=== PATIENT | female | born 1935 | race Caucasian/White ===

== ENCOUNTER 2017-03-12 03:55 | Inpatient (IN) | payer OTHER, MEDICARE ==
[~2017-03-12] VITALS: Ht 160 cm; Wt 71.8 kg
[~2017-03-12 03:55] MED LIST: ADVAIR 250-501 EACH INH; ANASTROZOLE1 M1 PO; ASPIRIN EC81 M1 PO; BYSTOLIC5 M1 PO; LISINOPRIL10 M1 PO; LIVALO4 M1; PEPCID20 M1 PO; SPIRIVA18 MCG INH; ZETIA10 M1 PO
--- NOTE | 2017-03-12 15:08 | Admission Core Measures ---
Acute Coronary Syndrome Inclusion Criteria ACS Diagnosis No Inpatient Core Measures LDL Reminder: If No, please order W/I first 24hr of stay Congestive Heart Failure Inclusion Criteria CHF Diagnosis No Cerebrovascular accident Inclusion Criteria CVA/TIA Diagnosis No Inpatient Core Measures Bedside Swallow Eval Reminder: If BSE failed, place ST order Antithrombotic Reminder: Order Antithrombotic Medication by end of day 2 Antithrombotic Reminder: Document Reason Antithrombotic Not ordered by end of day 2 AFIB/Flutter Reminder: If Present, add to problem list AFIB/Flutter Reminder: Order Anticoag Medication for pts with AFIB/Flutter Atherosclerosis Reminder: If Present, add to problem list LDL Reminder: If No, please order W/I first 24hr of stay PT Order Reminder: If No, please order Venous thromboembolism Inpatient Core Measures VTE Risk Factors: Age > 40, Surgery [facility] VTE prophylaxis d/t No contraindications No VTE Pharm Prophylaxis d/t No contraindications Inclusion Criteria - Per Current guidelines, there needs to be overlap - treatment for the first 5 days of Warfarin therapy. - Parenteral Anticoagulation (IV or SC) needs to be - given along with Warfarin therapy. VTE Diagnosis No VTE Type NONE VTE Confirmed by (Test) NONE Problem List As ranked by this Provider includes Assessment & Plan 1. Lung cancer, upper lobe HOME MEDS Home Med List Anastrozole 1 MG TABLET 1 TAB PO DAILY BREAST CANCER (Reported) Aspirin (Ecotrin*) 81 MG TABLET.DR 1 TAB PO DAILY PROPHO (Reported) Ezetimibe (Zetia) 10 MG TABLET 1 TAB PO NIGHTLY CHOLESTEROL (Reported) Famotidine (Pepcid) 20 MG TABLET 1 TAB PO DAILY PRN GERD (Reported) Lisinopril 10 MG TABLET 1 TAB PO NIGHTLY HTN (Reported) Nebivolol HCl (Bystolic) 5 MG TABLET 1 TAB PO DAILY HTN (Reported) Tiotropium [place] (Spiriva) 18 MCG CAP.W.DEV 1 CAP INH DAILY COPD (Reported)
--- NOTE | 2017-03-12 15:41 | RADIOLOGY REPORT ---
EXAMINATION: XR PORTABLE CHEST CLINICAL INFORMATION: Status post right lobectomy. COMPARISON: CT from 02/11/2017 TECHNIQUE: Portable frontal view of the chest was obtained. FINDINGS: A right-sided chest tube is in place extending to the right apex. Cardiac leads overlie the chest. The lungs are well expanded. There is a hazy left basilar opacity suggestive of a small pleural effusion. Right perihilar opacity noted. There is no pneumothorax seen. Subcutaneous emphysema overlies the right chest wall. The cardiomediastinal silhouette is prominent with a calcified aorta. IMPRESSION: Right-sided chest tube in place with no pneumothorax seen. Right perihilar opacity is present. Small left pleural effusion.
--- NOTE | 2017-03-12 16:00 | Cons- CRCU ---
KIRA ALDRIDGE 03/12/17 1600: General Information and HPI Consulting Request Date of Consult: 03/12/17 Requested By: Dr jiménez Reason for Consult: s/p Right upper lobe wedge resection. Mediastinal lymph node dissection History of Present Illness: This is a 81 YO female previous smoker (quit 17 years ago), daily one glass of cocktail at dinner, no illicit drug abuse with past medical history of hypertension, hyperlipidemia, CAD s/p 1 stent in 2001, previous diagnosis of stage 2 breast cancer in 2012 s/p lumpectomy and radiation, susbsequent primary malignant neoplasm of bladder s/p cystourethroscopy, with fulgurations/resection of the bladder tumor and previous left lobe resection in 2013, found to be adenocarcinoma of lung, being followed after that with regular surveillance, with PET scan in november 2016 showing 8 mm spiculated lung nodule at the anterior inferior right perihilar part of the right upper lobe with increased metabolic activity and high suspicion for malignancy, was admitted to same-day surgery for right upper lobe wedge resection. She also had pulmonary function test at this and the current test compared to test done in 2013 prior to surgery, she has an FEV1 of 1.5 L which is 87% of predicted, compared to 1.8 L which was 100% predicted on previous surgery, her DLCO was 47% (compared to 76% before), therefore pulmonary clearance was obtained and patient was planned for the right upper lobe resection. She did have a nondiagnostic CT needle biopsy.She is now status post day 0 of Right upper lobe wedge resection with mediastinal lymph node dissection. Currently she did complain of 5-6 out of 10 pain at the incision site, however she has a MANAGER CARDIOVASCULAR pump, and she was asked to use it whenever in pain. Otherwise she did not have any other complaint, her vitals are stable. Allergies/Medications Current Medications: Current Medications Sig/Juaquin Start time Last Medication Dose Route Stop Time Status Admin Morphine Sulfate 100 MG Q24H PRN 03/12 1545 AC Sodium Chloride 48 ML IV Review of Systems Review of Systems Constitutional: Denies: chills, diaphoresis, fever, malaise, weakness. EENTM: Denies: blurred vision, double vision, visual changes. Cardiovascular: Denies: chest pain, edema, orthopena. Respiratory: Denies: see HPI. GI: Denies: abdominal pain, bloating, constipation. Genitourinary: Reports: no symptoms. Past History Medical History Cardiovascular: CAD, hypertension, hyperlipidemia Respiratory: COPD Cancer(s): bladder cancer, breast cancer, lung cancer Surgical History Surgical History: , lumpectomy, cystourethroscopy,partial mastectomy, angioplasty, PTCA in 2001,bladder tumor removal Psychosocial History Where Do You Live? Home Who Do You Live With? spouse Services at Home: None Smoking Status: Former Smoker ETOH Use: daily one glass Illicit Drug Use: denies illicit drug use Functional Ability ADLs Independent: dressing, eating, toileting, bathing. Ambulation: independent IADLs Independent: shopping, housework, finances, food prep, telephone, transportation , medication admin. Exam & Diagnostic Data Last 24 Hrs of Vital Signs/I&O Vital Signs Date Time Temp Pulse Resp B/P B/P Pulse O2 O2 Flow FiO2 Mean Ox Delivery Rate 03/12 193 Nasal 2.0L Cannula 03/12 1900 97.0 70 37 124/64 03/12 1900 95 Nasal 2.0L Cannula 03/12 1900 97.0 70 20 124/64 95 Nasal 2.0L Cannula 03/12 1900 98 Nasal 2.0L Cannula Physical Exam General Appearance: well developed/nourished, no apparent distress, alert, awake Head: atraumatic, normal appearance Eyes: Bilateral: PERRL, EOMI. Ears, Nose, Throat: oral thrush Neck: normal inspection, supple Respiratory: decreased breath sounds b/l, coarse sound right side, drain present. dressing present Cardiovascular: regular rate/rhythm Back: normal inspection Extremities: normal inspection Diagnostic Data CXR Results SERVICE DATE: 03/12/17 EXAM TYPE: RAD - XRY-PORTABLE CHEST XRAY EXAMINATION: XR PORTABLE CHEST CLINICAL INFORMATION: Status post right lobectomy. COMPARISON: CT from 02/11/2017 TECHNIQUE: Portable frontal view of the chest was obtained. FINDINGS: A right-sided chest tube is in place extending to the right apex. Cardiac leads overlie the chest. The lungs are well expanded. There is a hazy left basilar opacity suggestive of a small pleural effusion. Right perihilar opacity noted. There is no pneumothorax seen. Subcutaneous emphysema overlies the right chest wall. The cardiomediastinal silhouette is prominent with a calcified aorta. IMPRESSION: Right-sided chest tube in place with no pneumothorax seen. Right perihilar opacity is present. Small left pleural effusion. Other Results SERVICE DATE: 12/16/16 EXAM TYPE: PET - PET CT [facility] EXAMINATION: Whole-body PET CT scan. CLINICAL HISTORY: 81-year-old female with history of lung cancer, status post left upper lobar lobectomy. Found to have a suspicious spiculated right upper lobar 8 mm lung nodule on recent CT scan of the chest done on 12/08/2016. Follow-up whole-body PET CT scan is requested for further clarification.. COMPARISON: CT of the chest done on 12/08/2016.. TECHNIQUE: A whole body PET/CT scan was obtained following intravenous administration of 8.1 mCi of F-18 labeled FDG by the right antecubital superficial vein. 55 minutes following administration of the radiotracer, imaging was performed on an integrated 4 slice PET/CT scanner, with scanning from skull base to the mid thigh. CT scanning was performed without oral or intravenous contrast material. DLP: 452.83 mGy-cm. FINDINGS: HEAD AND NECK: No metabolically active disease is present. CHEST: The indexed 8 mm spiculated lung nodule seen along the anteroinferior perihilar part of the right upper lobe of the lung shows [id number] increase metabolic activity with maximum SUV of 3, highly suspicious for malignancy. Stable postsurgical changes of left upper lobar lung lobectomy present. Nonspecific ground-glass opacities are noted at left lower as well as right lower lobe of the lung without any metabolic activity. No metabolically active lymphadenopathy is identified within the mediastinum. Atherosclerotic disease including coronary artery calcifications are present. There is mild cardiomegaly present.. ABDOMEN AND PELVIS: No metabolically active disease is present. Incidental note is made of cholelithiasis without any CT features of acute cholecystitis or biliary obstruction. Moderate-sized posterior mediastinal hiatal hernia is noted. Diffuse atherosclerotic disease is noted within the aorta and is branches. MUSCULOSKELETAL SYSTEM: No metabolically active disease is noted.. IMPRESSION: 1. The indexed 8 mm clinically known spiculated lung nodule is seen at anteroinferior right perihilar part of the right upper lobe of the lung shows increased metabolic activity, highly suspicious for malignancy. 2. No evidence of any metabolic disease is identified within the mediastinum or remainder of the lung robertson on either side as well as within the abdomen and pelvis. 3. Incidental note is made of presence of cholelithiasis and moderate-sized posterior mediastinal hiatal hernia and diffuse atherosclerotic disease within the aorta. Assessment/Plan Impression/Plan: In summary this is a 81 YO female previous smoker (quit 17 years ago), daily one glass of cocktail at dinner, no illicit drug abuse with past medical history of hypertension, hyperlipidemia, CAD s/p 1 stent in 2001, previous diagnosis of stage 2 breast cancer in 2012 s/p lumpectomy and radiation, susbsequent primary malignant neoplasm of bladder s/p cystourethroscopy, with fulgurations/resection of the bladder tumor and previous left lobe resection in 2013, found to be adenocarcinoma of lung, being followed after that with regular surveillance, with PET scan in november 2016 showing 8 mm spiculated lung nodule at the anterior inferior right perihilar part of the right upper lobe with increased metabolic activity and high suspicion for malignancy, was admitted to same-day surgery for right upper lobe wedge resection, now status post right upper lobe wedge resection day 0. Her vitals now, she is afebrile, pulse of 70s, respiratory rate around 20 to 30s , blood pressure stable at 124/64, she is 95% saturating on 2 L of nasal cannula. no lab wokrk done today. Echocardiogram recently done on January 2017 showed normal left ventricular ejection fraction of 60%, diastolic dysfunction, see the entire report in the chart. Problem list along with assessment and plan. Problem #1 history of adenocarcinoma of the lung status post left and now right upper lobe wedge resection. Problem #2 history of hypertension. #3 history of hyperlipidemia. #4 history of coronary artery disease status post stent #5 history of bladder and breast cancer, now in remission. * We will observe the patient in the ICU after the resection. * ct monitor intakes and outputs. * Continue post thoracotomy care. * Continue to check electrolytes and replete as necessary. * Keep magnesium, phosphorus and potassium within normal limit. * Continue home medications from a.m. * Continue Bystolic 5 mg daily from tomorrow. * Continue zetia 10 mg daily from a.m. * Her blood pressure is on the lower side therefore we will hold antihypertensive medications for now. * Can resume from tomorrow lisinopril 10 mg daily depending on the blood pressure. Continue IV hydration. * Continue patient-controlled MANAGER CARDIOVASCULAR pump for pain management. * Continue Hooper's for now, discontinue whenever not needed. * Advance diet as tolerated. DVT prophylaxis with heparin. Out of bed to chair. Pain management with morphine MANAGER CARDIOVASCULAR Her home medication : Lisinopril 10 mg daily.anastrozole 1 mg daily, Zetia 10 mg daily,Advair 2 puffs daily, Spiriva 2 puffs daily, Bystolic 5 mg daily, Pepcid when necessary basis, baby aspirin 81 mg daily. Problem List: 1. Lung cancer 2. Lung cancer, upper lobe 3. Bladder cancer 4. Breast cancer 5. Hypertension 6. Hypercholesterolemia 7. COPD (chronic obstructive pulmonary disease) Consult Acknowledgment - Thank you for your consult request. ACOSTA THURMAN,THOMAS 03/12/17 2528: General Information and HPI Allergies/Medications Allergies: Coded Allergies: ciprofloxacin (From CIPRO) (? 03/11/17) hydromorphone (UNKNOWN 03/12/17) ragweed pollen (UNKNOWN 03/13/17) Home Med List: Anastrozole 1 MG TABLET 1 TAB PO DAILY BREAST CANCER (Reported) Aspirin (Ecotrin*) 81 MG TABLET.DR 1 TAB PO DAILY PROPHO (Reported) Ezetimibe (Zetia) 10 MG TABLET 1 TAB PO NIGHTLY CHOLESTEROL (Reported) Famotidine (Pepcid) 20 MG TABLET 1 TAB PO DAILY PRN GERD (Reported) Fluticasone/Salmeterol (Advair 250-50 Diskus) 250 MCG-50 MCG/DOSE BLST.W.DEV 1 PUF INH BID COPD (Reported) Lisinopril 10 MG TABLET 1 TAB PO NIGHTLY HTN (Reported) Nebivolol HCl (Bystolic) 5 MG TABLET 1 TAB PO DAILY HTN (Reported) Pitavastatin Cal[place] (Livalo) 4 MG TABLET CHOLESTEROL (Reported) Tiotropium [place] (Spiriva) 18 MCG CAP.W.DEV 1 CAP INH DAILY COPD (Reported) Exam & Diagnostic Data Last 48 Hrs of Labs/Roland: Laboratory Tests 03/13/17 0340: Anion Gap 9, Estimated GFR > 60, BUN/Creatinine Ratio 20.0, CBC w Diff MAN DIFF ORDERED, RBC 3.69 L, MCV 92.5, MCH 30.2, RDW 13.4, MPV 8.5, Gran % 89.2 H, Lymphocytes % 5.0 L, Monocytes % 5.6, Eosinophils % 0, Basophils % 0.2, Absolute Granulocytes 9.7 H, Segmented Neutrophils 83 H, Band Neutrophils 5, Absolute Lymphocytes 0.5 L, Lymphocytes 6 L, Monocytes 6, Absolute Monocytes 0.6, Absolute Eosinophils 0, Absolute Basophils 0, Platelet Estimate ADEQUATE, Polychromasia 1+, Hypochromic-Microcytic 1+, Poikilocytosis 1+, Ovalocytes 1+, PUBS MCHC 32.7 L, Fld Total RBCs Counted 100 Assessment/Plan Other Findings/Comments: Thomas Garay M.D. have examined this patient, reviewed available EMR data, personally reviewed images, discussed with resident/PA/JOINERY MACHINIST, discussed management plan with housestaff and nursing staff, discussed managment plan all of healthcare providers, discussed management plan with patient and/or family, agreed with resident/PA/JOINERY MACHINIST. The past history and parts of the chart have been autopopulated. 81 year old woman. Resection history of the left upper lobe performed by Dr. Jiménez 2013. Had a PFT 02/25/2017. Mild obstruction. FEV1 - 1.52 - 87%, FVC - 2.4 - 101% predicted. TLC - 4.42 - 90 % DLCO 47% Resumed Advair and Spiriva with improvement of symptoms. Notably her DLCO is reduced from 76% to 47%. She is doing otherwise very well with excellent room air saturation. Her CT shows 1. Interval significant increase in size of the right upper lobe mass is seen, suspicious for an enlarging malignant neoplasm. 2. Other multifocal areas of ill-defined groundglass opacities, primarily associated with airways remain relatively stable and are indeterminate in etiology. These will require continued serial follow-up assessment. 3. Borderline mediastinal adenopathy. 4. Post lumpectomy scarring in the left breast, unchanged. She is now s/p RUL wedge resection with a medisatinal LN dissection. Plan -post thoracotomy care -pain control -oob as tolerated -monitor ins/outs -TRC DVT prophylaxis at all times TTS 40 min Consult Acknowledgment - Thank you for your consult request.
--- NOTE | 2017-03-12 16:00 | Cons- CRCU ---
General Information and HPI Consulting Request Date of Consult: 03/12/17 Requested By: Dr. Obando Allergies/Medications Allergies: Coded Allergies: MDX - Hydromorphone (From Dilaudid) (UNKNOWN 09/23/13) DILAUDID PER ANTIBIOTIC ORDER SHEET OF 09/23/13 - SJS ciprofloxacin (From CIPRO) (? 03/11/17) Uncoded Allergies: ragweed (UNKNOWN 10/20/13) Home Med List: [ADVAIR] COPD (Reported) Anastrozole 1 MG TABLET 1 TAB PO DAILY BREAST CANCER (Reported) Aspirin (Ecotrin*) 81 MG TABLET.DR 1 TAB PO DAILY PROPHO (Reported) Ezetimibe (Zetia) 10 MG TABLET 1 TAB PO NIGHTLY CHOLESTEROL (Reported) Famotidine (Pepcid) 20 MG TABLET 1 TAB PO DAILY PRN GERD (Reported) Lisinopril 10 MG TABLET 1 TAB PO NIGHTLY HTN (Reported) Nebivolol HCl (Bystolic) 5 MG TABLET 1 TAB PO DAILY HTN (Reported) Pitavastatin Calcium (Livalo) 4 MG TABLET CHOLESTEROL (Reported) Tiotropium [place] (Spiriva) 18 MCG CAP.W.DEV 1 CAP INH DAILY COPD (Reported) Current Medications: Current Medications Sig/Juaquin Start time Last Medication Dose Route Stop Time Status Admin Morphine Sulfate 100 MG Q24H PRN 03/12 1545 AC Sodium Chloride 48 ML IV Past History Psychosocial History Services at Home: None Smoking Status: Unknown If Ever Smoked Assessment/Plan Consult Acknowledgment - Thank you for your consult request.
--- NOTE | 2017-03-12 17:09 | PN- Thoracic Surgery ---
Subjective Subjective: nausea, no vomiting. getting antiemetic now. pain present, but controlled. no sob. no oob yet. Objective Vital Signs and I&Os Intake & Output 03/12 1600 03/12 0800 03/12 0000 03/11 1600 03/11 0800 03/11 0000 Intake Total Output Total Balance Patient 160 lb Weight Physical Exam: GEN: nad CARD: s1s2 rrr PULM: decreased bs bl, coarse right, R lateral CT to lcws- no AL, serosang drainage in pleurovac, approx 50cc. dressings CDI, ttp at incision EXT: calves soft nt bl, ALPS on bl Results Recent Imaging Studies: PACU portable CXR: no PTX Assessment/Plan Assessment/Plan A: POD0 sp R thoracotomy, RUL wedge rsxn, with postop nausea and pain, otherwise stable. P: morphine clipper counters for pain hep sq, alps, oob advance diet as tolerated, HL once tolerating CT to lcws strict I&Os castaneda- keep for I&Os, immediate postop period appreciate medicine input cont home meds as ordered will seda Obando Core Measures/Miscellaneous Venous Thromboembolism VTE Risk Factors: Surgery VTE Contraindications: No Contraindications VTE Diagnosis: No VTE Type: NONE VTE Confirmed by (Test): NONE Beta Pam Is Beta Pam a Home Med? Yes If Yes, Was This Ordered Today? Yes Antibiotics Is Patient on Antibiotics? Yes If Yes: prophylaxis
--- NOTE | 2017-03-12 18:15 | Admission Certification ---
Admission Certification Certification Statement - As attending physician, I certify that at the time of - admission, based on clinical presentation, severity of - symptoms, need for further diagnostic testing and - therapeutic interventions, and risk of adverse outcomes - without in-hospital treatment, in my clinical assessment, - this patient requires an acute hospital stay for a minimum - of two nights or longer. I have also considered psychsocial - factors such as support system, advanced age, financial - issues, cognitive issues, and failed out-patient treatments, - past re-admission history, safety of patient, and lack of - compliance as applicable. Specific rationale supporting this admission is: Neto. chest surgery with intensive care unit stay
--- NOTE | 2017-03-12 18:20 | Operative Report ---
Operative/Inv Procedure Report Surgery Date: 03/12/17 Name of Procedure: Right upper lobe wedge resection. Mediastinal lymph node dissection Pre-Operative Diagnosis: Right upper lobe lung nodule Post-Operative Diagnosis: Right upper lobe adenocarcinoma Estimated Blood Loss: less than 50ml, 50ml to 100ml Surgeon/Winch Stripper: LAMINE THURMAN,ARNEL Burns Anesthesia: general endotracheal tube Operative/Procedure Note Note: After placement of monitoring lines and induction of general anesthesia the double-lumen endotracheal tube was properly positioned with fiberoptic bronchoscopy. The patient was placed in the left lateral decubitus position and her right chest was prepped with chlorhexidine scrub and draped in a sterile fashion. A posterolateral thoracotomy incision was made and the chest was entered through the fifth intercostal space. The tumor was seen in the major fissure at the base at the confluence of the major and minor fissures. Dissection was done to free it from the surrounding tissue and it was obvious that further dissection deep could potentially compromise the pulmonary artery branches to the lower lobe. The patient certainly was not in a position to tolerate any compromise of her lower lobe function. She was having episodes of minor desaturations that were fixed by ventilating the lung periodically. Given the above events a decision was made that a sub-anatomic resection was necessary and that a formal right upper lobectomy would be potentially hazardous for the patient. Wedge resections were done with total removal of the tumor and multiple applications of the ABDIAZIZ stapler. Intraoperative frozen section showed an adenocarcinoma. Lymph nodes were resected from level for level VII and level IX sent for permanent histology. The resection area was sprayed with Pro seal sprayed to seal air leaks. Long-acting rib blocks were placed posteriorly. The chest was drained with a 28 [place] chest tube placed to the apex. The ribs were reapproximated pericostal suture and the lung was reinsufflated. The incision was then closed anatomically with running Vicryl suture. The patient tolerated the procedure well and brought to the recovery room awake and extubated in stable condition.
[2017-03-12 19:00] VITALS: BP 124/64
[2017-03-12 21:00] VITALS: BP 80/64; BP 88/60
[2017-03-12 22:00] VITALS: BP 80/54; BP 86/50
[2017-03-12 23:59] VITALS: BP 98/52
[2017-03-13] VITALS (10 sets, daily range): BP systolic 98–139; BP diastolic 43–88
--- NOTE | 2017-03-13 02:35 | NUR ---
PATIENT IS A/O X 3, MOVES ALL THE LIMBS, OBEYS COMMANDS, COMPLAIN OF MILD RIGHT LATERAL CHEST WALL PAIN RELATED TO THE CHEST TUBE INSERTION, ON AUTO SEAT COVER INSTALLER MORPHINE. AFEBRILE, SINUS RHYTHM, SYSTOLIC NON INVASIVE BP IS RANGING FORM 80'S TO 90'S AND ITS CORRELATING WITH ARTERIAL LINE AND AUTO CALF BP. 500 ML OF D5 1/2 NS GIVEN BOLUS, BP PICKED UP TO HIGH 90'S. BREATHING ON 2 LITER NC, LUNGS IS CLEAR TO DIMINISHED, GOOD OXYGEN SATURATION. ABDOMEN IS SOFT, HAS GOOD BOWEL SOUNDS, ON CLEAR LIQUID DIET. TOMORROW TO START HEART HEALTHY DIET. RANDALL CATHETER IS INTACT NOTED WITH CLEAR YELLOW URINE OUTPUT AT 30 TO 60 ML/HR. SKIN IS INTACT EXCEPT FOR THE CHEST TUBE SITE INSERTION. AT 0230, DR. ELZBIETA ALMARAZ INFORMED THAT THE SYSTOLIC BP REMAIN AT THE 80'S SYSTOLIC AND ITS CORRELATES WITH THE ARTERIAL BP. AWAITING NEW ORDER.
--- NOTE | 2017-03-13 02:49 | NUR ---
AT 0247, RECEIVED A PHONE FROM DOCTOR ALMARAZ, ORDERED TO GIVE NS 500 ML OVER 1 HOUR, TO KEEP SYSTOLIC BP ABOVE 90 MMHG.
[2017-03-13 04:25] LABS: ABSOLUTE BASOPHIL COUNT 0 /CUMM (0.0-0.2); ABSOLUTE EOSINOPHIL COUNT 0 /CUMM (0.0-0.7); ABSOLUTE GRANULOCYTE CT 9.7 /CUMM (1.4-6.5); ABSOLUTE LYMPH COUNT 0.5 /CUMM (1.2-3.4); ABSOLUTE MONOCYTE COUNT 0.6 /CUMM (0.10-0.60); BASOPHIL % 0.2 % (0.0-2.0); EOSINOPHIL % 0 % (0-5); GRANULOCYTE % 89.2 % (42.2-75.2); HEMATOCRIT 34.1 % (37-47); MEAN CORPUSCULAR HGB 30.2 PG (27.0-31.0); MEAN CORPUSCULAR HGB CONC 32.7 G/DL (33.0-37.0); MEAN CORPUSCULAR VOLUME 92.5 FL (81.0-99.0); MEAN PLATELET VOLUME 8.5 FL (7.4-10.4); PLATELET COUNT 235 /CUMM (130-400); RBC DISTRIBUTION WIDTH 13.4 % (11.5-14.5); RED BLOOD CELL CT 3.69 /CUMM (4.20-5.40); WHITE BLOOD CELL COUNT 10.9 /CUMM (4.8-10.8)
--- NOTE | 2017-03-13 04:26 | PN- Thoracic Surgery ---
Subjective Subjective: The patient was seen this morning postoperatively day #1. She reports her pain is under adequate control and he denies any true chest pain, difficulty breathing, or palpitations. She had no other complaints at the current time. Objective Vital Signs and I&Os Vital Signs Date Time Temp Pulse Resp B/P B/P Pulse O2 O2 Flow FiO2 Mean Ox Delivery Rate 03/13 0044 96 Nasal 2.0L Cannula 03/13 0000 97.8 66 28 98/52 / 0000 97.8 66 28 110/50 / 0000 95 Nasal 2.0L Cannula 03/12 2359 97.8 66 28 98/52 95 Nasal 2.0L Cannula 03/12 2200 97.3 64 22 80/54 / 2200 97.3 64 22 86/50 15 2100 97.3 63 18 80/64 / 2100 97.3 63 17 88/60 03/12 1932 Nasal 2.0L Cannula 03/12 1900 97.0 70 37 124/64 03/12 1900 97.0 70 22 124/64 03/12 1900 95 Nasal 2.0L Cannula 03/12 1900 97.0 70 20 124/64 95 Nasal 2.0L Cannula 03/12 1900 98 Nasal 2.0L Cannula Intake & Output 03/13 0800 /16 0000 15 1600 15 0800 03/12 0000 03/11 1600 Intake Total 750 Output Total 625 Balance 125 Intake, IV 450 Intake, Oral 300 Output, Chest 275 Tube Drainage Output, Urine 350 Patient 159 lb 160 lb Weight Weight Reported by Patient Measurement Method Physical Exam: Gen.: Alert and in no obvious distress Skin: Warm and dry Chest: Right chest surgical dressing is slightly blood tinged but otherwise intact. His a chest tube in place with serosanguineous drainage in the Pleur- evac. There is no appreciated air leak. Cardiac: S1 and S2 regular Pulmonary: Bilateral breath sounds were equal and decreased at bases, transmitted chest tube noises in the right chest, no wheezes rales or rhonchi. Extremities: Bilateral lower extremities are warm without calf tenderness Assessment/Plan Assessment/Plan Assessment: 81-year-old female status post right thoracotomy with upper lobe wedge resection postoperative day #1. The patient is progressing as expected, her pain is under adequate control, and she is oxygenating adequately on minimal O2 requirements. Plan: Follow-up morning laboratory studies and chest x-ray Keep Hooper catheter and IV hydration until improved blood pressure Strict I's and O's Continue chest tube to suction. If the chest x-ray shows no pneumothorax the patient be put to waterseal Continue current pain regiment Out of bed to chair this morning GI and DVT prophylaxis Total respiratory care per postthoracotomy protocol Follow-up pulmonary/pedicle care consultation recommendations Core Measures/Miscellaneous Venous Thromboembolism VTE Risk Factors: Surgery VTE Contraindications: No Contraindications VTE Diagnosis: No VTE Type: NONE VTE Confirmed by (Test): NONE Beta Pam Is Beta Pam a Home Med? Yes If Yes, Was This Ordered Today? Yes Antibiotics Is Patient on Antibiotics? No
--- NOTE | 2017-03-13 07:30 | PN- Resident CRCU ---
AGUILAR THURMAN,ISARIL 03/13/17 0730: Subjective HPI/CRCU Issues: POD#1 post thoracotomy. Afebrile, hemodynamically stable, and saturating well on 2 L of oxygen. Chest pain is fairly controlled. She denies cough, dyspnea, or palpitation. Objective Vital Signs & I&O Last 8 Hrs of Vitals and I&O: Vital Signs Date Time Temp Pulse Resp B/P B/P Pulse O2 O2 Flow FiO2 Mean Ox Delivery Rate 03/13 0951 73 118/55 03/13 0800 97.7 66 24 114/60 03/13 0800 97.7 66 24 114/60 03/13 0800 96 Nasal 2.0L Cannula 03/13 0800 97.7 66 24 114/60 96 Nasal 2.0L Cannula 03/13 0600 97.5 66 27 102/52 03/13 0600 97.5 66 27 106/52 03/13 0400 97.5 64 29 132/88 03/13 0400 97.5 64 29 132/88 03/13 0400 95 Nasal 2.0L Cannula 03/13 0044 96 Nasal 2.0L Cannula 03/13 0000 97.8 66 28 98/52 / 0000 97.8 66 28 110/50 /16 0000 95 Nasal 2.0L Cannula 03/12 2359 97.8 66 28 98/52 95 Nasal 2.0L Cannula 03/12 2200 97.3 64 22 80/54 03/12 2200 97.3 64 22 86/50 03/12 2100 97.3 63 18 80/64 03/12 2100 97.3 63 17 88/60 03/12 1932 Nasal 2.0L Cannula 03/12 1900 97.0 70 37 124/64 03/12 1900 97.0 70 22 124/64 03/12 1900 95 Nasal 2.0L Cannula 03/12 1900 97.0 70 20 124/64 95 Nasal 2.0L Cannula 03/12 1900 98 Nasal 2.0L Cannula Intake & Output 03/13 1600 16 0800 03/13 0000 Intake Total 1925 750 Output Total 535 625 Balance 1390 125 Intake, IV 1675 450 Intake, Oral 250 300 Output, Chest 75 275 Tube Drainage Output, Urine 460 350 Patient 72.206 kg Weight Weight Reported by Patient Measurement Method Exam General Appearance: well developed/nourished, no apparent distress, alert, awake , comfortable Head: atraumatic, normal appearance Respiratory: mild scattered rhonchi Cardiovascular: regular rate/rhythm Gastrointestinal: normal bowel sounds, soft, non-tender Extremities: normal inspection, no edema Other Physical Findings: Chest tube drained 400 Ml of bloody fluid Current Medications: Current Medications Sig/Juaquin Start time Last Medication Dose Route Stop Time Status Admin Albuterol Sulfate 3 ML Q4 03/12 2200 AC 03/13 INH 0826 Anastrozole 1 MG DAILY 03/13 1000 AC 03/13 PO 0951 Budesonide/ 2 PUF BID 03/12 2200 AC 03/13 Formoterol Fumarate INH 0950 Calcium Carbonate 500 MG ONCE ONE 03/13 0900 DC 03/13 PO 03/13 0901 0903 Cefazolin Sodium 1,000 MG IQ8 03/12 1600 DC 03/13 IV 03/13 0001 0017 Dextrose/Sodium 500 ML .Q1H 03/12 2345 DC 03/13 Chloride IV 03/13 0044 0005 Dextrose/Sodium 1,000 ML .[id number] 03/12 1930 AC 03/13 Chloride IV 0906 Diphenhydramine HCl 50 MG .STK-MED ONE 03/12 1656 DC IM 03/12 1657 Ezetimibe 10 MG DAILY 03/13 1000 AC 03/13 PO 0950 Famotidine 20 MG DAILY 03/13 1000 AC 03/13 PO 0741 Heparin Sodium 5,000 UNIT Q8 03/12 2200 AC 03/13 (Porcine) SC 0515 Hydromorphone HCl 2 MG .STK-MED ONE 03/12 1512 DC IM 03/12 1513 Lisinopril 10 MG 1700 03/12 1930 AC PO Morphine Sulfate 200 MG CONTINOUS INFUSION 03/12 1930 CAN Sodium Chloride 86.67 ML IV 03/15 1929 Morphine Sulfate 10 MG .STK-MED ONE 03/12 1656 DC IM 03/12 1657 Morphine Sulfate 100 MG Q24H PRN 03/12 1545 AC Sodium Chloride 48 ML IV Morphine Sulfate 10 MG .STK-MED ONE 03/12 1512 DC IM 03/12 1513 Nebivolol 5 MG DAILY 03/13 1000 AC PO Ondansetron HCl 4 MG Q6P PRN 03/12 1930 AC 03/13 IV 0850 Sodium Chloride 500 ML BOLUS ONE 03/13 0245 DC / IV 03/13 0344 0245 Tiotropium [place] 1 PUF DAILY 03/13 1000 AC 03/13 INH 0950 Impression/Plan Impression/Problem List Impression: 81/F S/P right thoracotomy with upper lobe wedge resection POD#1. Saturating well on 2 L of oxygen, he reported pain being well controlled, just you in place. Physical Exam look normal #Lung cancer Post right thoracotomy * Keep oxygen above 92% * Continue monitor chest tube suction * We will repeat chest x-ray later today, if no pneumothorax she will be on under waterseal as per surgery * Continue current pain management * Ambulate MICHA * We will follow rib matcher and fitter recommendations #Hypertension and dyslipidemia * On Nebivolol and lisinopril (hold both given the low blood pressure) * On Ezetimibe for dyslipidemia. * Continue Strict I's and O's Heart healthy diet GI & DVT PPx: Full code Problem List: 1. COPD (chronic obstructive pulmonary disease) 2. Lung cancer Pain Ratin Tomorrow's Labs & Rationales: CBC and PEEP Plan DVT/Prophylaxis: THOMAS Quiñones MD 03/13/17 0859: Attending MD Review Statement Attending Sign Off Attending Cosign Statement: I have: examined this patient, reviewed avalbl EMR data, personally reviewd images, discussd w/resident/PA/CONTENT COORDINATOR, discussed mgmt plan w/lenin, discussed mgmt plan w/CM, discussed mgmt plan w/pt, agreed w/resident/PA/CONTENT COORDINATOR, amended to note. Other Findings: IThomas M.D. have examined this patient, reviewed available EMR data, personally reviewed images, discussed with resident/PA/CONTENT COORDINATOR, discussed management plan with housestaff and nursing staff, discussed managment plan all of healthcare providers, discussed management plan with patient and/or family, agreed with resident/PA/CONTENT COORDINATOR. The past history and parts of the chart have been autopopulated. 81 year old woman. Resection history of the left upper lobe performed by Dr. Obando 2013. Had a PFT 02/25/2017. Mild obstruction. FEV1 - 1.52 - 87%, FVC - 2.4 - 101% predicted. TLC - 4.42 - 90 % DLCO 47% Resumed Advair and Spiriva with improvement of symptoms. Notably her DLCO is reduced from 76% to 47%. She is doing otherwise very well with excellent room air saturation. Her CT shows 1. Interval significant increase in size of the right upper lobe mass is seen, suspicious for an enlarging malignant neoplasm. 2. Other multifocal areas of ill-defined groundglass opacities, primarily associated with airways remain relatively stable and are indeterminate in etiology. These will require continued serial follow-up assessment. 3. Borderline mediastinal adenopathy. 4. Post lumpectomy scarring in the left breast, unchanged. She is now s/p RUL wedge resection with a medisatinal LN dissection. Plan -post thoracotomy care -pain control -oob as tolerated -monitor ins/outs -TRC DVT prophylaxis at all times TTS 40 min
--- NOTE | 2017-03-13 08:16 | RADIOLOGY REPORT ---
EXAMINATION: XR PORTABLE CHEST CLINICAL INFORMATION: Right upper lobe wedge resection. COMPARISON: CXR from 12/23/2016 and 03/12/2017 TECHNIQUE: Portable frontal view of the chest was obtained. FINDINGS: Again noted is postoperative opacity in the perihilar region of the right lung, status post right upper lobe wedge resection, with right thoracostomy tube extending toward the apex of the hemithorax. No evidence of pneumothorax. There are no new pulmonary findings compared to the prior radiograph. Cardiomediastinal silhouette has stable size and configuration. Thoracic aorta is calcified. There is no overt pleural effusion. IMPRESSION: Stable appearance of the postoperative chest with right thoracostomy tube in place.
--- NOTE | 2017-03-13 11:24 | RADIOLOGY REPORT ---
EXAMINATION: XR PORTABLE CHEST CLINICAL INFORMATION: Chest tube off suction. Status post right upper lobe wedge resection. Assess for pneumothorax. COMPARISON: 03/13/2017 TECHNIQUE: Portable frontal view of the chest was obtained. FINDINGS: Right-sided chest tube remains in place. There is no pneumothorax visualized. Persistent right perihilar airspace opacity status post right upper lobe wedge resection. Hazy left basilar opacity again noted. The cardiomediastinal silhouette is unchanged, with a calcified aorta. IMPRESSION: No pneumothorax. Similar appearance of the lungs with right perihilar and left basilar opacities.
--- NOTE | 2017-03-13 19:47 | NUR ---
PT AAO AND ORIENTATED,2L NC NON PROD COUGH, [id number]%,MONITOR NSR, LAC IV HL., DSG TO BACK INTACT WITH SOME DRAINAGE FROM DAY SHIFT. HH DIET, POOR APPETITE DANGLED AT BEDSIDE,OOB TO BR TO VD,BACK TO BED VISITORS AT BEDSIDE. BEHAVIOR THERAPIST DEVICE IN USE BY PT. RESTING
[2017-03-14] VITALS (12 sets, daily range): BP systolic 100–143; BP diastolic 52–87
--- NOTE | 2017-03-14 02:12 | NUR ---
PATIENT IS A/O X 3, OPEN EYES SPONTANEOUSLY, PERRLA, MOVES ALL THE LIMBS, OBEYS COMMAND, COMPLAIN OF RIGHT LATERAL CHEST WALL PAIN S/P CHEST TUBE INSERTION AND MODERATE PAIN AT THE RIGHT UPPER BACK S/P WEDGE RESECTION, ON IV SHIPPING AND RECEIVING ASSOCIATE MORPHINE. VITALS SIGNS ARE STABLE HR=60'S TO 70'S, SBP=90'S TO 110'S, HAS A TMAX OF 100.5 AT 8PM, MD INFORMED, BLOOD CULTURE X 2 SENT, TYLENOL 650 MG STAT DOSE GIVEN. BREATHING SPONTANEOUSLY ON NC AT 2 LITERS, LUNGS IS CLEAR TO DIMINISHED, RR=20'S, HAS GOOD OXYGEN SATURATION AT 92 TO 98%, BILATERAL AIR ENTRY NOTED, NO SOB SEEN. ABDOMEN IS OBESE, ROUND, SOFT AND HAS GOOD BOWEL SOUNDS, ON HEART HEALTHY DIET BUT HAVE POOR APPETITE. ABLE TO VOID USING BEDPAN IN MODERATE AMOUNT. SKIN IS INTACT EXCEPT FOR THE OCCLUSIVE DREESING AT THE RIGHT LATERAL CHEST WALL S/P CHEST TUBE INSERTION AND DRESSING INTO THE RIGHT UPPER BACK S/P WEDGE RESCTION.
[2017-03-14 05:26] LABS: ABSOLUTE BASOPHIL COUNT 0 /CUMM (0.0-0.2); ABSOLUTE EOSINOPHIL COUNT 0.1 /CUMM (0.0-0.7); ABSOLUTE GRANULOCYTE CT 7.2 /CUMM (1.4-6.5); ABSOLUTE LYMPH COUNT 1.2 /CUMM (1.2-3.4); ABSOLUTE MONOCYTE COUNT 0.8 /CUMM (0.10-0.60); BASOPHIL % 0.4 % (0.0-2.0); EOSINOPHIL % 0.6 % (0-5); GRANULOCYTE % 77.3 % (42.2-75.2); HEMATOCRIT 37.8 % (37-47); MEAN CORPUSCULAR HGB 30.4 PG (27.0-31.0); MEAN CORPUSCULAR HGB CONC 32.7 G/DL (33.0-37.0); MEAN PLATELET VOLUME 9.1 FL (7.4-10.4); PLATELET COUNT 215 /CUMM (130-400); RBC DISTRIBUTION WIDTH 13.8 % (11.5-14.5); RED BLOOD CELL CT 4.07 /CUMM (4.20-5.40); WHITE BLOOD CELL COUNT 9.3 /CUMM (4.8-10.8)
--- NOTE | 2017-03-14 05:52 | PN- Thoracic Surgery ---
Subjective Subjective: Chest tube was removed yesterday. Pt reported some initial improvement in discomfort, but admits to soreness again this morning. Pain is worse with deep breathing. She has been having low grade temps to 100 since last night. Admits to generalized itching; just medicated with Benadryl. Also admits to reflux, for which she is receiving pepcid. CXR is pending this morning. She is otherwise tolerating some solids and passing flatus. No BM as of yet. She is voiding spontaneously and ambulated to the bathroom yesterday. Objective Vital Signs and I&Os Vital Signs Date Time Temp Pulse Resp B/P B/P Pulse O2 O2 Flow FiO2 Mean Ox Delivery Rate 03/14 0400 97.5 70 19 132/87 03/14 0400 95 Nasal 2.0L Cannula 03/14 0053 99.8 03/14 0035 99 Nasal 2.0L Cannula 03/14 0000 99.8 69 13 110/58 03/14 0000 99.8 69 13 110/58 03/14 0000 98 Nasal 2.0L Cannula 03/13 2359 99.8 69 13 110/58 98 Nasal 2.0L Cannula 03/13 2200 100.5 69 26 100/50 03/13 2116 100.5 03/13 2000 99.4 75 22 130/78 03/13 2000 99.4 75 22 130/78 03/13 2000 94 Nasal 2.0L Cannula 03/13 1646 97 Nasal 2.0L Cannula 03/13 1600 134/59 /16 1600 97.3 60 25 134/59 16 1600 97.3 69 25 139/80 100 Nasal 2.0L Cannula 03/13 1600 100 Nasal 2.0L Cannula 03/13 1400 72 24 102/43 16 1400 72 24 120/43 16 1210 94 Nasal 2.0L Cannula 03/13 1200 97.8 74 19 122/60 /16 1200 97.8 74 19 122/60 /16 1200 96 Nasal 2.0L Cannula 03/13 0951 73 118/55 /16 0800 97.7 66 24 114/60 06/16 0800 97.7 66 24 114/60 /16 0800 96 Nasal 2.0L Cannula 03/13 0800 97.7 66 24 114/60 96 Nasal 2.0L Cannula 03/13 0600 97.5 66 27 102/52 03/13 0600 97.5 66 27 106/52 Intake & Output 03/14 0800 03/14 0000 03/13 1600 03/13 0800 03/13 0000 03/12 1600 Intake Total 415 1192 1925 750 Output Total 380 960 535 625 Balance 35 232 1390 125 Intake, IV 40 472 1675 450 Intake, Oral 375 720 250 300 Number 0 Bowel Movements Output, Chest 60 75 275 Tube Drainage Output, Urine 380 900 460 350 Patient 159 lb Weight Weight Reported by Patient Measurement Method Physical Exam: General: Pt is awake and alert. NAD. Cardiac: regular Pulmonary: Breath sounds decreased and distant, but appear to be throughout. Pt has difficulty with deep breathing, which is limited by pain. No wheezes or rales appreciated. Posterior chest dressing contains old bloody drainage, but is not leaking outside the borders. Abd: Soft and mildly distended. +BS. Ext: Mild LE edema. No calf tenderness. Assessment/Plan Assessment/Plan Pt is an 81 yo F with a hx of htn, hld, copd, gerd, and breast CA who is now POD #2 s/p R upper lobe wedge resection. CT was removed yesterday. Plan: -f/u cxr this am. if stable, pt can be downgraded. -pt is still having pain, so will continue shell assembler for now, but if itching continues , we may need to change to a different po option. -encourage incentive spirometer. suspect atelectasis is most likely source of low grade temps. -SC heparin and alps for DVT ppx. -Pepcid for gerd. -OOB/ambulate. -plan for dressing change of surgical site later today or tomorrow. Core Measures/Miscellaneous Venous Thromboembolism VTE Risk Factors: Surgery VTE Contraindications: No Contraindications VTE Diagnosis: No VTE Type: NONE VTE Confirmed by (Test): NONE Beta Pam Is Beta Pam a Home Med? Yes If Yes, Was This Ordered Today? Yes Antibiotics Is Patient on Antibiotics? No
--- NOTE | 2017-03-14 08:28 | RADIOLOGY REPORT ---
EXAMINATION: XR PORTABLE CHEST CLINICAL INFORMATION: Chest tube removal 616 at 1300 hours. Status post right lung wedge resection. COMPARISON: Several prior chest x-rays, most recent of which is dated 03/13/2017. T scan of the chest dated 03/13/2017. TECHNIQUE: Portable AP erect view of the chest was obtained. FINDINGS: The cardiac mediastinal silhouette appears larger than on the prior exam, perhaps related to differences in technique. There is masslike fullness seen in the left hilar region, most likely accentuated by technique of exam and related to distortion of normal anatomy due to the patient's prior left upper lobe resection. There is superimposed patchy parenchymal opacity in the remaining left mid and lower lung, more prominent than on prior exam, most likely related to technique differences and overlapping soft tissues, though underlying airspace disease is difficult to exclude. In the right mid lung, at site of prior right lung wedge resection, patchy parenchymal opacity is again seen, most likely representing post operative changes/hemorrhage and surrounding atelectasis, slightly worsened when compared to prior exam. There is also increased parenchymal opacity medially in the right lung base, obscuring the heart border, consistent with atelectasis. No significant pleural effusion is seen. No pneumothorax is present. Bony structures are unremarkable. IMPRESSION: 1. No evidence of pneumothorax. 2. Postoperative changes in the right midlung with likely associated increasing atelectatic changes in the right perihilar and right lower paracardiac regions. 3. Increasing opacity in left mid and lower lung, perhaps related to technique versus atelectasis.
--- NOTE | 2017-03-14 10:28 | PN- Resident CRCU ---
Subjective HPI/CRCU Issues: Temp of 100.5 overnight. Afebrile now, saturating well on 2 L of oxygen. Hemodynamically stable. Chest tube was removed yestera. No acute overnight events reported. Still complaining of right-sided chest pain with deep inspiration but denies any other current active complaints. Objective Vital Signs & I&O Last 8 Hrs of Vitals and I&O: Intake & Output 03/14 1600 Intake Total Output Total Balance Patient 71.753 kg Weight Exam General Appearance: well developed/nourished, no apparent distress, alert, awake , comfortable Head: atraumatic, normal appearance Respiratory: no respiratory distress, ddiminished air entry on the right side, clear air entry on the left side Cardiovascular: regular rate/rhythm Gastrointestinal: soft, non-tender Extremities: normal inspection, trace LE edema Current Medications: Current Medications Sig/Juaquin Start time Last Medication Dose Route Stop Time Status Admin Acetaminophen 650 MG ONCE ONE 03/13 2115 DC 03/13 PO 03/13 2116 211 Albuterol Sulfate 3 ML EVERY 4 HRS/AWAKE 03/14 1600 AC 03/14 INH 1205 Albuterol Sulfate 3 ML Q4 03/12 2200 DC 03/14 INH 0801 Anastrozole 1 MG DAILY 03/13 1000 AC 03/14 PO 0941 Budesonide/ 2 PUF BID 03/12 2200 AC 03/14 Formoterol Fumarate INH 0941 Calcium Carbonate 500 MG DAILY 03/14 1000 AC 03/14 PO 0515 Diphenhydramine HCl 25 MG Q6P PRN 03/14 0530 AC 03/14 IV 0522 Ezetimibe 10 MG DAILY 03/13 1000 AC 03/14 PO 0941 Famotidine 20 MG ONCE ONE 03/14 0515 CAN PO 03/14 0516 Famotidine 20 MG DAILY 03/13 1000 AC 03/14 PO 0942 Heparin Sodium 5,000 UNIT Q8 03/12 2200 AC 03/14 (Porcine) SC 0503 Lisinopril 10 MG 1700 03/12 1930 AC 03/13 PO 1751 Magnesium Sulfate 1 GM Q2H 03/14 0645 DC 03/14 Dextrose/Water 100 ML IV 03/14 1044 0920 Morphine Sulfate 100 MG Q24H PRN 03/12 1545 AC Sodium Chloride 48 ML IV Nebivolol 5 MG DAILY 03/13 1000 AC 03/14 PO 0946 Ondansetron HCl 4 MG Q6P PRN 03/12 1930 AC 03/14 IV 1043 Tiotropium [place] 1 PUF DAILY 03/13 1000 AC 03/14 INH 0941 Impression/Plan Impression/Problem List Impression: 81/F S/P right thoracotomy with upper lobe wedge resection POD#1. Saturating well on 2 L of oxygen, he reported pain being well controlled, just you in place. Physical Exam looks normal. #Lung cancer Post right thoracotomy * She ambulated yesterday. * Chest tube was removed yesterday * X-ray shows no pneumothorax increased atelectasis and increasing opacity perhaps related to technique * Mild fever most likely due to atelectasis, which was shown on the x-ray.(No leukocytosis or cough) * Continue current pain management * Encourage incentive spirometer as possible * As per surgery dressing change later today or tomorrow * We will follow rn hedis recommendations #Hypertension, GERD, and dyslipidemia * On Nebivolol and lisinopril (hold both given the low blood pressure) * On Ezetimibe for dyslipidemia. 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 Lung cancer Pain Ratin (increase with deep breathing ) Tomorrow's Labs & Rationales: CBC and BEP Plan DVT/Prophylaxis: mechanical
--- NOTE | 2017-03-14 10:51 | PN- CRCU ---
Subjective HPI/Critical Care Issues: pt seen and examined chest tubes removed doing well left mid and lower lung atelectasis requires incentive spirometry aggressively oob Objective Current Medications: Current Medications Sig/Juaquin Start time Last Medication Dose Route Stop Time Status Admin Acetaminophen 650 MG ONCE ONE 03/13 2115 DC 03/13 PO 03/13 Albuterol Sulfate 3 ML Q4 03/12 2200 AC 03/14 INH 0801 Anastrozole 1 MG DAILY 03/13 1000 AC 03/14 PO 0941 Budesonide/ 2 PUF BID 03/12 2200 AC 03/14 Formoterol Fumarate INH 0941 Calcium Carbonate 500 MG DAILY 03/14 1000 AC 03/14 PO 0515 Dextrose/Sodium 1,000 ML .[id number] 03/12 1930 DC 03/13 Chloride IV 0906 Diphenhydramine HCl 25 MG Q6P PRN 03/14 0530 AC 03/14 IV 0522 Ezetimibe 10 MG DAILY 03/13 1000 AC 03/14 PO 0941 Famotidine 20 MG ONCE ONE 03/14 0515 CAN PO 03/14 0516 Famotidine 20 MG DAILY 03/13 1000 AC 03/14 PO 0942 Heparin Sodium 5,000 UNIT Q8 03/12 2200 AC 03/14 (Porcine) SC 0503 Lisinopril 10 MG 1700 03/12 1930 AC 03/13 PO 1751 Magnesium Sulfate 1 GM Q2H 03/14 0645 DC 03/14 Dextrose/Water 100 ML IV 03/14 1044 0920 Morphine Sulfate 100 MG Q24H PRN 03/12 1545 AC Sodium Chloride 48 ML IV Nebivolol 5 MG DAILY 03/13 1000 AC 03/14 PO 0946 Ondansetron HCl 4 MG Q6P PRN 03/12 1930 AC 03/14 IV 1043 Tiotropium [place] 1 PUF DAILY 03/13 1000 AC 03/14 INH 0941 Vital Signs & I&O Last 24 Hrs of Vitals and I&O: Vital Signs Date Time Temp Pulse Resp B/P B/P Pulse O2 O2 Flow FiO2 Mean Ox Delivery Rate 03/14 0946 80 110/52 03/14 0825 92 Nasal 2.0L Cannula 03/14 0600 97.5 70 15 138/62 03/14 0400 97.5 70 19 132/87 03/14 0400 97.5 70 19 132/87 03/14 0400 95 Nasal 2.0L Cannula 03/14 0053 99.8 03/14 0035 99 Nasal 2.0L Cannula 03/14 0000 99.8 69 13 110/58 03/14 0000 99.8 69 13 110/58 03/14 0000 98 Nasal 2.0L Cannula 03/13 2359 99.8 69 13 110/58 98 Nasal 2.0L Cannula 03/13 2200 100.5 69 26 100/50 03/13 2116 100.5 03/13 2000 99.4 75 22 130/78 03/13 2000 99.4 75 22 130/78 03/13 2000 94 Nasal 2.0L Cannula 03/13 1646 97 Nasal 2.0L Cannula 03/13 1600 134/59 03/13 1600 97.3 60 25 134/59 03/13 1600 97.3 69 25 139/80 100 Nasal 2.0L Cannula 03/13 1600 100 Nasal 2.0L Cannula 03/13 1400 72 24 102/43 03/13 1400 72 24 120/43 03/13 1210 94 Nasal 2.0L Cannula 03/13 1200 97.8 74 19 122/60 03/13 1200 97.8 74 19 122/60 03/13 1200 96 Nasal 2.0L Cannula Intake & Output 03/14 1600 03/14 0800 03/14 0000 Intake Total 450 415 Output Total 210 380 Balance 240 35 Intake, IV 40 Intake, Oral 450 375 Output, Urine 210 380 Patient 158 lb Weight Exam Other Physical Findings: gen awake and alert heent ncat cvs s1, s2 lungs rare rhonchi abd soft bs+ ext without edema Results Last 24 Hrs of Lab Results: Laboratory Tests 03/14/17 0420: Anion Gap 12, Estimated GFR > 60, Glucose 116 H, Calcium 9.3, Phosphorus 2.8, Magnesium 1.5 L, Total Bilirubin 0.7, AST 37 H, ALT 33, Albumin 3.8, CBC w Diff NO MAN DIFF REQ, RBC 4.07 L, MCV 93.0, MCH 30.4, RDW 13.8, MPV 9.1, Gran % 77.3 H, Lymphocytes % 13.0 L, Monocytes % 8.7, Eosinophils % 0.6, Basophils % 0.4, Absolute Granulocytes 7.2 H, Absolute Lymphocytes 1.2, Absolute Monocytes 0.8 H, Absolute Eosinophils 0.1, Absolute Basophils 0, PUBS MCHC 32.7 L 03/14/17 0400: Urine Color YEL, Urine Clarity CLEAR, Urine pH 6.0, Ur Specific [place] 1.010, Urine Protein NEG, Urine Ketones NEG, Urine Nitrite NEG, Urine Bilirubin NEG, Urine Urobilinogen 0.2, Ur Leukocyte Esterase SMALL H, Ur Microscopic SEDIMENT EXAMINED, Urine RBC RARE, Urine WBC 3-5 H, Ur Epithelial Cells MOD H, Urine Bacteria FEW H, Urine Hemoglobin NEG, Urine Glucose NEG 03/14/17 0400: Ur Random Creatinine 93.8, Ur Random Sodium 80, Ur Random Potassium 22.1, Fraction Sodium Excret 0.3 Impression/Plan Impression/Plan Impression/Plan: Impression 81 year old woman * RUL wedge resection with a medisatinal LN dissection. * History of resection history of the left upper lobe performed by Dr. Obando 2013. Plan -aggressive IST at least 10 times daily -oob -f/u surgical plan -pain control -f/u final pathology -TRC DVT prophylaxis at all times TTS 35 min
--- NOTE | 2017-03-14 17:51 | NUR ---
1650 PATIENT ARRIVED TO FLOOR ALERT AND ORIENTED X 3. ON 2L O2 VIA NC. SHORTNESS OF BREATH NOTED DIMINISHED LUNG BASES. VITAL SIGNS STABLE. DENIES CHEST PAIN. + PULSES DENIES NUMBNESS/TINGLING. PT TAUGHT HOW TO USE FLAT SCREEN WORKER PUMP BED LOW AND LOCKED. CALL LIGHT WITHIN REACH. AX1 W/RW. USES BSC. DSGS ARE C/D/I PATIENT COMFORTABLE AT THIS TIME. WILL CONTINUE TO MONITOR
[2017-03-15] VITALS: BP 110/60
[2017-03-15 06:44] VITALS: BP 100/60
[2017-03-15 08:20] LABS: ABSOLUTE BASOPHIL COUNT 0 /CUMM (0.0-0.2); ABSOLUTE EOSINOPHIL COUNT 0.2 /CUMM (0.0-0.7); ABSOLUTE GRANULOCYTE CT 5.2 /CUMM (1.4-6.5); ABSOLUTE LYMPH COUNT 0.9 /CUMM (1.2-3.4); BASOPHIL % 0.3 % (0.0-2.0); EOSINOPHIL % 2.9 % (0-5); GRANULOCYTE % 71.1 % (42.2-75.2); HEMATOCRIT 34.4 % (37-47); MEAN CORPUSCULAR HGB 30.6 PG (27.0-31.0); MEAN CORPUSCULAR VOLUME 92.9 FL (81.0-99.0); MEAN PLATELET VOLUME 8.7 FL (7.4-10.4); PLATELET COUNT 241 /CUMM (130-400); RBC DISTRIBUTION WIDTH 13.8 % (11.5-14.5); RED BLOOD CELL CT 3.71 /CUMM (4.20-5.40); WHITE BLOOD CELL COUNT 7.3 /CUMM (4.8-10.8)
--- NOTE | 2017-03-15 09:30 | PN- Thoracic Surgery ---
Subjective Subjective: Pt feels much better today. She was able to ambulate with PT without difficulty. Pain is reasonably controlled with the INSIDE FINISHER and she is tolerating po. No nausea or vomiting. +flatus. No BM as of yet. She is open to trial of po pain meds today. Also requesting stool softeners. Objective Vital Signs and I&Os Vital Signs Date Time Temp Pulse Resp B/P B/P Pulse O2 O2 Flow FiO2 Mean Ox Delivery Rate 03/15 0744 92 Nasal 2.0L Cannula 03/15 0644 98.7 69 20 100/60 92 Nasal 2.0L Cannula 03/15 0000 Nasal 2.0L Cannula 03/15 0000 98.3 77 20 110/60 03/14 2348 98.3 77 20 110/60 93 Nasal 2.0L Cannula 03/14 2022 97.9 71 20 121/66 91 Nasal 2.0L Cannula 03/14 2000 71 20 121/66 03/14 1900 97.5 73 22 110/75 03/14 1805 70 112/80 03/14 1650 Nasal 2.0L Cannula 03/14 1650 97.5 73 22 110/75 03/14 1650 97.5 73 22 110/75 03/14 1650 97.5 73 22 110/75 90 Nasal 2.0L Cannula 03/14 1619 94 Nasal 2.0L Cannula 03/14 1400 76 22 137/60 03/14 1200 98.5 82 26 100/52 03/14 1200 98.5 82 26 100/52 03/14 1000 78 24 124/54 03/14 0946 80 110/52 Intake & Output 03/15 1600 03/15 0800 03/15 0000 03/14 1600 03/14 0800 03/14 0000 Intake Total 80 230 702 450 415 Output Total 1300 1100 210 380 Balance 80 -1070 -398 240 35 Intake, IV 80 80 162 40 Intake, Oral 150 540 450 375 Number 0 Bowel Movements Output, Urine 1300 1100 210 380 Patient 158 lb Weight Physical Exam: General: Pt is awake and alert, sitting in the chair. NAD. Cardiac: regular Pulmonary: decrease breath sounds at the R base. Otherwise cta throughout. No wheezes or rales appreciated. Ext: There is an area of firmness and bulging in the Left medial antecubital fossa, near an old IV site. No redness or tenderness. No LE edema or calf tenderness appreciated. Assessment/Plan Assessment/Plan Pt is an 81 yo F who is now POD #3 s/p R upper lobe wedge resection. CT was removed on POD #1 and she was transferred out of the ICU on POD #2. She remains stable from a surgical standpoint, but is still requiring O2 vial nasal cannula. Plan: -Will attempt pain control with po percocet. If she tolerates, we will stop the INSIDE FINISHER and continue oral pain meds. -Will add bowel regimen. -Sodium slightly improved. Continue fluid restriction as per medicine recommendations. -Heparin SC and alps for DVT ppx. Continue to encourage ambulation with assistance. -Continue O2 via NC. Wean as tolerated, although trial on RA today (with ambulation) resulted in desat to 84%, so she is not quite ready for weaning. -Will f/u cxr. -Anticipate dc in 1-2 days. Core Measures/Miscellaneous Venous Thromboembolism VTE Risk Factors: Surgery VTE Contraindications: No Contraindications VTE Diagnosis: No VTE Type: NONE VTE Confirmed by (Test): NONE Beta Pam Is Beta Pam a Home Med? Yes If Yes, Was This Ordered Today? Yes Antibiotics Is Patient on Antibiotics? No
--- NOTE | 2017-03-15 10:28 | RADIOLOGY REPORT ---
EXAMINATION: XR PORTABLE CHEST CLINICAL INFORMATION: Status post wedge resection and chest tube removal. Follow-up. COMPARISON: Several prior chest x-rays, most recent of which is dated 03/14/2017. TECHNIQUE: Portable AP semierect view of the chest was obtained. FINDINGS: The cardiac mediastinal silhouette is within normal limits in size. Mild ectasia and calcification of the aorta is again seen. The patient is status post right lung wedge resection. There is improvement in the bilateral perihilar and lower lobe parenchymal opacities. No significant pleural effusion is noted. No pneumothorax is seen. Bony structures are unremarkable. IMPRESSION: 1. Improving bilateral lung parenchymal opacities status post right lung wedge resection. 2. No pneumothorax.
--- NOTE | 2017-03-15 12:00 | PN- Pulmonary ---
Subjective HPI/Critical Care Issues: pt seen and examined saturating well on 2LNC afebrile hyponatremia improved with fluid restriction able to ambulate downgraded from icu Objective Current Medications: Current Medications Sig/Juaquin Start time Last Medication Dose Route Stop Time Status Admin Albuterol Sulfate 3 ML EVERY 4 HRS/AWAKE 03/14 1600 AC 03/15 INH 1139 Albuterol Sulfate 3 ML Q4 03/12 2200 DC 03/14 INH 0801 Anastrozole 1 MG DAILY 03/13 1000 AC 03/15 PO 1017 Budesonide/ 2 PUF BID 03/12 2200 AC 03/15 Formoterol Fumarate INH 1023 Calcium Carbonate 500 MG DAILY 03/14 1000 AC 03/14 PO 0515 Diphenhydramine HCl 25 MG Q6P PRN 03/14 0530 AC 03/14 IV 0522 Docusate Sodium 100 MG BID 03/15 1000 AC 03/15 PO 1018 Ezetimibe 10 MG DAILY 03/13 1000 AC 03/15 PO 1012 Famotidine 20 MG DAILY 03/13 1000 AC 03/15 PO 1012 Heparin Sodium 5,000 UNIT Q8 03/12 2200 AC 03/15 (Porcine) SC 0600 Lisinopril 10 MG 1700 03/12 1930 AC 03/14 PO 1805 Magnesium Hydroxide 30 ML ONE ONE 03/15 0930 DC 03/15 PO 03/15 0931 1012 Morphine Sulfate 100 MG Q24H PRN 03/12 1545 DC Sodium Chloride 48 ML IV 03/15 1100 Nebivolol 5 MG DAILY 03/13 1000 AC 03/14 PO 0946 Ondansetron HCl 4 MG Q6P PRN 03/12 1930 AC 03/14 IV 1043 Oxycodone/ 1 TAB Q4P PRN 03/15 1300 AC Acetaminophen PO Oxycodone/ 2 TAB Q4P PRN 03/15 1300 AC Acetaminophen PO Oxycodone/ 2 TAB ONCE ONE 03/15 0930 DC 03/15 Acetaminophen PO 03/15 0931 1013 Tiotropium [place] 1 PUF DAILY 03/13 1000 AC 03/15 INH 1012 Vital Signs & I&O Last 24 Hrs of Vitals and I&O: Vital Signs Date Time Temp Pulse Resp B/P B/P Pulse O2 O2 Flow FiO2 Mean Ox Delivery Rate 03/15 1017 74 100/48 03/15 0744 92 Nasal 2.0L Cannula 03/15 0644 98.7 69 20 100/60 92 Nasal 2.0L Cannula 03/15 0000 Nasal 2.0L Cannula 03/15 0000 98.3 77 20 110/60 03/14 2348 98.3 77 20 110/60 93 Nasal 2.0L Cannula 03/142 97.9 71 20 121/66 91 Nasal 2.0L Cannula 03/14 2000 71 20 121/66 03/14 1900 97.5 73 22 110/75 03/14 1805 70 112/80 03/14 1650 Nasal 2.0L Cannula 03/14 1650 97.5 73 22 110/75 03/14 1650 97.5 73 22 110/75 03/14 1650 97.5 73 22 110/75 90 Nasal 2.0L Cannula 03/14 1619 94 Nasal 2.0L Cannula 03/14 1400 76 22 137/60 03/14 1200 98.5 82 26 100/52 03/14 1200 98.5 82 26 100/52 Intake & Output 03/15 1600 03/15 0800 03/15 0000 Intake Total 80 230 Output Total 1300 Balance 80 -1070 Intake, IV 80 80 Intake, Oral 150 Output, Urine 1300 Exam Other Physical Findings: gen awake and alert heent ncat, on nc cvs s1, s2 lungs ctab, slightly diminished on right, dressing intact abd soft bs+ ext without edema Results Last 24 Hrs of Lab Results: Laboratory Tests 03/15/17 0650: Anion Gap 5, Estimated GFR > 60, BUN/Creatinine Ratio 10.0, Magnesium 1.7, CBC w Diff NO MAN DIFF REQ, RBC 3.71 L, MCV 92.9, MCH 30.6, RDW 13.8, MPV 8.7, Gran % 71.1, Lymphocytes % 12.4 L, Monocytes % 13.3 H, Eosinophils % 2.9, Basophils % 0.3, Absolute Granulocytes 5.2, Absolute Lymphocytes 0.9 L, Absolute Monocytes 1.0 H, Absolute Eosinophils 0.2, Absolute Basophils 0, PUBS MCHC 33.0 Impression/Plan Impression/Plan Impression/Plan: Impression 81 year old woman * RUL wedge resection with a medisatinal LN dissection. * History of resection history of the left upper lobe performed by Dr. Obando 2013. * hyponatremia, improving, likely SIADH Plan -aggressive IST at least 10 times daily -oob -f/u surgical plan -pain control -f/u final pathology -TRC -fluid restriction Check room air sats including on exertion to determine discharge planning and o2 needs anticipate dc within 24-48 hrs DVT prophylaxis at all times TTS 35 min
[2017-03-15 13:52] VITALS: BP 106/50
--- NOTE | 2017-03-15 20:52 | NUR ---
PT AMBULATED TODAY WITHOUT OXYGEN, O2 SAT WAS 84%, PT DENIES FEELING SOB. OXYGEN WAS PLACED BACK ON PATIENT, 2L NC.
[2017-03-15 22:41] VITALS: BP 128/62
[2017-03-16 05:36] VITALS: BP 118/70
[2017-03-16] MEDS ORDERED: PERCOCET 5-3251 EACH PO (06:40)
--- NOTE | 2017-03-16 06:44 | Patient Discharge Instructions ---
Discharge Instructions General Discharge Information You were seen/treated for: Lung mass You had these procedures: Right upper lobe wedge resection Watch for these problems: Fever greater than 101, redness, drainage, difficulty breathing and increasing chest pain Do not soak the wound: Yes No bath, but you may shower: Yes Other wound care: You may shower as desired, with dressings in place. Leave Steri-Strips in place. Replace all dressings to shower or once daily. Special Instructions: a urinary tract infection was noted, please take the bactrim DS 2x per day for 5 days to treat the infection. Follow up with your doctor if there are any continued symptoms of urinary frequency, burning or pain Diet Continue normal diet: Yes Recommended Diet: Heart Healthy Activity Full Activity/No Limits: No Activity Self Limited: Yes Pounds, do NOT lift more than: 5 Other activity limits: No strenuous activity. Avoid heavy lifting, pushing, or pulling. No driving while using narcotics. Acute Coronary Syndrome Inclusion Criteria At DC or during hospital stay patient has or had the following: ACS DIAGNOSIS No Discharge Core Measures Meds if any: Prescribed or Continued at Discharge Meds if any: NOT Prescribed or Continued at Discharge Congestive Heart Failure Inclusion Criteria At DC or during hospital stay patient has or had the following: CHF DIAGNOSIS No Discharge Core Measures Meds if any: Prescribed or Continued at Discharge Meds if any: NOT Prescribed or Continued at Discharge Cerebrovascular accident Inclusion Criteria At DC or during hospital stay patient has or had the following: CVA/TIA Diagnosis No Discharge Core Measures Meds if any: Prescribed or Continued at Discharge Meds if any: NOT Prescribed or Continued at Discharge Venous thromboembolism Inclusion Criteria VTE Diagnosis No VTE Type NONE VTE Confirmed by (Test) NONE Discharge Core Measures - Per Current guidelines, there needs to be overlap - treatment for the first 5 days of Warfarin therapy. - If discharged on Warfarin prior to 5 days of - overlap therapy, the patient will need to be - assessed for post discharge needs including - *Post discharge parental anticoagulation - *Warfarin and/or parental anticoagulation education - *Follow up date to check INR post discharge At least 5 days overlap therapy as Inpatient No Meds if any: Prescribed or Continued at Discharge Note: Overlap Therapy is Warfarin and Anticoagulant Meds if any: NOT Prescribed or Continued at Discharge
--- NOTE | 2017-03-16 06:49 | Surgical Discharge Summary ---
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 Home Who Do You Live With? Spouse Services at Home: None What is Your Primary Language? Irish ETOH Use: daily one glass Review of Systems: See H&P Hospital Course Course Attending Physician: LAMINE THURMAN,ARNEL Calhoun JR Primary Care Physician: JIM GONZALEZ MD Hospital Course: Is an 81-year-old female who presented to [facility] on 03/12/2017 for planned right upper lobe wedge resection with mediastinal lymph node biopsy for right lung mass. She tolerated the procedure well and was transferred to the ICU in stable condition postoperatively. Her chest tube was placed to waterseal on postoperative day #1, which she tolerated well, without signs of pneumothorax. It was subsequently removed on postoperative day #1. She was transferred to the general medical floor on postoperative day #2, where she was mobilized. Pain was well-controlled, oxygen was weaned down, and patient was subsequently cleared for discharge. Allergies: Coded Allergies: ciprofloxacin (From CIPRO) (? 03/11/17) hydromorphone (UNKNOWN 03/12/17) ragweed pollen (UNKNOWN 03/13/17) Significant Procedures: None 03/12/2017 right upper lobe wedge resection with mediastinal lymph node biopsy Disposition Summary Disposition Principal Diagnosis: Right lung mass Additional Diagnosis: same Discharge Disposition: home health services Discharge Instructions General Discharge Information Code Status: Full Code Patient's Diet: Regular Patient's Activity: Avoid strenuous activity or heavy lifting, pushing, or pulling. No driving while using narcotics. Follow-Up Instructions/Appts: Follow up with Dr. Obando later this week. Dry dressing change once daily. You may shower as desired with the dressings in place and replace them after your shower. Medications at Discharge Discharge Medications: Continue taking these medications: Pitavastatin Calcium (Livalo) 4 MG TABLET DAILY Comments: NOT GIVEN IN HOSPITAL Lisinopril (Lisinopril) 10 MG TABLET 1 Tablet ORAL NIGHTLY Comments: Last Taken: 03/14/17 Time: 1800PM Anastrozole (Anastrozole) 1 MG TABLET 1 Tablet ORAL DAILY Comments: Last Taken: 03/17/17 Time: 0930AM Ezetimibe (Zetia) 10 MG TABLET 1 Tablet ORAL NIGHTLY Comments: Last Taken: 03/17/17 Time: 0930AM Fluticasone/Salmeterol (Advair 250-50 Diskus) 250 MCG-50 MCG/DOSE BLST.W.DEV 1 Puff Inhale through mouth TWICE DAILY Comments: NOT GIVEN IN HOSPITAL SYMBICORT GIVEN 03/17/17 @ 0930AM Tiotropium [place] (Spiriva) 18 MCG CAP.W.DEV 1 Capsule Inhale through mouth DAILY Comments: Last Taken: 03/17/17 Time: 0930AM Nebivolol HCl (Bystolic) 5 MG TABLET 1 Tablet ORAL DAILY Comments: Last Taken: 03/17/17 Time: 0930AM Famotidine (Pepcid) 20 MG TABLET 1 Tablet ORAL DAILY as needed for GERD Comments: Last Taken: 03/17/17 Time: 0930AM Aspirin (Ecotrin*) 81 MG TABLET.DR 1 Tablet ORAL DAILY Comments: NOT GIVEN IN HOSPITAL Start taking the following new medications: Oxycodone HCl (Oxycodone HCl) 5 MG TABLET 5 Milligram ORAL EVERY SIX HOURS as needed for PAIN Qty = 30 No Refills Comments: Last Taken: 03/17/17 Time: 0945AM Sulfamethoxazole/Trimethoprim (Bactrim Ds Tablet) 800 MG-160 MG TABLET 1 Tablet ORAL TWICE DAILY Qty = 10 No Refills Comments: NOT GIVEN IN HOSPITAL
--- NOTE | 2017-03-16 07:51 | PN- Thoracic Surgery ---
Subjective Subjective: No acute overnight events reported. Pain is controlled with percocet. No reports of shortness of breath, chest pain or difficulty breathing. No nausea or vomitting. Has been passing flatus and voiding without difficutly, no bowel movement. Has been oob ambulating. Is anticipating discharge possibly today. Objective Vital Signs and I&Os Vital Signs Date Time Temp Pulse Resp B/P B/P Pulse O2 O2 Flow FiO2 Mean Ox Delivery Rate 03/16 0536 98.4 84 20 118/70 97 Nasal 2.0L Cannula 03/16 0000 95 Nasal 2.0L Cannula 03/15 2241 99.3 78 20 128/62 93 Nasal Cannula 03/15 1627 83 Room Air Room Air 03/15 1352 97.1 72 18 106/50 94 Room Air 03/15 1017 74 100/48 03/15 0800 93 Nasal 2.0L Cannula Intake & Output 03/16 0800 03/16 0000 18 1600 18 0800 03/15 0000 03/14 1600 Intake Total 100 200 800 80 230 702 Output Total 1300 1100 Balance 100 200 800 80 -1070 -398 Intake, IV 80 80 162 Intake, Oral 100 200 800 150 540 Number 0 Bowel Movements Output, Urine 1300 1100 Patient 158 lb Weight Physical Exam: General: Alert and oriented x3, no acute distress Cardiac: RRR, s1s2 Pulm: L CTA, R crackles at base Abdomen: Soft, non-tender Extremities: Moves all extremities, distal sensation intact. Left ac iv site infiltrated, iv has been dc'd, pulses distal to site palpable, no hand swelling, no swelling,warmth, or redness proximally. Bilateral lower extremities calves soft and non-tender Surgical site: Dressing dry and intact Assessment/Plan Assessment/Plan Pt is an 81 yo F who is now POD #4 s/p R upper lobe wedge resection. CT was removed on POD #1 and she was transferred out of the ICU on POD #2. She remains stable from a surgical standpoint, but is still requiring O2 vial nasal cannula. Plan: -Continue pain control with po percocet -Warm compresses to LUE iv site -Continuie bowel regimen. -Sodium slightly improved yesterday. Continue fluid restriction as per medicine recommendations. -Heparin SC and alps for DVT ppx. Continue to encourage ambulation with assistance. -Continue O2 via NC. Wean as tolerated. -Plan for discharge today vs tomorrow -WIll d/w Dr. Obando Core Measures/Miscellaneous Venous Thromboembolism VTE Risk Factors: Surgery VTE Contraindications: No Contraindications VTE Diagnosis: No VTE Type: NONE VTE Confirmed by (Test): NONE Beta Pam Is Beta Pam a Home Med? Yes If Yes, Was This Ordered Today? Yes Antibiotics Is Patient on Antibiotics? No
--- NOTE | 2017-03-16 09:05 | PN- Pulmonary ---
Subjective HPI/Critical Care Issues: pt seen and examined pain controlled sodium improved on o2 Objective Current Medications: Current Medications Sig/Juaquin Start time Last Medication Dose Route Stop Time Status Admin Albuterol Sulfate 3 ML EVERY 4 HRS/AWAKE 03/14 1600 AC 03/16 INH 0749 Anastrozole 1 MG DAILY 03/13 1000 AC 03/15 PO 1017 Budesonide/ 2 PUF BID 03/12 2200 AC 03/15 Formoterol Fumarate INH 2238 Calcium Carbonate 500 MG DAILY 03/14 1000 AC 03/14 PO 0515 Diphenhydramine HCl 25 MG Q6P PRN 03/14 0530 AC 03/14 IV 0522 Docusate Sodium 100 MG BID 03/15 1000 AC 03/15 PO 2239 Ezetimibe 10 MG DAILY 03/13 1000 AC 03/15 PO 1012 Famotidine 20 MG DAILY 03/13 1000 AC 03/15 PO 1012 Heparin Sodium 5,000 UNIT Q8 03/12 2200 AC 03/16 (Porcine) SC 0441 Lisinopril 10 MG 1700 03/12 1930 AC 03/14 PO 1805 Magnesium Hydroxide 30 ML ONE ONE 03/15 0930 DC 03/15 PO 03/15 0931 1012 Morphine Sulfate 100 MG Q24H PRN 03/12 1545 DC Sodium Chloride 48 ML IV 03/15 1100 Nebivolol 5 MG DAILY 03/13 1000 AC 03/14 PO 0946 Ondansetron HCl 4 MG Q6P PRN 03/12 1930 AC 03/14 IV 1043 Oxycodone/ 1 TAB Q4P PRN 03/15 1300 AC 03/16 Acetaminophen PO 0441 Oxycodone/ 2 TAB Q4P PRN 03/15 1300 AC Acetaminophen PO Oxycodone/ 2 TAB ONCE ONE 03/15 0930 DC 03/15 Acetaminophen PO 03/15 0931 1013 Tiotropium [place] 1 PUF DAILY 03/13 1000 AC 03/15 INH 1012 Vital Signs & I&O Last 24 Hrs of Vitals and I&O: Vital Signs Date Time Temp Pulse Resp B/P B/P Pulse O2 O2 Flow FiO2 Mean Ox Delivery Rate 03/16 0803 94 Nasal 2.0L Cannula 03/16 0536 98.4 84 20 118/70 97 Nasal 2.0L Cannula 03/16 0000 95 Nasal 2.0L Cannula 03/15 2241 99.3 78 20 128/62 93 Nasal Cannula 03/15 1627 83 Room Air Room Air 03/15 1352 97.1 72 18 106/50 94 Room Air 03/15 1017 74 100/48 Intake & Output 03/16 1600 03/16 0800 03/16 0000 Intake Total 100 200 Output Total Balance 100 200 Intake, Oral 100 200 Exam Other Physical Findings: gen awake and alert heent ncat, on nc cvs s1, s2 lungs ctab, slightly diminished on right, dressing intact abd soft bs+ ext without edema Results Last 24 Hrs of Lab Results: Laboratory Tests 03/16/17 0726: Anion Gap 7, Estimated GFR > 60, BUN/Creatinine Ratio 15.7, Magnesium 1.7 Impression/Plan Impression/Plan Impression/Plan: Impression 81 year old woman * RUL wedge resection with a medisatinal LN dissection. * History of resection history of the left upper lobe performed by Dr. Obando 2013. * hyponatremia, improving, likely SIADH Plan -aggressive IST at least 10 times daily -oob -f/u surgical plan -pain control -f/u final pathology -TRC -fluid restriction Check room air sats including on exertion to determine discharge planning and o2 needs anticipate dc within 24 hrs DVT prophylaxis at all times Resume home inhalers upon dc
[2017-03-16 14:33] VITALS: BP 102/58
--- NOTE | 2017-03-16 18:39 | NUR ---
DURING AMBULATION PATIENT DESATED TO 83% ON RA. PATIENT DENIED ANY SOB. PT SATING 94% ON 2L OF .
[2017-03-16 23:04] VITALS: BP 100/54
[2017-03-17 06:30] VITALS: BP 147/54
[2017-03-17 08:12] LABS: ABSOLUTE BASOPHIL COUNT 0 /CUMM (0.0-0.2); ABSOLUTE EOSINOPHIL COUNT 0.3 /CUMM (0.0-0.7); ABSOLUTE GRANULOCYTE CT 4.1 /CUMM (1.4-6.5); ABSOLUTE MONOCYTE COUNT 0.8 /CUMM (0.10-0.60); BASOPHIL % 0.5 % (0.0-2.0); EOSINOPHIL % 5.4 % (0-5); GRANULOCYTE % 65.4 % (42.2-75.2); HEMATOCRIT 33.1 % (37-47); MEAN CORPUSCULAR HGB 30.4 PG (27.0-31.0); MEAN CORPUSCULAR HGB CONC 32.6 G/DL (33.0-37.0); MEAN CORPUSCULAR VOLUME 93.2 FL (81.0-99.0); MEAN PLATELET VOLUME 8.9 FL (7.4-10.4); PLATELET COUNT 280 /CUMM (130-400); RBC DISTRIBUTION WIDTH 13.5 % (11.5-14.5); RED BLOOD CELL CT 3.55 /CUMM (4.20-5.40); WHITE BLOOD CELL COUNT 6.3 /CUMM (4.8-10.8)
--- NOTE | 2017-03-17 08:40 | PN- Pulmonary ---
Subjective HPI/Critical Care Issues: Patient feels well without complaints and is anticipating discharge Objective Current Medications: Current Medications Sig/Juaquin Start time Last Medication Dose Route Stop Time Status Admin Acetaminophen 650 MG Q6P PRN 03/16 1200 AC 03/17 PO 0544 Albuterol Sulfate 3 ML EVERY 4 HRS/AWAKE 03/14 1600 AC 03/16 INH 2059 Anastrozole 1 MG DAILY 03/13 1000 AC 03/16 PO 0916 Budesonide/ 2 PUF BID 03/12 2200 AC 03/16 Formoterol Fumarate INH 2101 Calcium Carbonate 500 MG DAILY 03/14 1000 AC 03/14 PO 0515 Diphenhydramine HCl 25 MG Q6P PRN 03/14 0530 AC 03/14 IV 0522 Docusate Sodium 100 MG BID 03/15 1000 AC 03/16 PO 2100 Ezetimibe 10 MG DAILY 03/13 1000 AC 03/16 PO 0911 Famotidine 20 MG DAILY 03/13 1000 AC 03/16 PO 0911 Heparin Sodium 5,000 UNIT Q8 03/12 2200 AC 03/17 (Porcine) SC 0541 Lisinopril 10 MG 1700 03/12 1930 AC 03/14 PO 1805 Nebivolol 5 MG DAILY 03/13 1000 AC 03/14 PO 0946 Ondansetron HCl 4 MG Q6P PRN 03/12 1930 AC 03/14 IV 1043 Oxycodone HCl 5 MG Q6 PRN 03/16 1200 AC 03/17 PO 0231 Oxycodone/ 1 TAB Q4P PRN 03/15 1300 DC 03/16 Acetaminophen PO 0441 Oxycodone/ 2 TAB Q4P PRN 03/15 1300 DC Acetaminophen PO Tiotropium [place] 1 PUF DAILY 03/13 1000 AC 03/16 INH 0916 Vital Signs & I&O Last 24 Hrs of Vitals and I&O: Vital Signs Date Time Temp Pulse Resp B/P B/P Pulse O2 O2 Flow FiO2 Mean Ox Delivery Rate 03/17 0630 97.5 75 20 147/54 98 Nasal 2.0L Cannula 03/17 0000 Nasal 2.0L Cannula 03/16 2304 98.7 80 20 100/54 95 Nasal 2.0L Cannula 03/16 1642 96 Room Air Room Air 03/16 1540 102/58 03/16 1433 98.5 75 20 102/58 92 Nasal 2.0L Cannula 03/16 0915 110/58 Intake & Output 03/17 1600 03/17 0800 03/17 0000 Intake Total 480 480 Output Total 700 Balance -220 480 Intake, Oral 480 480 Output, Urine 700 Oxygen saturation 2 L 98% she appears to have been 96% on room air exam for chest shows somewhat diminished breath sounds are no wheezes cardiac exam shows regular S1 and S2 without murmurs Impression/Plan Impression/Plan Impression/Plan: 81-year-old status post resectional lung surgery has improved respiratory status. Recommendations: Assess room air saturation at rest and exertion to determine need for oxygen at discharge. Outpatient follow-up with Dr. Garcia. Continue baseline bronchodilator medications
[2017-03-17 09:37] VITALS: BP 140/70
--- NOTE | 2017-03-17 10:37 | PN- Thoracic Surgery ---
Subjective Subjective: No complaints, pain is controlled. No fever no shortness of breath, no cough or flulike illness Objective Vital Signs and I&Os Vital Signs Date Time Temp Pulse Resp B/P B/P Pulse O2 O2 Flow FiO2 Mean Ox Delivery Rate 03/17 0952 91 Room Air 03/17 0950 96 Nasal 2.0L Cannula 03/17 0937 83 140/70 03/17 0848 93 Nasal 2.0L Cannula 03/17 0845 93 Nasal 2.0L Cannula 03/17 0800 93 Nasal 2.0L Cannula 03/17 0630 97.5 75 20 147/54 98 Nasal 2.0L Cannula 03/17 0000 Nasal 2.0L Cannula 03/16 2304 98.7 80 20 100/54 95 Nasal 2.0L Cannula 03/16 1642 96 Room Air Room Air 03/16 1540 102/58 03/16 1433 98.5 75 20 102/58 92 Nasal 2.0L Cannula Intake & Output 03/17 1600 03/17 0800 03/17 0000 03/16 1600 03/16 0800 03/16 0000 Intake Total 480 480 650 100 200 Output Total 700 Balance -220 480 650 100 200 Intake, Oral 480 480 650 100 200 Output, Urine 700 Results Last 48 Hours of Labs: Laboratory Tests 03/17 03/16 0622 0726 Chemistry Sodium (137 - 145 mmol/L) 132 L 131 L Potassium (3.5 - 5.1 mmol/L) 4.4 4.4 Chloride (98 - 107 mmol/L) 94 L 94 L Carbon Dioxide (22 - 30 mmol/L) 30 31 H Anion Gap (5 - 16) 8 7 BUN (7 - 17 mg/dL) 10 11 Creatinine (0.5 - 1.0 mg/dL) 0.6 0.7 Estimated GFR (>60 ml/min) > 60 > 60 BUN/Creatinine Ratio (7 - 25 %) 16.7 15.7 Magnesium (1.6 - 2.3 mg/dL) 1.7 Hematology CBC w Diff NO MAN DIFF REQ WBC (4.8 - 10.8 /CUMM) 6.3 RBC (4.20 - 5.40 /CUMM) 3.55 L Hgb (12.0 - 16.0 G/DL) 10.8 L Hct (37 - 47 %) 33.1 L MCV (81.0 - 99.0 FL) 93.2 MCH (27.0 - 31.0 PG) 30.4 RDW (11.5 - 14.5 %) 13.5 Plt Count (130 - 400 /CUMM) 280 MPV (7.4 - 10.4 FL) 8.9 Gran % (42.2 - 75.2 %) 65.4 Lymphocytes % (20.5 - 51.1 %) 16.4 L Monocytes % (1.7 - 9.3 %) 12.3 H Eosinophils % (0 - 5 %) 5.4 H Basophils % (0.0 - 2.0 %) 0.5 Absolute Granulocytes (1.4 - 6.5 /CUMM) 4.1 Absolute Lymphocytes (1.2 - 3.4 /CUMM) 1.0 L Absolute Monocytes (0.10 - 0.60 /CUMM) 0.8 H Absolute Eosinophils (0.0 - 0.7 /CUMM) 0.3 Absolute Basophils (0.0 - 0.2 /CUMM) 0 PUBS MCHC (33.0 - 37.0 G/DL) 32.6 L Core Measures/Miscellaneous Venous Thromboembolism VTE Risk Factors: Surgery VTE Contraindications: No Contraindications VTE Diagnosis: No VTE Type: NONE VTE Confirmed by (Test): NONE Beta Pam Is Beta Pam a Home Med? Yes If Yes, Was This Ordered Today? Yes Antibiotics Is Patient on Antibiotics? No
--- NOTE | 2017-03-17 10:39 | PN- Thoracic Surgery ---
See Addendum Subjective Subjective: No complaints, she is feeling well, she denies shortness of breath cough fever or flulike illness. Objective Vital Signs and I&Os Vital Signs Date Time Temp Pulse Resp B/P B/P Pulse O2 O2 Flow FiO2 Mean Ox Delivery Rate 03/17 0952 91 Room Air 03/17 0950 96 Nasal 2.0L Cannula 03/17 0937 83 140/70 03/17 0848 93 Nasal 2.0L Cannula 03/17 0845 93 Nasal 2.0L Cannula 03/17 0800 93 Nasal 2.0L Cannula 03/17 0630 97.5 75 20 147/54 98 Nasal 2.0L Cannula 03/17 0000 Nasal 2.0L Cannula 03/16 2304 98.7 80 20 100/54 95 Nasal 2.0L Cannula 03/16 1642 96 Room Air Room Air 03/16 1540 102/58 03/16 1433 98.5 75 20 102/58 92 Nasal 2.0L Cannula Intake & Output 03/17 1600 / 0800 / 0000 / 1600 03/16 0800 03/16 0000 Intake Total 480 480 650 100 200 Output Total 700 Balance -220 480 650 100 200 Intake, Oral 480 480 650 100 200 Output, Urine 700 Physical Exam: General: Alert and oriented x3, no acute distress Cardiac: RRR, s1s2 Pulm: L CTA, R crackles at base Extremities: Left ac iv site induration improved Bilateral lower extremities calves soft and non-tender Surgical site: Dressing dry and intact Assessment/Plan Assessment/Plan Pt is an 81 yo F who is now POD #5 s/p R upper lobe wedge resection. CT was removed on POD #1 and she was transferred out of the ICU on POD #2 and has been doing well, continuing to wean her off oxygen. Plan: -Continue pain control with po percocet -Continuie bowel regimen. -Sodium is improving, Continue fluid restriction as per medicine recommendations. -Heparin SC and alps for DVT ppx. Continue to encourage ambulation with assistance. -Continue O2 via NC. Wean as tolerated. Obtained saturations at rest on and off oxygen as well as at exertion on and off oxygen. If below 88%, she will require home O2 -Plan for discharge today -d/w Dr. Obando Core Measures/Miscellaneous Venous Thromboembolism VTE Risk Factors: Surgery VTE Contraindications: No Contraindications VTE Diagnosis: No VTE Type: NONE VTE Confirmed by (Test): NONE Beta Pam Is Beta Pam a Home Med? Yes If Yes, Was This Ordered Today? Yes Antibiotics Is Patient on Antibiotics? No
--- NOTE | 2017-03-17 10:53 | NUR ---
PATIENT 87% ON RA AT REST; ON 2L O2 VIA NV PATIENT'S O2 SATUREATION INCREASED TO 93%; WHILE AMBULATION PATIENT DESATURATED TO 82% ON RA AND INCREASED TO 88% ON 2L NC AND 94% ON 3L NC; PATIENT AMBULATED TO BACK TO ROOM ON 3L O2 VIA NC; CALL REYES AND NEEDS WITHIN REACH; SAFETY MAINTAINED;
[2017-03-17] MEDS ORDERED: BACTRIM DS TAB1 EACH PO (11:20)
[2017-03-17] MEDS ORDERED: OXYCODONE HCL5 M1 PO (11:20)
== END 2017-03-17 12:08 | disposition home health service (06) | DRG 164 ==
LOC: CRI 03:55 → SDA 03:55 → ENRESERV 17:21 → ENTRNSPT 17:24 → CMPTRNSPT 18:03 → CRI 18:14 → 2NB 03-14 16:36 → ENPENDDIS 03-17 11:34 → 2NB 03-17 12:08
PROVIDERS: Nurse Practitioner; Physician Assistant; Physician Assistant Surgical; ADMIT Thoracic Surgery (Cardiothoracic Vascular Surgery)
PROC: 0BTC0ZZ Resection of Right Upper Lung Lobe, Open Approach (ICD-10-PCS; principal; 2017-03-12)
PROC: 07B70ZX Excision of Thorax Lymphatic, Open Approach, Diagnostic (ICD-10-PCS; 2017-03-12)
DX: C34.11 Malignant neoplasm of upper lobe, right bronchus or lung (principal); E22.2 Syndrome of inappropriate secretion of antidiuretic hormone; J44.9 Chronic obstructive pulmonary disease, unspecified; J98.11 Atelectasis; Z87.891 Personal history of nicotine dependence; I25.10 Atherosclerotic heart disease of native coronary artery without angina pectoris; I10 Essential (primary) hypertension; E78.5 Hyperlipidemia, unspecified; K21.9 Gastro-esophageal reflux disease without esophagitis; M54.30 Sciatica, unspecified side; Z85.3 Personal history of malignant neoplasm of breast; Z85.51 Personal history of malignant neoplasm of bladder; Z95.5 Presence of coronary angioplasty implant and graft; Z92.3 Personal history of irradiation; E78.00 Pure hypercholesterolemia, unspecified
CPT/HCPCS: 2NBP; 84133; 84300; CCU; 36415; 81001; 82436; 82570; 87040; 87086; 93005; 93010; 97116-GO; 97161-GP; 97530-GO; C9290; C9399; J0131; J0690; J1100; J1200; J1644; J2175; J2405; J3490; J7040; J7042

== ENCOUNTER → 2018-03-05 | Day surgery (SDC) | payer OTHER, MEDICARE ==
[~2018-03-05] VITALS: Ht 160 cm; Wt 61.2 kg
[~2018-03-05] MED LIST changes: +BACTRIM DS TAB1 EACH PO; +CALCIUM + VITA1 EAC1 PO; +DEXILANT30 M1 PO; -LIVALO4 M1; +LIVALO4 M1 PO; +MULTIVITAMINS1 EAC9 PO; +OXYCODONE HCL5 M1 PO; +PERCOCET 5-3251 EACH PO
[2018-03-05 06:37] LABS: ABSOLUTE BASOPHIL COUNT 0 /CUMM (0.0-0.2); ABSOLUTE EOSINOPHIL COUNT 0.1 /CUMM (0.0-0.7); ABSOLUTE GRANULOCYTE CT 5.1 /CUMM (1.4-6.5); ABSOLUTE LYMPH COUNT 0.6 /CUMM (1.2-3.4); ABSOLUTE MONOCYTE COUNT 0.7 /CUMM (0.10-0.60); BASOPHIL % 0.1 % (0.0-2.0); EOSINOPHIL % 1.1 % (0-5); GRANULOCYTE % 78.6 % (42.2-75.2); HEMATOCRIT 40.4 % (37-47); MEAN CORPUSCULAR HGB 27.7 PG (27.0-31.0); MEAN CORPUSCULAR HGB CONC 32.8 G/DL (33.0-37.0); MEAN CORPUSCULAR VOLUME 84.6 FL (81.0-99.0); MEAN PLATELET VOLUME 6.6 FL (7.4-10.4); PLATELET COUNT 624 /CUMM (130-400); RBC DISTRIBUTION WIDTH 14.6 % (11.5-14.5); RED BLOOD CELL CT 4.77 /CUMM (4.20-5.40); WHITE BLOOD CELL COUNT 6.5 /CUMM (4.8-10.8)
--- NOTE | 2018-03-05 09:33 | Operative Report ---
Operative/Inv Procedure Report Surgery Date: 03/05/18 Name of Procedure: Navigational bronchoscopy with fine-needle aspirate brushing bronchoalveolar lavage and forceps biopsies Pre-Operative Diagnosis: Right upper lobe lung mass Post-Operative Diagnosis: Same Estimated Blood Loss: none Surgeon/Dietary Manager: MD Gisella Whalen Jr., MD,Abhilash Mendoza Anesthesia: general endotracheal tube Operative/Procedure Note Note: After placement of monitoring lines and induction of general anesthesia survey bronchoscopy was done. The endobronchial anatomy and mucosa appeared normal except for the posterior segment of the right upper lobe which had what appeared to be an obstructed bronchus and narrowing of the anterior segmental bronchus. The navigational system was then registered and the guider catheter was advanced to the right upper lobe. With navigational guidance the guider catheter was pointed at the post bronchial mass and away from the pulmonary artery. Fine-needle aspirate was done through the bronchial wall and intraoperative rapid analysis showed atypical cells consistent with non-small cell carcinoma. Further larger bore needle specimens were taken and the needle brush was passed. Bronchoalveolar lavage fluid was sent for cytology and direct forceps biopsies were taken at the mucosa in that area. There was no bleeding. The airway was clear. The patient tolerated procedure well and was brought to the recovery room in stable condition. CC: Justine THURMAN,Vinnie Garcia; Radha THURMAN,Thomas
--- NOTE | 2018-03-05 10:02 | RADIOLOGY REPORT ---
EXAMINATION: XR PORTABLE CHEST CLINICAL INFORMATION: Status post navigational bronchoscopy, in PACU. COMPARISON: Multiple priors, most recent is a chest CT dated 02/04/2018. TECHNIQUE: Portable frontal view of the chest was obtained. FINDINGS: The lungs are hypoexpanded. There is volume loss and heterogeneous haziness in the right lung. Redemonstration of right hilar mass. Small amount of pleural fluid layering over the apex. Streaky left basilar opacities likely representing atelectasis. No discernible pneumothorax. Heart size within normal limits for technique. Aortic atherosclerosis. Surgical clips project over the left axilla. Osseous detail is limited. IMPRESSION: Haziness in the right lung most likely related to underaeration. Redemonstration of right hilar mass. Small amount of right layering pleural fluid. Left retrocardiac atelectasis.
== END ==
LOC: STS 01:45
PROVIDERS: Thoracic Surgery (Cardiothoracic Vascular Surgery)
DX: C34.11 Malignant neoplasm of upper lobe, right bronchus or lung (principal); Z85.118 Personal history of other malignant neoplasm of bronchus and lung; Z85.51 Personal history of malignant neoplasm of bladder; Z87.891 Personal history of nicotine dependence; J44.9 Chronic obstructive pulmonary disease, unspecified; Z85.3 Personal history of malignant neoplasm of breast; I25.10 Atherosclerotic heart disease of native coronary artery without angina pectoris; Z95.5 Presence of coronary angioplasty implant and graft; Z79.82 Long term (current) use of aspirin
CPT/HCPCS: 36415; 71045; 88305; 93005; 93010; J1100; J2250; J2405

== ENCOUNTER 2018-06-02 06:48 | Inpatient (IN) | payer OTHER ==
[~2018-06-02] VITALS: Ht 160 cm; Wt 54.1 kg
--- NOTE | 2018-06-02 07:15 | ED CARDIAC/CP/PALPITATIONS ---
History of Present Illness General Chief Complaint: Dyspnea (COPD, CHF, Other) Stated Complaint: BIBA SOB Source: patient Exam Limitations: no limitations Vital Signs & Intake/Output Vital Signs & Intake/Output Vital Signs Date Time Temp Pulse Resp B/P B/P Pulse O2 O2 Flow FiO2 Mean Ox Delivery Rate 06/02 0849 97.6 70 20 131/59 94 Nasal 3.0L Cannula 06/02 652 97.9 70 18 188/75 93 Nasal 3.0L Cannula Allergies Coded Allergies: ciprofloxacin (From CIPRO) (SWOLLEN FACE 03/03/18) hydromorphone (nausea 03/02/18) ragweed pollen (UNKNOWN 03/02/18) Reconcile Medications Anastrozole 1 MG TABLET 1 TAB PO DAILY BREAST CANCER (Reported) Aspirin (Ecotrin*) 81 MG TABLET.DR 1 TAB PO DAILY PROPHO (Reported) Calcium (Elemental-Fr Calcarb) (Calcium Carbonate) 600 MG CALCIUM (1,500 MG) TABLET 1 TAB PO DAILY SUPPLEMENT (Reported) Cholecalciferol (Vitamin D3) 1,000 UNIT TABLET 1 TAB PO DAILY VITAMIN SUPPORT (Reported) Cyanocobalamin (Vitamin B-12) (B-12 Dots) 500 MCG TABLET 1 TAB PO Q48 VITAMIN SUPPORT (Reported) Dexlansoprazole (Dexilant) 30 MG CAP.BP 1 CAP PO DAILY GI (Reported) Ezetimibe (Zetia) 10 MG TABLET 1 TAB PO NIGHTLY CHOLESTEROL (Reported) Fluticasone/Salmeterol (Advair 250-50 Diskus) 250 MCG-50 MCG/DOSE BLST.W.DEV 1 PUF INH BID COPD (Reported) Multiple Vitamin (Multivitamins) 1 EACH TABLET 1 TAB PO DAILY SUPPLEMENT ( Reported) Nebivolol HCl (Bystolic) 5 MG TABLET 1 TAB PO DAILY HTN (Reported) Pitavastatin Calcium (Livalo) 4 MG TABLET 1 TAB PO DAILY CHOLESTEROL ( Reported) Tiotropium [place] (Spiriva) 18 MCG CAP.W.DEV 1 CAP INH DAILY COPD (Reported) Ubidecarenone (Coq-10) 100 MG CAPSULE 1 CAP PO Q48 SUPPLEMENT (Reported) Triage Note: PT BIBA FROM HOME C/O OF INTERMITTENT SOB FOR THE PAST 10 DAYS. PT WAS RECENTLY SEEN AT [facility] FOR THE SAME. PT HAS HX OF LUNG CA, RECENTLY BEGAN CHEMO AND RADIATION WITH DR MARIE. PT ARRIVED ON 2L NC AT 92%, 02 INCREASED TO 3L AT 94% 02, HX OF COPD. PT IS A&0X3. PTS AT BEDSIDE. PT PLACED ON MONITOR. BP 188/75. 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 Triage Nurses Notes Reviewed? yes HPI: 82-year-old female with past medical history of lung cancer status post wedge resection of lung presents with 10 days of intermittent shortness of breath. Due to start chemo and radiation later on today. On 2 L nasal cannula at home. Shortness breath is exacerbated with exertion and anxiety for the upcoming treatment. Denies fever chills cough chest pain nausea vomiting constipation or diarrhea. Negative for orthopnea. Positive for chronic cough negative for sputum production. Past History Travel History Traveled to [place] past 21 day No Medical History Any Pertinent Medical History? see below for history Neurological: NONE EENT: NONE Cardiovascular: CAD, hypertension, hyperlipidemia Respiratory: COPD Gastrointestinal: GERD Hepatic: NONE Renal: NONE Musculoskeletal: sciatica Psychiatric: NONE Endocrine: NONE Blood Disorders: NONE Cancer(s): bladder cancer, breast cancer, lung cancer CALL OR CONTACT CENTRE COACH/Reproductive: NONE History of MRSA: No History of VRE: No History of CDIFF: No Surgical History Surgical History: , lumpectomy, cystourethroscopy,partial mastectomy, angioplasty, PTCA in 2002,bladder tumor removal Psychosocial History Who do you live with Spouse Services at Home None What is your primary language Yi Tobacco Use: Quit >30 days ago Family History Hx Contributory? No Review of Systems Review of Systems Constitutional: Reports: no symptoms. Denies: chills, fever. EENTM: Reports: no symptoms. Respiratory: Reports: no symptoms, cough, short of breath, wheezing. Cardiovascular: Reports: no symptoms. GI: Reports: no symptoms. Genitourinary: Reports: no symptoms. Musculoskeletal: Reports: no symptoms. Skin: Reports: no symptoms. Neurological/Psychological: Reports: no symptoms. Hematologic/Endocrine: Reports: no symptoms. Immunologic/Allergic: Reports: no symptoms. All Other Systems: Reviewed and Negative Physical Exam Physical Exam General Appearance: no apparent distress, comfortable Head: atraumatic, normal appearance Ears, Nose, Throat: normal pharynx, normal ENT inspection Neck: No JVD. Respiratory: Decreased breath sounds right. Cardiovascular: regular rate/rhythm, normal peripheral pulses Extremities: no edema Core Measures ACS in differential dx? No CVA/TIA Diagnosis No Sepsis Present: No Sepsis Focused Exam Completed? No Progress Differential Diagnosis: CHF/pulm edema, pneumonia, COPD, anxiety Plan of Care: Orders Procedure Date/time Status Nothing by Mouth 06/[address] in observation 06/02 952 Active ED Holding Orders 06/02 952 Active Telemetry/Wireless Consultant 06/02 952 Active Code Status 06/02 952 Active Patient Data 06/02 938 Active TROPONIN LEVEL 06/02 658 Complete PARTIAL THROMBOPLASTIN TIME 06/02 658 Complete PROTHROMBIN TIME 06/02 658 Complete LIPASE 06/02 658 Complete HEPATIC FUNCTION PANEL 06/02 658 Complete D-DIMER 06/02 658 Complete CBC WITHOUT DIFFERENTIAL 06/02 658 Complete BASIC METABOLIC PANEL 06/02 658 Complete AMYLASE 06/02 658 Complete EKG 06/02 658 Active Laboratory Tests 06/02/18 0735: Anion Gap 9, Estimated GFR > 60, BUN/Creatinine Ratio 22.5, Glucose 110 H, Calcium 9.4, Total Bilirubin 0.4, Direct Bilirubin 0.3, AST 21, ALT 29, Alkaline Phosphatase 86, Troponin I < 0.01, Total Protein 5.9 L, Albumin 3.1 L, Amylase < 30 L, Lipase 28, PT 12.7 H, INR 1.16, APTT 37, D-Dimer High Sensitivty 259 H, CBC w Diff NO MAN DIFF REQ, RBC 4.69, MCV 78.5 L, MCH 25.3 L, MCHC 32.3 L, RDW 15.9 H, MPV 7.6, Gran % 91.0 H, Lymphocytes % 3.5 L, Monocytes % 4.6, Eosinophils % 0.9, Basophils % 0, Absolute Granulocytes 6.5, Absolute Lymphocytes 0.2 L, Absolute Monocytes 0.3, Absolute Eosinophils 0.1, Absolute Basophils 0 Initial ED EKG: normal axis, normal QRS complex, t-wave inversion V2, negative for interval changes from prior. No STEMI. Departure Departure Disposition: STILL A PATIENT Condition: Stable Clinical Impression Primary Impression: Shortness of breath at rest Secondary Impressions: Pleural effusion Referrals: Brionna THURMAN,Jay Mendoza (PCP/Family) Departure Forms: Customer Survey General Discharge Information Critical Care Note Critical Care Note Critical Care Time: non-applicable
--- NOTE | 2018-06-02 07:44 | RADIOLOGY REPORT ---
EXAMINATION: XR PORTABLE CHEST CLINICAL INFORMATION: Shortness of breath COMPARISON: Chest x-ray and CTA chest 05/21/2018 TECHNIQUE: Portable frontal view of the chest was obtained. FINDINGS: Worsened, large right pleural effusion with minimal remaining aeration of the right upper lobe. Left lung is well-expanded and clear. Cardiomediastinal silhouette is largely obscured by the right pleural effusion. Similarly, the known right perihilar mass is not well seen superimposed on the background of right pleural effusion and right lung atelectasis. IMPRESSION: Worsened, large right pleural effusion with atelectasis/collapse of much of the right lung, with minimal remaining aeration of the right upper lobe. Known right hilar mass is largely obscured.
[2018-06-02 07:57] LABS: ABSOLUTE BASOPHIL COUNT 0 /CUMM (0.0-0.2); ABSOLUTE EOSINOPHIL COUNT 0.1 /CUMM (0.0-0.7); ABSOLUTE GRANULOCYTE CT 6.5 /CUMM (1.4-6.5); ABSOLUTE LYMPH COUNT 0.2 /CUMM (1.2-3.4); ABSOLUTE MONOCYTE COUNT 0.3 /CUMM (0.10-0.60); BASOPHIL % 0 % (0.0-2.0); EOSINOPHIL % 0.9 % (0-5); HEMATOCRIT 36.8 % (37-47); MEAN CORPUSCULAR HGB 25.3 PG (27.0-31.0); MEAN CORPUSCULAR HGB CONC 32.3 G/DL (33.0-37.0); MEAN CORPUSCULAR VOLUME 78.5 FL (81.0-99.0); MEAN PLATELET VOLUME 7.6 FL (7.4-10.4); RBC DISTRIBUTION WIDTH 15.9 % (11.5-14.5); RED BLOOD CELL CT 4.69 /CUMM (4.20-5.40); WHITE BLOOD CELL COUNT 7.1 /CUMM (4.8-10.8)
[2018-06-02] MEDS ORDERED: COQ-10100 MG PO (08:08)
[2018-06-02] MEDS ORDERED: B-12 DOTS500 MCG PO (08:09)
[2018-06-02] MEDS ORDERED: VITAMIN D31000 UNI2 PO (08:10)
[2018-06-02] MEDS ORDERED: CALCIUM CARBON600 M1 PO (08:11)
[2018-06-02 08:16] LABS: PLATELET COUNT 638 /CUMM (130-400)
[2018-06-02 08:24] LABS: PT 12.7 SEC (9.4-12.5); PTT 37 SEC (25-37)
--- NOTE | 2018-06-02 10:07 | History & Physical ---
Jalen Warner MD 06/02/18 1007: General Information and HPI History of Present Illness: 82-year-old woman with past medical history of lung adenocarcinoma status post wedge resection/chemotherapy/radiation, history of breast cancer on anastrozole, history of bladder cancer, coronary artery disease, hypertension, hyperlipidemia , COPD, and GERD seen for evaluation of shortness of breath. Patient was previously seen in the [place] ED on 05/21/18 for evaluation of shortness of breath where a CTA chest was obtained that ruled out pulmonary embolism but did identify a moderate sized right-sided pleural effusion for which she was sent home on home oxygen. Since this time patient's symptoms of shortness of breath and now fatigue have been worsening. She otherwise admits to decreased intake of food and water that she attributes to her multiple medical comorbidities including her cancer. Patient was reportedly supposed to start another round of chemotherapy with her oncologist Dr. Fletcher today. Review of systems She otherwise denies any headache, fever, chills, vision changes, lightheadedness, chest pain, palpitations, heartburn, cough, nausea, vomiting, diarrhea, constipation, abdominal pain. Objective Vitals-temperature 97.6-97.9, HR 70, RR 18-20, BP 131-188/59-75, SPO2 93-94% on 3.0 L via nasal Physical exam -General: No thin elderly woman in no acute distress -HEENT: NCAT, [place], EOMI, anicteric sclera, moist mucous membranes -Neck: Supple, no JVD, trachea midline, no accessory respiratory muscle use -Cardio: Normal S1/S2 without murmurs/gallops/rubs; regular rate and rhythm -Pulmonary: Clear to auscultation on left side, absence of air movement on right side -Abdomen: Soft, nontender, nondistended, bowel sounds intact -Neuro: Awake and alert, cranial nerves II through XII grossly intact -Extremities: Trace bilateral pedal edema, normal pulses Diagnostics -CBC: WBC 7.1, hemoglobin 11.9, hematocrit 36.8, platelet 638 -BMP: Sodium 132, potassium 4.4, chloride 91, CO2 32, BUN 9, creatinine 0.4, anion gap 9, glucose 110 -LFT: Within normal limits -Miscellaneous: Troponin I <0.01, amylase <30, lipase 28, INR 1.16, d-dimer 259 -EKG: Normal sinus rhythm without any ST-T wave segment changes -CXR: * Worsened, large right pleural effusion with atelectasis/collapse of much of the right lung, with minimal remaining aeration of the right upper lobe. Known right hilar mass is largely obscured. Assessment 82-year-old woman with multiple medical problems significant for known lung adenocarcinoma status post wedge resection/chemotherapy/radiation and multiple other independent cancers that were reportedly treated/in remission brought in by ambulance for evaluation of persistent shortness of breath with a new large right-sided pleural effusion. Patient's increased large right-sided pleural effusion is likely the etiology of her shortness of breath now requiring her to be on supplemental oxygen. Given her history of cancer is likely that the effusion is malignant. She will require an ultrasound-guided thoracentesis for which fluid will be drained; per the interventional radiologist reading of the film there is approximately 3 L of fluid for which he drain will be left in. Ultimately she may require placement of a Pleurx catheter should the effusion recurr. Patient is being placed under observation on the general medicine floor for pulmonology consult, cardiothoracic surgery consult, and post diagnostic/therapeutic thoracentesis care. Problem List -Shortness of breath with worsened large right-sided pleural effusion -History of lung adenocarcinoma status post wedge resection, chemo, and radiation -History of breast cancer, on anastrozole -History of bladder cancer -COPD -CAD -Hypertension -Hyperlipidemia Plan -Placed under observation on general medicine floor -Supplemental oxygen, goal >92%, taper as tolerated -Total respiratory care -Alprazolam 0.25 mg PO TID PRN Anxiety -Continue home meds: Anastrozole, calcium/vitamin D, B12, omeprazole, Zetia, Symbicort, multivitamin, nebivolol, atorvastatin, Spiriva -Consult with pulmonology for evaluation of pleural effusion/lung cancer -Consult with cardiothoracic surgery for evaluation of Pleurx catheter placement -Consult with oncology -Ultrasound-guided thoracentesis with drain placement, send fluid for cytology/ analysis -Follow-up pleural fluid labs -Pain control with acetaminophen -N.p.o., restart diet after thoracentesis -DVT prophylaxis with subcutaneous heparin -DNR/DNI Allergies/Medications Allergies: Coded Allergies: ciprofloxacin (From CIPRO) (SWOLLEN FACE 03/03/18) hydromorphone (nausea 03/02/18) ragweed pollen (UNKNOWN 03/02/18) Home Med list Anastrozole 1 MG TABLET 1 TAB PO DAILY BREAST CANCER (Reported) Aspirin (Ecotrin*) 81 MG TABLET. 1 TAB PO DAILY PROPHO (Reported) Calcium (Elemental-Fr Calcarb) (Calcium Carbonate) 600 MG CALCIUM (1,500 MG) TABLET 1 TAB PO DAILY SUPPLEMENT (Reported) Cholecalciferol (Vitamin D3) 1,000 UNIT TABLET 1 TAB PO DAILY VITAMIN SUPPORT (Reported) Cyanocobalamin (Vitamin B-12) (B-12 Dots) 500 MCG TABLET 1 TAB PO Q48 VITAMIN SUPPORT (Reported) Dexlansoprazole (Dexilant) 30 MG KATHERINE.BP 1 CAP PO DAILY GI (Reported) Ezetimibe (Zetia) 10 MG TABLET 1 TAB PO NIGHTLY CHOLESTEROL (Reported) Fluticasone/Salmeterol (Advair 250-50 Diskus) 250 MCG-50 MCG/DOSE BLST.W.DEV 1 PUF INH BID COPD (Reported) Multiple Vitamin (Multivitamins) 1 EACH TABLET 1 TAB PO DAILY SUPPLEMENT ( Reported) Nebivolol HCl (Bystolic) 5 MG TABLET 1 TAB PO DAILY HTN (Reported) Pitavastatin Calcium (Livalo) 4 MG TABLET 1 TAB PO DAILY CHOLESTEROL ( Reported) Tiotropium [place] (Spiriva) 18 MCG CAP.W.DEV 1 CAP INH DAILY COPD (Reported) Ubidecarenone (Coq-10) 100 MG CAPSULE 1 CAP PO Q48 SUPPLEMENT (Reported) Past History Travel History Traveled to [place] past 21 day No Medical History Neurological: NONE EENT: NONE Cardiovascular: CAD, hypertension, hyperlipidemia Respiratory: COPD Gastrointestinal: GERD Hepatic: NONE Renal: NONE Musculoskeletal: sciatica Psychiatric: NONE Endocrine: NONE Blood Disorders: NONE Cancer(s): bladder cancer, breast cancer, lung cancer 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 spouse Services at Home: None Functional Ability ADLs Independent: dressing, eating, toileting, bathing. Ambulation: independent IADLs Independent: shopping, housework, finances, food prep, telephone, transportation , medication admin. Review of Systems Review of Systems Constitutional: Reports: see HPI. Exam & Diagnostic Data Last 24 Hrs of Vital Signs/I&O Vital Signs Date Time Temp Pulse Resp B/P B/P Pulse O2 O2 Flow FiO2 Mean Ox Delivery Rate 06/02 1041 97.7 72 20 143/68 98 Nasal 3.0L Cannula 06/02 0849 97.6 70 20 131/59 94 Nasal 3.0L Cannula 06/02 0720 Nasal 2.0L Cannula 06/02 0652 97.9 70 18 188/75 93 Nasal 3.0L Cannula Intake & Output 06/02 1600 06/02 0800 06/02 0000 Intake Total Output Total Balance Patient 53.977 kg Weight Weight Reported by Patient Measurement Method Assessment/Plan As Ranked By This Provider Problem List: 1. Pleural effusion Core Measures/Misc (06/14) Acute Coronary Syndrome ACS Diagnosis: No Congestive Heart Failure Congestive Heart Failure Diagnosis No Cerebrovascular Accident CVA/TIA Diagnosis: No VTE (View Protocol) VTE Risk Factors Age>40 No Mechanical VTE Prophylaxis d/t N/A MechProphylax Ordered No VTE Pharm Prophylaxis d/t NA PharmProphylax ordered Sepsis (View protocol) Sepsis Present: No If YES complete Sepsis Event Note If YES complete Sepsis Event Note Wes Peñalucie 06/02/18 1606: Core Measures/Misc (06/14) Sepsis (View protocol) If YES complete Sepsis Event Note If YES complete Sepsis Event Note Attending MD Review Statement Attending Statement Attending MD Statement: examined this patient, discuss w/resident/PA/DESKTOP ARCHITECT, agreed w/resident/PA/DESKTOP ARCHITECT, discussed with family, reviewed EMR data (avail), discussed with nursing Attending Assessment/Plan: 82 yr old female with non small cell lung cancer s/p chemo, wedge resection right side, radiation who was seen recently in the ER on 05/21 for sob and was found to be hypoxic and was sent home on oxygen. Pt presented back to ER with worsening sob and was found to have worsening rt side pleural effusion. 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 Pt in ER had a pleural catheter placed on rt side and had 1 L fluid drained and the tube was clamped after that. Plan will be to repeat cxr and f/u on pleural studies and cytology. Appreciated pulm consult. dw/ pt and pts family at bedside the care plan.
--- NOTE | 2018-06-02 12:33 | Cons- Pulmonary ---
General Information and HPI Consulting Request Date of Consult: 06/02/18 Requested By: Dr. Peña Reason for Consult: pleural effusion Source of Information: patient Exam Limitations: no limitations History of Present Illness: Consultation for a large pleural effusion. 82-year-old woman history significant for stage III non-small cell lung carcinoma followed by Dr. Fletcher, Dr. Barrera, Dr. Obando and myself. She was treated with a lobectomy, carboplatin, taxol, radiation. Recent PET showed an avid right lung mass, pleural effusion and nodules. She has had a navigation bronchoscopy revealing non-small cell - adenocarcinoma. She was seen in the ER on 05/21 where an enlarging pleural effusion was noted and she required oxygen. She returns to the hospital with dyspnea and was found to have a significant increase in her pleural effusion. She underwent a thoracentesis with chest tube placement. 1Liter was removed. Pleural studies including cytology was sent off. The chest tube was clamped. She has a post thoracentesis cough and feels relief in her dyspnea. Allergies/Medications Allergies: Coded Allergies: ciprofloxacin (From CIPRO) (SWOLLEN FACE 03/03/18) hydromorphone (nausea 03/02/18) ragweed pollen (UNKNOWN 03/02/18) Home Med List: Anastrozole 1 MG TABLET 1 TAB PO DAILY BREAST CANCER (Reported) Aspirin (Ecotrin*) 81 MG TABLET.DR 1 TAB PO DAILY PROPHO (Reported) Calcium (Elemental-Fr Calcarb) (Calcium Carbonate) 600 MG CALCIUM (1,500 MG) TABLET 1 TAB PO DAILY SUPPLEMENT (Reported) Cholecalciferol (Vitamin D3) 1,000 UNIT TABLET 1 TAB PO DAILY VITAMIN SUPPORT (Reported) Cyanocobalamin (Vitamin B-12) (B-12 Dots) 500 MCG TABLET 1 TAB PO Q48 VITAMIN SUPPORT (Reported) Dexlansoprazole (Dexilant) 30 MG CAP.BP 1 CAP PO DAILY GI (Reported) Ezetimibe (Zetia) 10 MG TABLET 1 TAB PO NIGHTLY CHOLESTEROL (Reported) Fluticasone/Salmeterol (Advair 250-50 Diskus) 250 MCG-50 MCG/DOSE BLST.W.DEV 1 PUF INH BID COPD (Reported) Multiple Vitamin (Multivitamins) 1 EACH TABLET 1 TAB PO DAILY SUPPLEMENT ( Reported) Nebivolol HCl (Bystolic) 5 MG TABLET 1 TAB PO DAILY HTN (Reported) Pitavastatin Calcium (Livalo) 4 MG TABLET 1 TAB PO DAILY CHOLESTEROL ( Reported) Tiotropium [place] (Spiriva) 18 MCG CAP.W.DEV 1 CAP INH DAILY COPD (Reported) Ubidecarenone (Coq-10) 100 MG CAPSULE 1 CAP PO Q48 SUPPLEMENT (Reported) Current Medications: Current Medications Sig/Juaquin Start time Last Medication Dose Route Stop Time Status Admin Acetaminophen 650 MG Q6P PRN 06/02 1100 AC PO Alprazolam 0.25 MG TID PRN 06/02 1115 AC PO 06/09 1114 Anastrozole 1 MG DAILY 06/02 1136 AC PO Atorvastatin Calcium 10 MG 1700 06/02 1700 AC PO Budesonide/ 2 PUF BID 06/02 2100 AC Formoterol Fumarate INH Calcium/Vitamin D 500 MG DAILY 06/02 1137 AC PO Cyanocobalamin 1,000 MCG DAILY 06/02 1140 AC PO Ezetimibe 10 MG DAILY 06/02 1142 AC PO Heparin Sodium 5,000 UNIT Q8 06/02 1400 AC (Porcine) SC Multivitamins 1 TAB DAILY 06/02 1142 AC Therapeutic PO Nebivolol 5 MG DAILY 06/02 1142 AC PO Omeprazole 40 MG DAILY AC 06/02 1142 AC PO Tiotropium [place] 1 PUF DAILY 06/02 1143 AC INH Review of Systems Comments 18 pt ROS reviewed pertinent positives and negatives in HPI otherwise negative Past History Travel History Traveled to [place] past 21 day No Medical History Neurological: NONE EENT: NONE Cardiovascular: CAD, hypertension, hyperlipidemia Respiratory: COPD Gastrointestinal: GERD Hepatic: NONE Renal: NONE Musculoskeletal: sciatica Psychiatric: NONE Endocrine: NONE Blood Disorders: NONE Cancer(s): bladder cancer, breast cancer, lung cancer 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 spouse Services at Home: None Functional Ability ADLs Independent: dressing, eating, toileting, bathing. Ambulation: independent IADLs Independent: shopping, housework, finances, food prep, telephone, transportation , medication admin. Exam & Diagnostic Data Last 24 Hrs of Vital Signs/I&O Vital Signs Date Time Temp Pulse Resp B/P B/P Pulse O2 O2 Flow FiO2 Mean Ox Delivery Rate 06/02 1041 97.7 72 20 143/68 98 Nasal 3.0L Cannula 06/02 0849 97.6 70 20 131/59 94 Nasal 3.0L Cannula 06/02 0720 Nasal 2.0L Cannula 06/02 0652 97.9 70 18 188/75 93 Nasal 3.0L Cannula Intake & Output 06/02 1600 06/02 0800 06/02 0000 Intake Total Output Total Balance Patient 119 lb Weight Weight Reported by Patient Measurement Method Physical Exam Other Physical Findings: gen-[id number] heent-o2 cvs-s1,s2 lungs-diminished bs on right abd-soft,bs+ ext-without edema Last 48 Hrs of Labs/Roland: Laboratory Tests 06/02/18 0735: Anion Gap 9, Estimated GFR > 60, BUN/Creatinine Ratio 22.5, Glucose 110 H, Calcium 9.4, Total Bilirubin 0.4, Direct Bilirubin 0.3, AST 21, ALT 29, Alkaline Phosphatase 86, Troponin I < 0.01, Total Protein 5.9 L, Albumin 3.1 L, Amylase < 30 L, Lipase 28, PT 12.7 H, INR 1.16, APTT 37, D-Dimer High Sensitivty 259 H, CBC w Diff NO MAN DIFF REQ, RBC 4.69, MCV 78.5 L, MCH 25.3 L, MCHC 32.3 L, RDW 15.9 H, MPV 7.6, Gran % 91.0 H, Lymphocytes % 3.5 L, Monocytes % 4.6, Eosinophils % 0.9, Basophils % 0, Absolute Granulocytes 6.5, Absolute Lymphocytes 0.2 L, Absolute Monocytes 0.3, Absolute Eosinophils 0.1, Absolute Basophils 0 Assessment/Plan Impression/Plan: Impression 82 year old woman * large pleural effusion in the setting of non-small cell lung cancer * COPD Plan -s/p thoracentesis with insertion of an indwelling pleural catheter - s/p 1L removal -keep chest tube clamped for now - check CXR in am to evaluate for re- accumulation of fluid -f/u all pleural studies including cytology -TRC/Nebs -continue inhalers -continue oxygen supplementation to goal fio2 >88% -please inform Dr. Fletcher of patient's admission DVT prophylaxis at all times Consult Acknowledgment - Thank you for your consult request.
--- NOTE | 2018-06-02 13:54 | RADIOLOGY REPORT ---
EXAMINATION:\H\ \N\XR CHEST CLINICAL INFORMATION: Status post right-sided chest tube placement. COMPARISON: Chest x-ray earlier today at 7:15 AM TECHNIQUE: Frontal view of the chest was obtained. FINDINGS: Interval placement of right-sided pigtail catheter. Improved aeration of the right hemithorax. A moderate amount of fluid persists at the right lung base in addition to some potentially loculated fluid within the lateral right apex. No pneumothorax present. IMPRESSION: Interval insertion of right-sided chest tube with improved aeration of the right hemithorax.
[2018-06-02 15:35] VITALS: BP 132/64
--- NOTE | 2018-06-02 16:05 | Admission Certification ---
Admission Certification Certification Statement - As attending physician, I certify that at the time of - admission, based on clinical presentation, severity of - symptoms, need for further diagnostic testing and - therapeutic interventions, and risk of adverse outcomes - without in-hospital treatment, in my clinical assessment, - this patient requires an acute hospital stay for a minimum - of two nights or longer. I have also considered psychsocial - factors such as support system, advanced age, financial - issues, cognitive issues, and failed out-patient treatments, - past re-admission history, safety of patient, and lack of - compliance as applicable. Specific rationale supporting this admission is: Rt side pleural effusion with hypoxia and sob
--- NOTE | 2018-06-02 16:35 | ULTRASOUND REPORT ---
PROCEDURE: Ultrasound-guided chest tube placement. INDICATION: 82-year-old female with enlarging right-sided pleural effusion and shortness of breath. ACCESS: 6 Fr. One-Step Needle COMPARISON: Same day chest x-ray and chest x-ray and CTA chest 05/21/2018 INTERVENTIONAL RADIOLOGIST: Jori Dunham MD CONSENT: Informed consent was obtained from the patient prior to the procedure. During this process, the procedure and potential alternatives were explained along with the intended outcome and benefits. The risks of the procedure, including the possibility of an unsuccessful procedure as well as the risk of not doing the procedure were discussed. The patient was given the opportunity to ask any questions regarding the procedure and appeared competent to make medical decisions. A signed consent form which documents this discussion was placed in the medical record. A timeout procedure was performed. HISTORY: The patient was referred for ultrasound-guided right chest tube placement. MEDICATIONS: 10ml 1% lidocaine. TECHNIQUE/FINDINGS: Appropriate pre-procedure medical history and imaging studies were reviewed. The patient was brought to the department and placed in the seated position. Ultrasound images of the right thorax were obtained to localize a large pleural effusion. The effusion contains numerous mobile echogenicity consistent with debris. Images were permanently saved to the record. An area of the patient's right back was prepped and draped in the standard sterile fashion. 10 mL of 1% lidocaine was used to obtain local anesthesia of the skin and deeper tissues. A standard small bore needle was introduced to sample fluid and demonstrated a safe access route. A 6 B[place] one step needle was then used to access the pleural cavity. A guidewire was then placed through the introducer into the chest. The access site was then sequentially dilated using dilators sized 8 Fr, 10 Fr and 12 Fr. A 12 Fr. nonlocking catheter was then advanced over the wire into the chest cavity. The wire was removed and the catheter was secured to the skin with a single suture and a sterile dressing was placed over the site. The catheter was then connected to a closed chest drainage system. The patient tolerated the procedure well without evidence of complications. IMPRESSION: Successful right ultrasound-guided chest tube placement. PLAN: 1. Postprocedure x-ray demonstrated improved aeration of the right hemithorax without pneumothorax. 2. Fluid sample obtained and sent for requested laboratory analysis. Pathology pending. 3. Approximately 1 L of light yellow ascites was drained into the atrium device. The tube was then clamped and further drainage will be managed by the primary team. 4. Sign out given to Thomas Garcia M.D. and Jalen Anderson M.D.
[2018-06-02 22:00] VITALS: BP 100/60
[2018-06-03 06:36] VITALS: BP 98/58
--- NOTE | 2018-06-03 06:41 | PN- Housestaff ---
Joo Smallwood 06/03/18 0641: Subjective Follow-up For: Right-sided pleural effusion Subjective: Patient seen and examined at bedside. She is complaining pain at the tube insertion site, constipation, shortness of breath. Overall she is feeling good. she denies fever, chills, chest pain, palpitation, abdominal pain, diarrhea, burning micturition. Review of Systems Constitutional: Reports: see HPI. Objective Last 24 Hrs of Vital Signs/I&O Vital Signs Date Time Temp Pulse Resp B/P B/P Pulse O2 O2 Flow FiO2 Mean Ox Delivery Rate 06/03 800 Nasal 3.0L Cannula 06/03 0757 97.5 90 20 98/58 06/03 0636 97.5 90 20 98/58 94 Nasal 3.0L Cannula 06/02 2353 91 Nasal 3.0L Cannula 06/02 2200 97.8 80 16 100/60 91 Nasal 3.0L Cannula 06/02 1928 Nasal 2.5L Cannula 06/02 1627 73 132/64 06/02 1535 97.6 73 18 132/64 95 05 1400 Nasal 3.0L Cannula Intake & Output 06/03 1600 06/03 0800 06/03 0000 Intake Total 260 250 Output Total Balance 260 250 Intake, IV 20 10 Intake, Oral 240 240 Patient 120 lb Weight Weight Bed scale Measurement Method Physical Exam General Appearance: Alert, Oriented X3, Cooperative, No Acute Distress Cardiovascular: Normal S1, Normal S2 Lungs: Right sided decrease air entery Abdomen: Normal Bowel Sounds, Soft, No Tenderness, No Hepatospenomegaly, No Masses Extremities: clubbing Assessment/Plan Assessment: 2-year-old woman with past medical history lung adenocarcinoma status post wedge resection(chemotherapy, radiation), breast cancer, bladder cancer, coronary artery disease, hypertension, hyperlipidemia, COPD, GERD. Presented to emergency department with shortness of breath and pain in the right side of the chest. She is on 3 L of oxygen at home started 21 May. At the time of presentation to emergency department her vitals and labs are given below. Vitals: Blood pressure 131/97, heart rate 70, respiratory rate 20, temperature 97.2, SaO2 94%. Labs; CBC WBC: 7.1, Hgb/hematocrit 11.9/36.8 Serum electrolytes are significant for sodium 132. Pleural fluid cytology WBC 1000, mesothelial cell 22, RBC 429, fluid protein 4.2 , LDH 387 Problems list: *Right-sided pleural effusion *Lung cancer Past medical history*bladder cancer breast cancer, CAD, hypertension, hyperlipidemia, COPD, GERD Right-sided pleural effusion in setting of lung cancer: -Patient had this pleural effusion on 21 May -Effusion is increasing and progressive -3 L of fluid were present -Chest tube placed -1 L drained -We will follow-up pulmonology recommendation -She is on 3 L oxygen -Nebulization will continue *History of lung adenocarcinoma status post wedge resection, chemo, and radiation: -Patient will follow up on outpatient basis -Chemotherapy will done on outpatient basis -Dr. arnold informed -He recommended patient will follow an outpatient basis -Chemotherapy will continue on outpatient basis *DNI DNR *DVT prophylaxis with subcutaneous heparin *History of breast cancer, on anastrozole -History of bladder cancer -COPD -CAD -Hypertension -Hyperlipidemia Problem List: 1. Lung cancer 2. Pleural effusion 3. Shortness of breath at rest Pain Ratin Pain Location: Pain a chest tube site Pain Goal: Remain pain free Pain Plan: Pain management pathway Tomorrow's Labs & Rationales: CBC Edison Peña 06/03/18 1330: Attending MD Review Statement Attending Statement Attending MD Statement: examined this patient, discuss w/resident/PA/AUDIO/VISUAL OPERATOR, agreed w/resident/PA/AUDIO/VISUAL OPERATOR, discussed with family, reviewed EMR data (avail), discussed with nursing, discussed with case mgmt Attending Assessment/Plan: 82 yr old female with non small cell lung cancer s/p chemo, wedge resection right side, radiation who was seen recently in the ER on 05/21 for sob and was found to be hypoxic and was sent home on oxygen. Pt presented back to ER with worsening sob and was found to have worsening rt side pleural effusion. 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 Pt in ER had a pleural catheter placed on rt side and had 1 L fluid drained and the tube was clamped after that. Plan is to f/u on repeat cxr today on 06/03 and f/u on pleural studies and cytology. Appreciated pulm consult. Depending on xray finding we would drain her effusion more today. dw/ pt and pts family at bedside the care plan.
--- NOTE | 2018-06-03 07:21 | Cons- Oncology ---
General Information and HPI Consulting Request Date of Consult: 06/03/18 Requested By: Mariana THURMAN,Edison Rojas History of Present Illness: The patient is an 82-year-old woman well known to me with advanced lung cancer. She was originally diagnosed with stage III cancer. She was treated with combined radiation and chemotherapy(Taxol and carboplatin). Despite this aggressive therapy, the patient rapid tumor growth. She is now anticipating systemic chemotherapy consisting of single agent gemcitabine. Tumor profiling was negative for DPDL1,ROS-1,ALK and EGDR mutation. Patient is now admitted with increasing shortness of breath. CAT scan revealed significant right pleural effusion, chest tube was placed and the patient is feeling much better. Allergies/Medications Allergies: Coded Allergies: ciprofloxacin (From CIPRO) (SWOLLEN FACE 03/03/18) hydromorphone (nausea 03/02/18) ragweed pollen (UNKNOWN 03/02/18) Home Med List: Anastrozole 1 MG TABLET 1 TAB PO DAILY BREAST CANCER (Reported) Aspirin (Ecotrin*) 81 MG TABLET.DR 1 TAB PO DAILY PROPHO (Reported) Calcium (Elemental-Fr Calcarb) (Calcium Carbonate) 600 MG CALCIUM (1,500 MG) TABLET 1 TAB PO DAILY SUPPLEMENT (Reported) Cholecalciferol (Vitamin D3) 1,000 UNIT TABLET 1 TAB PO DAILY VITAMIN SUPPORT (Reported) Cyanocobalamin (Vitamin B-12) (B-12 Dots) 500 MCG TABLET 1 TAB PO Q48 VITAMIN SUPPORT (Reported) Dexlansoprazole (Dexilant) 30 MG CAP.DR.BP 1 CAP PO DAILY GI (Reported) Ezetimibe (Zetia) 10 MG TABLET 1 TAB PO NIGHTLY CHOLESTEROL (Reported) Fluticasone/Salmeterol (Advair 250-50 Diskus) 250 MCG-50 MCG/DOSE BLST.W.DEV 1 PUF INH BID COPD (Reported) Multiple Vitamin (Multivitamins) 1 EACH TABLET 1 TAB PO DAILY SUPPLEMENT ( Reported) Nebivolol HCl (Bystolic) 5 MG TABLET 1 TAB PO DAILY HTN (Reported) Pitavastatin Calcium (Livalo) 4 MG TABLET 1 TAB PO DAILY CHOLESTEROL ( Reported) Tiotropium [place] (Spiriva) 18 MCG CAP.W.DEV 1 CAP INH DAILY COPD (Reported) Ubidecarenone (Coq-10) 100 MG CAPSULE 1 CAP PO Q48 SUPPLEMENT (Reported) Current Medications: Current Medications Sig/Juaquin Start time Last Medication Dose Route Stop Time Status Admin Acetaminophen 0 .STK-MED ONE 06/02 2024 DC PO Acetaminophen 650 MG Q6P PRN 06/02 1100 AC 06/03 PO 0154 Albuterol Sulfate 3 ML Q4P PRN 06/02 1945 AC INH Alprazolam 0.25 MG TID PRN 06/02 1115 AC 06/02 PO 06/09 1112022 Anastrozole 1 MG DAILY 06/02 1136 AC 06/02 PO 1627 Atorvastatin Calcium 10 MG 1700 06/02 1700 AC 06/02 PO 1626 Budesonide/ 2 PUF BID 06/02 2100 AC 06/02 Formoterol Fumarate INH 2016 Calcium/Vitamin D 500 MG DAILY 06/02 1137 AC 06/02 PO 1627 Cyanocobalamin 1,000 MCG DAILY 06/02 1140 AC 06/02 PO 1627 Ezetimibe 10 MG DAILY 06/02 1142 AC 06/02 PO 1626 Guaifenesin/Codeine 10 ML Q6P PRN 06/02 2000 AC 06/03 Phosphate PO 0154 Heparin Sodium 5,000 UNIT Q8 06/02 1400 AC 06/03 (Porcine) SC 0551 Multivitamins 1 TAB DAILY 06/02 1142 AC 06/02 Therapeutic PO 1626 Nebivolol 5 MG DAILY 06/02 1142 AC 06/02 PO 1627 Omeprazole 40 MG DAILY AC 06/02 1142 AC 06/03 PO 0551 Sodium Chloride 2 SPRAY Q4P PRN 06/02 2345 AC PATRICIA Tiotropium [place] 1 PUF DAILY 06/02 1143 AC 06/02 INH 1627 Review of Systems Review of Systems: Patient denies headaches or dizziness. Patient denies nausea vomiting or abdominal pain. Patient denies dysuria hematuria. 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 Home Who Do You Live With? spouse Services at Home: None Smoking Status: Former Smoker Functional Ability ADLs Independent: dressing, eating, toileting, bathing. Ambulation: independent IADLs Independent: shopping, housework, finances, food prep, telephone, transportation , medication admin. Exam & Diagnostic Data Vital Signs and I&O Vital Signs Date Time Temp Pulse Resp B/P B/P Pulse O2 O2 Flow FiO2 Mean Ox Delivery Rate 06/03 0636 97.5 90 20 98/58 94 Nasal 3.0L Cannula 06/02 2353 91 Nasal 3.0L Cannula 06/02 2200 97.8 80 16 100/60 91 Nasal 3.0L Cannula 06/02 1928 Nasal 2.5L Cannula 06/02 1627 73 132/64 06/02 1535 97.6 73 18 132/64 95 05 1400 Nasal 3.0L Cannula 06/02 1041 97.7 72 20 143/68 98 Nasal 3.0L Cannula 06/02 0849 97.6 70 20 131/59 94 Nasal 3.0L Cannula 06/02 0720 Nasal 2.0L Cannula Intake & Output 06/03 0800 06/03 0000 06/02 1600 Intake Total 260 250 Output Total Balance 260 250 Intake, IV 20 10 Intake, Oral 240 240 Patient 120 lb 117 lb Weight Weight Bed scale Bed scale Measurement Method Gen.: in NAD ENT: Sclera anicteric Chest: Normal respiratory effort, decreased breath sounds on right, catheter in place Cor: RRR, no extra sounds Abdomen: Soft, bowel sounds present, no tenderness, no rebound Extremities: Without clubbing, cyanosis, or asymmetric edema Neurology: Alert and oriented 3, no gross deficit Skin: No rashes Last 48 Hours of Lab Results: Laboratory Tests 06/03 06/02 06/02 0611 1220 1220 Chemistry Sodium Pending Potassium Pending Chloride Pending Carbon Dioxide Pending Anion Gap Pending BUN Pending Creatinine Pending BUN/Creatinine Ratio Pending Magnesium Pending Hematology CBC w Diff Pending WBC Pending RBC Pending Hgb Pending Hct Pending MCV Pending MCH Pending MCHC Pending RDW Pending Plt Count Pending MPV Pending Other Body Source Fluid WBC (0 - 5 /CUMM) 1000 H Fld Mesothelial Cells (%) 22 Fld Total RBCs Counted (0 /CUMM) 429 H Pleural pH (PH) 7.39 06/02 1220 Chemistry Lactate Dehydrogenase (313 - 618 U/L) 387 Hematology Lymphocytes (%) 60 % Normal PMNs (%) 18 Miscellaneous Phlebotomy Draw Site RIGHT THORACENTESIS Other Body Source Fluid Total Protein (g/dL) 4.1 Fluid Albumin (g/dL) 2.2 Fluid LDH (U/L) 387 06/02 0735 Chemistry Sodium (137 - 145 mmol/L) 132 L Potassium (3.5 - 5.1 mmol/L) 4.4 Chloride (98 - 107 mmol/L) 91 L Carbon Dioxide (22 - 30 mmol/L) 32 H Anion Gap (5 - 16) 9 BUN (7 - 17 mg/dL) 9 Creatinine (0.5 - 1.0 mg/dL) 0.4 L Estimated GFR (>60 ml/min) > 60 BUN/Creatinine Ratio (7 - 25 %) 22.5 Glucose (65 - 99 mg/dL) 110 H Calcium (8.4 - 10.2 mg/dL) 9.4 Total Bilirubin (0.2 - 1.3 mg/dL) 0.4 Direct Bilirubin (< 0.4 mg/dL) 0.3 AST (14 - 36 U/L) 21 ALT (9 - 52 U/L) 29 Alkaline Phosphatase (<127 U/L) 86 Lactate Dehydrogenase (313 - 618 U/L) 302 L Troponin I (< 0.11 ng/ml) < 0.01 Total Protein (6.3 - 8.2 g/dL) 5.9 L Albumin (3.5 - 5.0 g/dL) 3.1 L Amylase (30 - 110 U/L) < 30 L Lipase (23 - 300 U/L) 28 Coagulation PT (9.4 - 12.5 SEC) 12.7 H INR (0.90 - 1.19) 1.16 APTT (25 - 37 SEC) 37 D-Dimer High Sensitivty (0 - 243 ng/ml) 259 H Hematology CBC w Diff NO MAN DIFF REQ WBC (4.8 - 10.8 /CUMM) 7.1 RBC (4.20 - 5.40 /CUMM) 4.69 Hgb (12.0 - 16.0 G/DL) 11.9 L Hct (37 - 47 %) 36.8 L MCV (81.0 - 99.0 FL) 78.5 L MCH (27.0 - 31.0 PG) 25.3 L MCHC (33.0 - 37.0 G/DL) 32.3 L RDW (11.5 - 14.5 %) 15.9 H Plt Count (130 - 400 /CUMM) 638 H MPV (7.4 - 10.4 FL) 7.6 Gran % (42.2 - 75.2 %) 91.0 H Lymphocytes % (20.5 - 51.1 %) 3.5 L Monocytes % (1.7 - 9.3 %) 4.6 Eosinophils % (0 - 5 %) 0.9 Basophils % (0.0 - 2.0 %) 0 Absolute Granulocytes (1.4 - 6.5 /CUMM) 6.5 Absolute Lymphocytes (1.2 - 3.4 /CUMM) 0.2 L Absolute Monocytes (0.10 - 0.60 /CUMM) 0.3 Absolute Eosinophils (0.0 - 0.7 /CUMM) 0.1 Absolute Basophils (0.0 - 0.2 /CUMM) 0 Imaging/Other Studies: CTA-no pulmonary emboli, increasing mass and adenopathy, pleural effusion on right Assessment/Plan Assessment: 1. Advanced stage non-small cell lung carcinoma-agent has documented progression and presumably the increasing pleural effusion is malignant in origin Recommend- Hopefully patient can be discharged with Pleurx catheter Chemotherapy to begin as an outpatient 2. Overall status-the patient understands her poor prognosis. She does not wish heroic intervention but wishes to continue with systemic therapy Recommendations: .. Consult Acknowledgment - Thank you for your consult request.
[2018-06-03 08:20] LABS: ABSOLUTE BASOPHIL COUNT 0 /CUMM (0.0-0.2); ABSOLUTE EOSINOPHIL COUNT 0.1 /CUMM (0.0-0.7); ABSOLUTE GRANULOCYTE CT 5.6 /CUMM (1.4-6.5); ABSOLUTE LYMPH COUNT 0.4 /CUMM (1.2-3.4); ABSOLUTE MONOCYTE COUNT 0.6 /CUMM (0.10-0.60); BASOPHIL % 0 % (0.0-2.0); EOSINOPHIL % 1.2 % (0-5); HEMATOCRIT 38.9 % (37-47); MEAN CORPUSCULAR HGB 25.1 PG (27.0-31.0); MEAN CORPUSCULAR VOLUME 78.4 FL (81.0-99.0); MEAN PLATELET VOLUME 8.2 FL (7.4-10.4); PLATELET COUNT 598 /CUMM (130-400); RBC DISTRIBUTION WIDTH 16.1 % (11.5-14.5); RED BLOOD CELL CT 4.96 /CUMM (4.20-5.40); WHITE BLOOD CELL COUNT 6.7 /CUMM (4.8-10.8)
[2018-06-03 09:00] LABS: GRANULOCYTE % 83.4 % (42.2-75.2)
--- NOTE | 2018-06-03 09:03 | Patient Discharge Instructions ---
See Addendum Discharge Instructions General Discharge Information Watch for these problems: Fever, blood in sputum, chest pain, blood in urine or stool Special Instructions: Follow up with pritillarry care physician in one week Follow up with oncologist in two weeks Diet Continue normal diet: Yes Activity Activity Self Limited: Yes Acute Coronary Syndrome Inclusion Criteria At DC or during hospital stay patient has or had the following: ACS DIAGNOSIS No Discharge Core Measures Meds if any: Prescribed or Continued at Discharge Meds if any: NOT Prescribed or Continued at Discharge Congestive Heart Failure Inclusion Criteria At DC or during hospital stay patient has or had the following: CHF DIAGNOSIS No Discharge Core Measures Meds if any: Prescribed or Continued at Discharge Meds if any: NOT Prescribed or Continued at Discharge Cerebrovascular accident Inclusion Criteria At DC or during hospital stay patient has or had the following: CVA/TIA Diagnosis No Discharge Core Measures Meds if any: Prescribed or Continued at Discharge Meds if any: NOT Prescribed or Continued at Discharge Venous thromboembolism Inclusion Criteria VTE Diagnosis No VTE Type NONE VTE Confirmed by (Test) NONE Discharge Core Measures - Per Current guidelines, there needs to be overlap - treatment for the first 5 days of Warfarin therapy. - If discharged on Warfarin prior to 5 days of - overlap therapy, the patient will need to be - assessed for post discharge needs including - *Post discharge parental anticoagulation - *Warfarin and/or parental anticoagulation education - *Follow up date to check INR post discharge At least 5 days overlap therapy as Inpatient No Meds if any: Prescribed or Continued at Discharge Note: Overlap Therapy is Warfarin and Anticoagulant Meds if any: NOT Prescribed or Continued at Discharge
--- NOTE | 2018-06-03 10:19 | PN- Pulmonary ---
Subjective HPI/Critical Care Issues: pt seen and examined dyspnea returns chest tube was clamped overnight awaiting cxr this am no n/v/d/c no cp, no graham Objective Current Medications: Current Medications Sig/Juaquin Start time Last Medication Dose Route Stop Time Status Admin Acetaminophen 0 .STK-MED ONE 06/02 2024 DC PO Acetaminophen 650 MG Q6P PRN 06/02 1100 AC 06/03 PO 0857 Albuterol Sulfate 3 ML Q4P PRN 06/02 194 AC INH Alprazolam 0.25 MG TID PRN 06/02 1115 AC 06/02 PO 06/09 [id number] Anastrozole 1 MG DAILY 06/02 1136 AC 06/03 PO 0757 Atorvastatin Calcium 10 MG 1700 06/02 1700 AC 06/02 PO 1626 Budesonide/ 2 PUF BID 06/02 2100 AC 06/03 Formoterol Fumarate INH 0758 Calcium/Vitamin D 500 MG DAILY 06/02 1137 AC 06/03 PO 0758 Cyanocobalamin 1,000 MCG DAILY 06/02 1140 AC 06/03 PO 0759 Ezetimibe 10 MG DAILY 06/02 1142 AC 06/03 PO 0759 Guaifenesin/Codeine 10 ML Q6P PRN 06/02 2000 AC 06/03 Phosphate PO 0154 Heparin Sodium 5,000 UNIT Q8 06/02 1400 AC 06/03 (Porcine) SC 0551 Multivitamins 1 TAB DAILY 06/02 1142 AC 06/03 Therapeutic PO 0759 Nebivolol 5 MG DAILY 06/02 1142 AC 06/02 PO 1627 Omeprazole 40 MG DAILY AC 06/02 1142 AC 06/03 PO 0551 Sodium Chloride 2 SPRAY Q4P PRN 06/02 2345 AC PATRICIA Tiotropium [place] 1 PUF DAILY 06/02 1143 AC 06/03 INH 0758 Vital Signs & I&O Last 24 Hrs of Vitals and I&O: Vital Signs Date Time Temp Pulse Resp B/P B/P Pulse O2 O2 Flow FiO2 Mean Ox Delivery Rate 06/03 0800 Nasal 3.0L Cannula 06/03 0757 97.5 90 20 98/58 06/03 0636 97.5 90 20 98/58 94 Nasal 3.0L Cannula 06/02 2353 91 Nasal 3.0L Cannula 06/02 2200 97.8 80 16 100/60 91 Nasal 3.0L Cannula 06/02 1928 Nasal 2.5L Cannula 06/02 1627 73 132/64 06/02 1535 97.6 73 18 132/64 95 06/02 1400 Nasal 3.0L Cannula 06/02 1041 97.7 72 20 143/68 98 Nasal 3.0L Cannula Intake & Output 06/03 1600 06/03 0800 06/03 0000 Intake Total 260 250 Output Total Balance 260 250 Intake, IV 20 10 Intake, Oral 240 240 Patient 120 lb Weight Weight Bed scale Measurement Method Exam Other Physical Findings: [id number] heent-o2 cvs-s1,s2 lungs-right sided catheter, bs diminished on right abd-soft,bs+ ext-without edema Results Last 24 Hrs of Lab Results: Laboratory Tests 06/03/18 0611: CBC w Diff NO MAN DIFF REQ, RBC 4.96, MCV 78.4 L, MCH 25.1 L, MCHC 32.0 L, RDW 16.1 H, MPV 8.2, Gran % 83.4 H, Lymphocytes % 5.8 L, Monocytes % 9.6 H, Eosinophils % 1.2, Basophils % 0, Absolute Granulocytes 5.6, Absolute Lymphocytes 0.4 L, Absolute Monocytes 0.6, Absolute Eosinophils 0.1, Absolute Basophils 0 06/02/18 1220: Pleural pH 7.39 06/02/18 1220: Fluid WBC 1000 H, Fld Mesothelial Cells 22, Fld Total RBCs Counted 429 H 06/02/18 1220: Lactate Dehydrogenase 387, Lymphocytes 60, % Normal PMNs 18, Phlebotomy Draw Site RIGHT THORACENTESIS, Fluid Total Protein 4.1, Fluid Albumin 2.2, Fluid LDH 387 Impression/Plan Impression/Plan Impression/Plan: Impression 82 year old woman * large pleural effusion in the setting of non-small cell lung cancer * COPD Plan -s/p thoracentesis with insertion of an indwelling pleural catheter - s/p 1L removal -CXR right now, depending on reaccumulation status will consider a pleurx catheter vs. complete drainage -f/u all pleural studies including cytology -TRC/Nebs -continue inhalers -continue oxygen supplementation to goal fio2 >88% -f/u Dr. Fletcher's recommendations DVT prophylaxis at all times
--- NOTE | 2018-06-03 11:21 | Discharge Summary ---
Visit Information Visit Dates Admission Date: 06/02/18 Discharge Date: 06/09/18 Hospital Course Course Attending Physician: Brad Allen MD Primary Care Physician: Jay Staton MD Hospital Course: 82-year-old woman with past medical history lung adenocarcinoma status post wedge resection(chemotherapy, radiation), breast cancer, bladder cancer, coronary artery disease, hypertension, hyperlipidemia, COPD, GERD. Presented to emergency department with shortness of breath and pain in the right side of the chest. She is on 3 L of oxygen at home started 21 May. Hospital Course: At the time of presentation to emergency department her vitals and labs are given below. Vitals: Blood pressure 131/97, heart rate 70, respiratory rate 20, temperature 97.2, SaO2 94%. Labs; CBC WBC: 7.1, Hgb/hematocrit 11.9/36.8 Serum electrolytes are significant for sodium 132. Pleural fluid cytology WBC 1000, mesothelial cell 22, RBC 429, fluid protein 4.2 , LDH 387 CT Scan: -Report shows:1. Moderate pulmonary emphysema. 2. Large mass of right hilum obstructs the right upper lobe bronchi and right upper lobe remains collapsed. The pulmonary and pleural-based nodules remain unchanged compared to 05/21/2018. Also, although a pleural drainage catheter is present in the inferior right hemithorax, the size of the moderate, loculated right pleural effusion is not appreciably changed compared to 05/21/2018. 3. The mediastinal lymphadenopathy is stable compared to 05/21/2018. He was treated for the following problems: *Right-sided pleural effusion *Lung cancer Past medical history of bladder cancer breast cancer, CAD, hypertension, hyperlipidemia, COPD, GERD Right-sided pleural effusion: She had right side pleural effusion which was malagnant. Pulmonology recommendation apprecited. 2100ml fluid drained. PLeuoRx cathetr placed. Patient shortness of breath improved. She was initially on 3 L of oxygen. Now she is doing great on 1L of oxygen and mantaining a saturation of 94%. Patien neubulization will be continued. Home medication is continued. Fluid will be drain twice by home nurse. *History of lung adenocarcinoma status post wedge resection, chemo, and radiation: -Patient will follow up on outpatient basis. Dr Mitchell Oncologits recommendaiton apprecited. *Patient will dischare today with home health care. Allergies: Coded Allergies: ciprofloxacin (From CIPRO) (SWOLLEN FACE 03/03/18) hydromorphone (nausea 03/02/18) ragweed pollen (UNKNOWN 03/02/18) Disposition Summary Disposition Principal Diagnosis: Malagnant right side pleural effusion Additional Diagnosis: CA Lung. Discharge Disposition: home health services Discharge Instructions General Discharge Information Code Status: Do Not Resucitate/Intubat Patient's Diet: Regular diet Patient's Activity: self limited Follow-Up Instructions/Appts: Please follow up with Dr Garcia Professional Development Manager in two weeks PLease follow up with Dr Mitchell oncologist in two weeks please follow up with [facility] [place] physician in one week Medications at Discharge Discharge Medications: Continue taking these medications: Pitavastatin Calcium (Livalo) 4 MG TABLET 1 Tablet ORAL DAILY Comments: NOT GIVEN IN HOSPITAL Anastrozole (Anastrozole) 1 MG TABLET 1 Tablet ORAL DAILY Comments: Last Taken: 06/09/18 Time: 8:45 AM Ezetimibe (Zetia) 10 MG TABLET 1 Tablet ORAL NIGHTLY Comments: Last Taken: 03/17/17 Time: 0930AM Fluticasone/Salmeterol (Advair 250-50 Diskus) 250 MCG-50 MCG/DOSE BLST.W.DEV 1 Puff Inhale through mouth TWICE DAILY Comments: NOT GIVEN IN HOSPITAL SYMBICORT GIVEN 03/17/17 @ 0930AM Tiotropium [place] (Spiriva) 18 MCG CAP.W.DEV 1 Capsule Inhale through mouth DAILY Comments: Last Taken: 06/09/18 Time: 8:45 AM Nebivolol HCl (Bystolic) 5 MG TABLET 1 Tablet ORAL DAILY Comments: Last Taken: 06/09/18 Time: 8:45 AM Aspirin (Ecotrin*) 81 MG TABLET.DR 1 Tablet ORAL DAILY Comments: NOT GIVEN IN HOSPITAL Dexlansoprazole (Dexilant) 30 MG CAP.BP 1 Capsule ORAL DAILY Comments: NOT GIVEN IN HOSPITAL Multiple Vitamin (Multivitamins) 1 EACH TABLET 1 Tablet ORAL DAILY Comments: Last Taken: 06/09/18 Time: 8:45 AM Ubidecarenone (Coq-10) 100 MG CAPSULE 1 Capsule ORAL EVERY 48 HOURS (Every 2 days) Comments: NOT GIVEN IN HOSPITAL Cyanocobalamin (Vitamin B-12) (B-12 Dots) 500 MCG TABLET 1 Tablet ORAL EVERY 48 HOURS (Every 2 days) Comments: Last Taken: 06/09/18 Time: 8:45 AM Cholecalciferol (Vitamin D3) 1,000 UNIT TABLET 1 Tablet ORAL DAILY Comments: NOT GIVEN IN HOSPITAL Calcium (Elemental-Fr Calcarb) (Calcium Carbonate) 600 MG CALCIUM (1,500 MG) TABLET 1 Tablet ORAL DAILY Comments: Last Taken: 06/09/18 Time: 8:45 AM Start taking the following new medications: Oxycodone HCl/Acetaminophen (Percocet 5-325 MG Tablet) 5 MG-325 MG TABLET 1 Tablet ORAL TWICE DAILY as needed for PAIN Qty = 10 No Refills Instructions: . Comments: Last Taken: 06/09/18 Time: 5:00 AM Copies To: Brionna THURMAN,Jay Mendoza; Radha THURMAN,Thomas Attending MD Review Statement Documenting Attending: Brad Allen MD Other Findings: 82 yr old female with non small cell lung cancer s/p chemo, wedge resection right side, radiation who was seen recently in the ER on 05/21 for sob and was found to be hypoxic and was sent home on oxygen. Pt presented back to ER with worsening sob and was found to have worsening rt side pleural effusion. Hypoxia with recurrent pleural effusion in pt with Lung cancer- malignant pleural effusion. Hemodynamcially stable on oxygen supplementation with chest tube intact. Afebrile. Followed pulmoanry recommendations S/P pleurex catheter placement. Oncology f/u. Plan for chemotherapy as per oncology as outpatient. Discharge recommendations based on pulmonary and CTVS. Arranged home services for pleurex catheter drainage twice a week. Medically stbale for discharge with outpatient follow up with Pulmonary Dr Garcia and oncology Dr Fletcher.
--- NOTE | 2018-06-03 13:31 | RADIOLOGY REPORT ---
EXAMINATION: XR CHEST CLINICAL INFORMATION: "Patient having chest tube difficult to move." Presumptive diagnosis of pleural effusion. COMPARISON: Several prior chest x-rays, most recent of which is dated 06/02/2018. TECHNIQUE: 2 views of the chest were obtained. FINDINGS: No change in positioning of the right basilar pleural catheter is seen. There is persistent moderate size right-sided pleural effusion layering inferiorly in the right hemithorax and extending into the right lung apex. Small amount of air is seen in the right lung apex with air-fluid levels seen, consistent with iatrogenic introduction of air during recent ultrasound-guided chest tube placement. The visualized right lung shows diffuse parenchymal opacity. There is volume loss and dense opacity in the right lower lobe. The left lung is fully expanded with mild left basilar subsegmental atelectasis. No focal left-sided consolidation or effusion or pneumothorax is seen. There is diffuse osteopenia with multilevel mild vertebral spondylosis and mild S-shaped thoracolumbar scoliosis. IMPRESSION: 1. Right basilar pleural catheter is again noted with no significant change in moderate size right-sided loculated pleural effusion. 2. Small locules of air in the right lung apex are likely related to iatrogenic introduction from right-sided pleural catheter. 3. Diffuse opacity throughout the right lung likely due to incomplete expansion/atelectasis. In addition, right basilar consolidation or atelectasis are seen.
[2018-06-03 14:24] VITALS: BP 100/58
[2018-06-03 22:02] VITALS: BP 100/70
[2018-06-04 05:43] VITALS: BP 100/68
--- NOTE | 2018-06-04 06:51 | PN- Housestaff ---
Joo Smallwood 06/04/18 0651: Subjective Follow-up For: Right-sided pleural effusion in the setting of lung cancer Subjective: Patient seen and examined at bedside today. She was complaining of pain yesterday evening. ECG and troponin level was normal. She is feeling better today. She denies fever, chest pain, palpitation, abdominal pain, diarrhea, constipation, burning micturition Review of Systems Constitutional: Reports: see HPI. Objective Last 24 Hrs of Vital Signs/I&O Vital Signs Date Time Temp Pulse Resp B/P B/P Pulse O2 O2 Flow FiO2 Mean Ox Delivery Rate 06/04 1434 98.3 78 20 98/60 90 Nasal 3.0L Cannula 06/04 1210 93 Nasal 3.0L Cannula 06/04 0822 98.0 69 18 100/68 06/04 0800 Nasal 3.0L Cannula 06/04 0543 98.0 69 18 100/68 97 Nasal 3.0L Cannula 06/04 0000 92 Nasal 3.0L Cannula 06/03 2202 98.0 76 18 100/70 95 Nasal Cannula 06/03 1923 95 Nasal 3.0L Cannula Intake & Output 06/04 1600 06/04 0800 06/04 0000 Intake Total 1000 250 260 Output Total 400 Balance 600 250 260 Intake, IV 200 10 20 Intake, Oral 800 240 240 Output, Urine 400 Patient 118 lb Weight . Physical Exam General Appearance: Alert, Oriented X3, Cooperative, No Acute Distress Cardiovascular: Regular Rate, Normal S1, Normal S2 Lungs: Decrease air entery in right lung bases and kleft lung upper lobe Abdomen: Normal Bowel Sounds, Soft, No Tenderness, No Hepatospenomegaly Extremities: No Cyanosis, No Edema, Normal Pulses, No Tenderness/Swelling, clubbing Assessment/Plan Assessment: 82-year-old woman with past medical history lung adenocarcinoma status post wedge resection(chemotherapy, radiation), breast cancer, bladder cancer, coronary artery disease, hypertension, hyperlipidemia, COPD, GERD. Presented to emergency department with shortness of breath and pain in the right side of the chest. She is on 3 L of oxygen at home started 21 May. At the time of presentation to emergency department her vitals and labs are given below. Vitals: Blood pressure 131/97, heart rate 70, respiratory rate 20, temperature 97.2, SaO2 94%. Labs; CBC WBC: 7.1, Hgb/hematocrit 11.9/36.8 Serum electrolytes are significant for sodium 132. Pleural fluid cytology WBC 1000, mesothelial cell 22, RBC 429, fluid protein 4.2 , LDH 387 Problems list: *Right-sided pleural effusion *Lung cancer Past medical history*bladder cancer breast cancer, CAD, hypertension, hyperlipidemia, COPD, GERD Right-sided pleural effusion in setting of lung cancer: -3 L of fluid were present -Chest tube placed -2 L of fluid drained so far -3 L drained will be completed today when I examined there was 70 mL of fluid -Today x-ray showed increased air in the right lung compared to yesterday -We will follow-up pulmonology recommendation -She is on 3 L oxygen and saturation is good -Nebulization will continue Pulmonology recommendation appreciated: -He recommended we will do CT chest after 2 days Then we will think about pleurodesis- -we will discharge the patient with some other complaint -We will clamp the tube after 1 L fluid drained today *History of lung adenocarcinoma status post wedge resection, chemo, and radiation: -Patient will follow up on outpatient basis -Chemotherapy will done on outpatient basis -Dr. arnold informed -He recommended patient will follow an outpatient basis -Chemotherapy will continue on outpatient basis *DNI DNR *DVT prophylaxis with subcutaneous heparin *History of breast cancer, on anastrozole -History of bladder cancer -COPD -CAD -Hypertension -Hyperlipidemia Problem List: 1. Lung cancer 2. Shortness of breath at rest 3. Pleural effusion 4. COPD (chronic obstructive pulmonary disease) Pain Ratin Pain Location: No pain Pain Goal: Remain pain free Pain Plan: Pain management pathway Tomorrow's Labs & Rationales: cbc,bep Edison Peña 06/04/18 1246: Attending MD Review Statement Attending Statement Attending MD Statement: examined this patient, discuss w/resident/PA/BULL BUCKER, agreed w/resident/PA/BULL BUCKER, reviewed EMR data (avail), discussed with nursing, discussed with case mgmt Attending Assessment/Plan: 82 yr old female with non small cell lung cancer s/p chemo, wedge resection right side, radiation who was seen recently in the ER on 05/21 for sob and was found to be hypoxic and was sent home on oxygen. Pt presented back to ER with worsening sob and was found to have worsening rt side pleural effusion. 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 Pt in ER had a pleural catheter placed on rt side and had 1 L fluid drained and the tube was clamped after that. Had another liter of fluid removed on 06/03, Will f/u on repeat CXR today and appreciated pulm consult. Depending on xray finding we would drain her effusion more today. Pt may need placement of pleurex catheter and possibly pleurodesis. dw/ pt and pts family at bedside the care plan.
--- NOTE | 2018-06-04 07:24 | PN- Pulmonary ---
See Addendum Subjective HPI/Critical Care Issues: pt seen and examined dyspnea improved additional 1L (total 2L) drained some debris is noted in the chest tube feels better still with reduced breath sounds using IST no n/v/d/c, no cp, no graahm Objective Current Medications: Current Medications Sig/Juaquin Start time Last Medication Dose Route Stop Time Status Admin Acetaminophen 650 MG Q6P PRN 06/02 1100 AC 06/04 PO 0509 Albuterol Sulfate 3 ML Q4P PRN 06/02 1945 AC INH Alprazolam 0.25 MG TID PRN 06/02 1115 AC 06/03 PO 06/09 1114 2141 Anastrozole 1 MG DAILY 06/02 1136 AC 06/03 PO 0757 Atorvastatin Calcium 10 MG 1700 06/02 1700 AC 06/03 PO 1723 Budesonide/ 2 PUF BID 06/02 2100 AC 06/03 Formoterol Fumarate INH 2139 Calcium/Vitamin D 500 MG DAILY 06/02 1137 AC 06/03 PO 0758 Cyanocobalamin 1,000 MCG DAILY 06/02 1140 AC 06/03 PO 0759 Ezetimibe 10 MG DAILY 06/02 1142 AC 06/03 PO 0759 Guaifenesin/Codeine 10 ML Q6P PRN 06/02 2000 AC 06/03 Phosphate PO 2141 Heparin Sodium 5,000 UNIT Q8 06/02 1400 AC 06/04 (Porcine) SC 0507 Multivitamins 1 TAB DAILY 06/02 1142 AC 06/03 Therapeutic PO 0759 Nebivolol 5 MG DAILY 06/02 1142 AC 06/02 PO 1627 Omeprazole 40 MG DAILY AC 06/02 1142 AC 06/04 PO 0508 Patient Medication 1 ED ONE ONE 06/03 1300 DC 06/03 Teaching ED 06/03 1301 1424 Polyethylene Glycol 17 GM ONCE ONE 06/03 1200 DC 06/03 PO 06/03 1201 1423 Sodium Chloride 2 SPRAY Q4P PRN 06/02 2345 AC PATRICIA Tiotropium [place] 1 PUF DAILY 06/02 1143 AC 06/03 INH 0758 Vital Signs & I&O Last 24 Hrs of Vitals and I&O: Vital Signs Date Time Temp Pulse Resp B/P B/P Pulse O2 O2 Flow FiO2 Mean Ox Delivery Rate 06/04 0543 98.0 69 18 100/68 97 Nasal 3.0L Cannula 06/04 0000 92 Nasal 3.0L Cannula 06/03 2202 98.0 76 18 100/70 95 Nasal Cannula 06/03 1923 95 Nasal 3.0L Cannula 06/03 1424 97.0 68 20 100/58 94 Nasal 3.0L Cannula 06/03 1348 93 Nasal 3.0L Cannula 06/03 0800 Nasal 3.0L Cannula 06/03 0757 97.5 90 20 98/58 Intake & Output 06/04 0800 06/04 0000 06/03 1600 Intake Total 250 260 800 Output Total 1400 Balance 250 260 -600 Intake, IV 10 20 Intake, Oral 240 240 800 Output, Chest 1000 Tube Drainage Output, Urine 400 Patient 118 lb Weight Exam Other Physical Findings: [id number] heent-o2 cvs-s1,s2 lungs-right sided catheter, bs diminished on right abd-soft,bs+ ext-without edema Results Last 24 Hrs of Lab Results: Laboratory Tests 06/03/18 2055: Troponin I < 0.01 06/03/18 1450: Anion Gap 7, Estimated GFR > 60, BUN/Creatinine Ratio 27.5 H, Magnesium 1.1 L Impression/Plan Impression/Plan Impression/Plan: Impression 82 year old woman * large pleural effusion in the setting of non-small cell lung cancer * COPD Plan -s/p thoracentesis with insertion of an indwelling pleural catheter - s/p 1L removal yesterday - now total 2Liters -CXR this am - depending on reaccumulation status will consider a pleurx catheter vs. complete drainage -f/u all pleural studies including cytology -TRC/Nebs -continue inhalers -continue oxygen supplementation to goal fio2 >88% -f/u Dr. Fletcher's recommendations DVT prophylaxis at all times At home - takes Advair/Spiriva/Proair
--- NOTE | 2018-06-04 07:42 | PN- Oncology ---
Subjective Subjective: Continues to feel better with less shortness of breath 12 point review of systems otherwise unchanged Objective Vital Signs and I&Os Vital Signs Date Time Temp Pulse Resp B/P B/P Pulse O2 O2 Flow FiO2 Mean Ox Delivery Rate 06/04 0543 98.0 69 18 100/68 97 Nasal 3.0L Cannula 06/04 0000 92 Nasal 3.0L Cannula 06/03 2202 98.0 76 18 100/70 95 Nasal Cannula 06/03 1923 95 Nasal 3.0L Cannula 06/03 1424 97.0 68 20 100/58 94 Nasal 3.0L Cannula 06/03 1348 93 Nasal 3.0L Cannula 06/03 0800 Nasal 3.0L Cannula 06/03 0757 97.5 90 20 98/58 Intake & Output 06/04 0800 06/04 0000 06/03 1600 06/03 0800 06/03 0000 06/02 1600 Intake Total 250 260 800 260 250 Output Total 1400 Balance 250 260 -600 260 250 Intake, IV 10 20 20 10 Intake, Oral 240 240 800 240 240 Output, Chest 1000 Tube Drainage Output, Urine 400 Patient 118 lb 120 lb 117 lb Weight Weight Bed scale Bed scale Measurement Method Gen.: in NAD ENT: Sclera anicteric Chest: Normal respiratory effort, decreased breath sounds, chest tube in place Cor: RRR, no extra sounds Abdomen: Soft, bowel sounds present, no tenderness, no rebound Extremities: Without clubbing, cyanosis, or asymmetric edema Neurology: Alert and oriented 3, no gross deficit Current Medications: Current Medications Sig/Juaquin Start time Last Medication Dose Route Stop Time Status Admin Acetaminophen 650 MG Q6P PRN 06/02 1100 AC 06/04 PO 0509 Albuterol Sulfate 3 ML Q4P PRN 06/02 1945 AC INH Alprazolam 0.25 MG TID PRN 06/02 1115 AC 06/03 PO 06/09 111 2141 Anastrozole 1 MG DAILY 06/02 1136 AC 06/03 PO 0757 Atorvastatin Calcium 10 MG 1700 06/02 1700 AC 06/03 PO 1723 Budesonide/ 2 PUF BID 06/02 2100 AC 06/03 Formoterol Fumarate INH 2139 Calcium/Vitamin D 500 MG DAILY 06/02 1137 AC 06/03 PO 0758 Cyanocobalamin 1,000 MCG DAILY 06/02 1140 AC 06/03 PO 0759 Ezetimibe 10 MG DAILY 06/02 1142 AC 06/03 PO 0759 Guaifenesin/Codeine 10 ML Q6P PRN 06/02 2000 AC 06/03 Phosphate PO 2141 Heparin Sodium 5,000 UNIT Q8 06/02 1400 AC 06/04 (Porcine) SC 0507 Multivitamins 1 TAB DAILY 06/02 1142 AC 06/03 Therapeutic PO 0759 Nebivolol 5 MG DAILY 06/02 1142 AC 06/02 PO 1627 Omeprazole 40 MG DAILY AC 06/02 1142 AC 06/04 PO 0508 Patient Medication 1 ED ONE ONE 06/03 1300 DC 06/03 Teaching ED 06/03 1301 1424 Polyethylene Glycol 17 GM ONCE ONE 06/03 1200 DC 06/03 PO 06/03 1201 1423 Sodium Chloride 2 SPRAY Q4P PRN 06/02 2345 AC PATRICIA Tiotropium [place] 1 PUF DAILY 06/02 1143 AC 06/03 INH 0758 Assessment/Plan Assessment/Recommendations: 1. Metastatic lung cancer-clinically improved with chest tube Recommend- Await cytology Presumably patient will receive a Pleurx catheter Follow-up in my office
[2018-06-04 08:41] LABS: ABSOLUTE BASOPHIL COUNT 0 /CUMM (0.0-0.2); ABSOLUTE EOSINOPHIL COUNT 0.1 /CUMM (0.0-0.7); ABSOLUTE GRANULOCYTE CT 6.6 /CUMM (1.4-6.5); ABSOLUTE LYMPH COUNT 0.3 /CUMM (1.2-3.4); ABSOLUTE MONOCYTE COUNT 0.6 /CUMM (0.10-0.60); BASOPHIL % 0.1 % (0.0-2.0); HEMATOCRIT 34.8 % (37-47); MEAN CORPUSCULAR HGB 25.2 PG (27.0-31.0); MEAN CORPUSCULAR HGB CONC 32.2 G/DL (33.0-37.0); MEAN CORPUSCULAR VOLUME 78.3 FL (81.0-99.0); MEAN PLATELET VOLUME 8.4 FL (7.4-10.4); PLATELET COUNT 558 /CUMM (130-400); RED BLOOD CELL CT 4.45 /CUMM (4.20-5.40)
--- NOTE | 2018-06-04 08:52 | RADIOLOGY REPORT ---
EXAMINATION: XR CHEST CLINICAL INFORMATION: Follow-up pleural effusion. Recent thoracentesis. COMPARISON: 06/03/2018 TECHNIQUE: 2 views of the chest were obtained. FINDINGS: Again noted is the right hilar mass. Pigtail drainage catheter in the base of the right hemithorax. The amount of pleural fluid in the right base has decreased compared to 06/03/2018. The loculated fluid at the right apex is unchanged. Overall, the aeration of the right lung is slightly improved compared to 06/03/2018. Nonspecific patchy opacity is present in the right middle/lower lobe from consolidation and/or atelectasis. No acute findings within the left lung. Cardiac silhouette is normal in size. Pulmonary arteries are enlarged, suggestive of pulmonary arterial hypertension. No pneumothorax or other significant interval change. IMPRESSION: - Persistent right pleural effusion with loculated component at the right apex. The volume of pleural fluid in the right base is relatively small and decreased compared to 06/03/2018. No pneumothorax. - Overall, the aeration of the right lung has improved compared to 06/03/2018.
[2018-06-04 09:54] LABS: WHITE BLOOD CELL COUNT 7.6 /CUMM (4.8-10.8)
[2018-06-04 14:34] VITALS: BP 98/60
--- NOTE | 2018-06-04 19:46 | Discharge Summary ---
Hospital Course Allergies: Coded Allergies: ciprofloxacin (From CIPRO) (SWOLLEN FACE 03/03/18) hydromorphone (nausea 03/02/18) ragweed pollen (UNKNOWN 03/02/18) Discharge Instructions Medications at Discharge Discharge Medications: Continue taking these medications: Pitavastatin Calcium (Livalo) 4 MG TABLET 1 Tablet ORAL DAILY Comments: NOT GIVEN IN HOSPITAL Anastrozole (Anastrozole) 1 MG TABLET 1 Tablet ORAL DAILY Comments: Last Taken: 03/17/17 Time: 0930AM Ezetimibe (Zetia) 10 MG TABLET 1 Tablet ORAL NIGHTLY Comments: Last Taken: 03/17/17 Time: 0930AM Fluticasone/Salmeterol (Advair 250-50 Diskus) 250 MCG-50 MCG/DOSE BLST.W.DEV 1 Puff Inhale through mouth TWICE DAILY Comments: NOT GIVEN IN HOSPITAL SYMBICORT GIVEN 03/17/17 @ 0930AM Tiotropium [place] (Spiriva) 18 MCG CAP.W.DEV 1 Capsule Inhale through mouth DAILY Comments: Last Taken: 03/17/17 Time: 0930AM Nebivolol HCl (Bystolic) 5 MG TABLET 1 Tablet ORAL DAILY Comments: Last Taken: 03/17/17 Time: 0930AM Aspirin (Ecotrin*) 81 MG TABLET.DR 1 Tablet ORAL DAILY Comments: NOT GIVEN IN HOSPITAL Dexlansoprazole (Dexilant) 30 MG CAP.DR.BP 1 Capsule ORAL DAILY Multiple Vitamin (Multivitamins) 1 EACH TABLET 1 Tablet ORAL DAILY Ubidecarenone (Coq-10) 100 MG CAPSULE 1 Capsule ORAL EVERY 48 HOURS (Every 2 days) Cyanocobalamin (Vitamin B-12) (B-12 Dots) 500 MCG TABLET 1 Tablet ORAL EVERY 48 HOURS (Every 2 days) Cholecalciferol (Vitamin D3) 1,000 UNIT TABLET 1 Tablet ORAL DAILY Calcium (Elemental-Fr Calcarb) (Calcium Carbonate) 600 MG CALCIUM (1,500 MG) TABLET 1 Tablet ORAL DAILY
[2018-06-04 22:29] VITALS: BP 100/80
[2018-06-05 06:20] VITALS: BP 98/60
--- NOTE | 2018-06-05 08:43 | PN- Housestaff ---
Harmony Duvall 06/05/18 0843: Subjective Follow-up For: Right sided malignant pleural effusion Subjective: Patient was seen and examined at bedside. She denies fever, chills, nausea, vomiting Review of Systems Constitutional: Reports: see HPI. Objective Last 24 Hrs of Vital Signs/I&O Vital Signs Date Time Temp Pulse Resp B/P B/P Pulse O2 O2 Flow FiO2 Mean Ox Delivery Rate 06/05 1523 98.4 69 20 100/60 98 06/05 1148 97 Nasal 3.0L Cannula 06/05 0817 91 112/64 06/05 0800 Nasal 3.0L Cannula 06/05 0620 97.6 67 20 98/60 97 Nasal Cannula 06/05 0000 Nasal 3.0L Cannula 06/04 2229 98.7 83 20 100/80 98 06/04 1948 95 Nasal 2.0L Cannula Intake & Output 06/05 1600 06/05 0800 06/05 0000 Intake Total 760 200 300 Output Total 0 20 Balance 760 180 300 Intake, IV 0 Intake, Oral 760 200 300 Number 0 Bowel Movements Output, Chest 20 Tube Drainage Output, Urine 0 Physical Exam General Appearance: Alert, Oriented X3, Cooperative Skin: No Rashes Cardiovascular: Regular Rate, Normal S1, Normal S2 Lungs: diminished breath sounds Abdomen: Normal Bowel Sounds, Soft, No Tenderness Extremities: No Edema, Normal Pulses Assessment/Plan Assessment: 82-year-old woman with past medical history lung adenocarcinoma status post wedge resection(chemotherapy, radiation), breast cancer, bladder cancer, coronary artery disease, hypertension, hyperlipidemia, COPD, GERD. Presented to emergency department with shortness of breath and pain in the right side of the chest. She is on 3 L of oxygen at home started 21 May. Problems list: 1. Right-sided pleural effusion 2.Lung cancer 3.Past medical history*bladder cancer breast cancer, CAD, hypertension, hyperlipidemia, COPD, GERD 1.Right-sided pleural effusion in setting of lung cancer: -s/p Chest tube placement -2 L of fluid drained so far -Imroved aearation on chest X-ray -Saturatinig well on 3L oxygen -TRC and nebs -Pulm recommendation appreciated. Will repeat chest CT on Thursday 2.History of lung adenocarcinoma status post wedge resection, chemo, and radiation: Outpatient management 3. Continue home medications for hypertension and hyperlipidemia DVT prophylaxis with subcutaneous heparin DNI DNR Problem List: 1. Lung cancer 2. Hypertension 3. Hypercholesterolemia 4. COPD (chronic obstructive pulmonary disease) 5. Hypoxia 6. Shortness of breath at rest 7. Pleural effusion Pain Ratin Pain Location: none Pain Goal: Remain pain free Pain Plan: pathway Tomorrow's Labs & Rationales: cbc and bep Edison Peña 06/05/18 1355: Attending MD Review Statement Attending Statement Attending MD Statement: examined this patient, discuss w/resident/PA/WAREHOUSE MANAGER, agreed w/resident/PA/WAREHOUSE MANAGER, reviewed EMR data (avail), discussed with nursing, discussed with case mgmt Attending Assessment/Plan: 82 yr old female with non small cell lung cancer s/p chemo, wedge resection right side, radiation who was seen recently in the ER on 05/21 for sob and was found to be hypoxic and was sent home on oxygen. Pt presented back to ER with worsening sob and was found to have worsening rt side pleural effusion. 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 Pt in ER had a pleural catheter placed on rt side and had 1 L fluid drained and the tube was clamped after that. Had another liter of fluid removed on 06/03, d/w pulmonary Dr Chiu today- he wants to leave the chest tube unclamped for now till tomorrow morning ( Thursday) and then clamp it. Repeat CT chest on Thursday AM. dw/ pt and pts family at bedside the care plan.
--- NOTE | 2018-06-05 11:01 | PN- Pulmonary ---
Subjective HPI/Critical Care Issues: Doing well chest tube drainage ongoing Objective Current Medications: Current Medications Sig/Juaquin Start time Last Medication Dose Route Stop Time Status Admin Acetaminophen 650 MG Q6P PRN 06/02 1100 AC 06/05 PO 0858 Albuterol Sulfate 3 ML Q4P PRN 06/02 1945 AC INH Alprazolam 0.25 MG TID PRN 06/02 1115 AC 06/04 PO 06/09 1114 2217 Anastrozole 1 MG DAILY 06/02 1136 AC 06/05 PO 0817 Atorvastatin Calcium 10 MG 1700 06/02 1700 AC 06/04 PO 1655 Budesonide/ 2 PUF BID 06/02 2100 AC 06/05 Formoterol Fumarate INH 0817 Calcium/Vitamin D 500 MG DAILY 06/02 1137 AC 06/05 PO 0817 Cyanocobalamin 1,000 MCG DAILY 06/02 1140 AC 06/05 PO 0817 Docusate Sodium 100 MG DAILY 06/05 1032 AC PO Ezetimibe 10 MG DAILY 06/02 1142 AC 06/05 PO 0817 Guaifenesin/Codeine 10 ML Q6P PRN 06/02 2000 AC 06/05 Phosphate PO 0858 Heparin Sodium 5,000 UNIT Q8 06/02 1400 AC 06/05 (Porcine) SC 0613 Magnesium Sulfate 1 GM Q2H 06/04 0845 DC 06/04 Dextrose/Water 100 ML IV 06/04 1244 1240 Multivitamins 1 TAB DAILY 06/02 1142 AC 06/05 Therapeutic PO 0817 Nebivolol 5 MG DAILY 06/02 1142 AC 06/05 PO 0817 Omeprazole 40 MG DAILY AC 06/02 1142 AC 06/05 PO 0613 Polyethylene Glycol 17 GM DAILY 06/05 1031 AC PO Senna/Docusate Sodium 2 TAB DAILY 06/05 1031 AC PO Sodium Chloride 2 SPRAY Q4P PRN 06/02 2345 AC PATRICIA Tiotropium [place] 1 PUF DAILY 06/02 1143 AC 06/05 INH 0817 Vital Signs & I&O Last 24 Hrs of Vitals and I&O: Vital Signs Date Time Temp Pulse Resp B/P B/P Pulse O2 O2 Flow FiO2 Mean Ox Delivery Rate 06/05 817 91 112/64 06/05 0800 Nasal 3.0L Cannula 06/05 0620 97.6 67 20 98/60 97 Nasal Cannula 06/05 0000 Nasal 3.0L Cannula 06/04 2229 98.7 83 20 100/80 98 06/04 1948 95 Nasal 2.0L Cannula 06/04 1434 98.3 78 20 98/60 90 Nasal 3.0L Cannula 06/04 1210 93 Nasal 3.0L Cannula Intake & Output 06/05 1600 06/05 0800 06/05 0000 Intake Total 200 300 Output Total 20 Balance 180 300 Intake, Oral 200 300 Output, Chest 20 Tube Drainage Impression/Plan Impression/Plan Impression/Plan: Gen.: in NAD ENT: Sclera anicteric Chest: Normal respiratory effort, decreased breath sounds, chest tube in place Cor: RRR, no extra sounds Abdomen: Soft, bowel sounds present, no tenderness, no rebound Extremities: Without clubbing, cyanosis, or asymmetric edema Neurology: Alert and oriented 3, no gross deficit 82 year old woman * large pleural effusion in the setting of non-small cell lung cancer * COPD Plan cont chest tube drainage for now Await studies Would need CT chest on thursday am will follow
[2018-06-05 15:23] VITALS: BP 100/60
[2018-06-05 22:16] VITALS: BP 110/60
[2018-06-06 06:20] VITALS: BP 108/56
[2018-06-06 09:34] LABS: ABSOLUTE BASOPHIL COUNT 0 /CUMM (0.0-0.2); ABSOLUTE EOSINOPHIL COUNT 0.1 /CUMM (0.0-0.7); ABSOLUTE LYMPH COUNT 0.4 /CUMM (1.2-3.4); ABSOLUTE MONOCYTE COUNT 0.6 /CUMM (0.10-0.60); MEAN CORPUSCULAR HGB CONC 31.8 G/DL (33.0-37.0); MEAN PLATELET VOLUME 8.1 FL (7.4-10.4)
[2018-06-06 09:47] LABS: ABSOLUTE GRANULOCYTE CT 6.1 /CUMM (1.4-6.5); BASOPHIL % 0 % (0.0-2.0); EOSINOPHIL % 1.4 % (0-5); HEMATOCRIT 34.9 % (37-47); MEAN CORPUSCULAR HGB 24.9 PG (27.0-31.0); MEAN CORPUSCULAR VOLUME 78.4 FL (81.0-99.0); PLATELET COUNT 568 /CUMM (130-400); RBC DISTRIBUTION WIDTH 16.4 % (11.5-14.5); RED BLOOD CELL CT 4.45 /CUMM (4.20-5.40); WHITE BLOOD CELL COUNT 7.1 /CUMM (4.8-10.8)
--- NOTE | 2018-06-06 10:02 | PN- Housestaff ---
Isai Caldera 06/06/18 0956: Subjective Follow-up For: Right sided malignant pleural effusion Subjective: Seen and examiend at bedside. Patient on 2L NC saturating well. Plan for repeat CT chest scan in the AM. Patient on 2L NC saturating well. Afebrile with normal vital signs. Clamped chest tube this monica. Denies any acute complaints. Review of Systems Constitutional: Denies: see HPI. Objective Last 24 Hrs of Vital Signs/I&O Vital Signs Date Time Temp Pulse Resp B/P B/P Pulse O2 O2 Flow FiO2 Mean Ox Delivery Rate 06/06 800 Nasal 2.0L Cannula 06/06 0751 80 108/56 06/06 0620 97.8 80 18 108/56 97 Nasal Cannula 06/06 0000 Nasal 2.0L Cannula 06/05 2216 97.7 75 20 110/60 98 Nasal Cannula 06/05 1853 95 Nasal 2.0L Cannula 06/05 1523 98.4 69 20 100/60 98 06/05 1148 97 Nasal 3.0L Cannula Intake & Output 06/06 1600 06/06 0800 06/06 0000 Intake Total 300 200 Output Total 0 Balance 300 200 Intake, Oral 300 200 Output, Chest 0 Tube Drainage Physical Exam General Appearance: Alert, Oriented X3, Cooperative Skin: No Rashes, No Breakdown HEENT: Mucous Membr. moist/pink Cardiovascular: Normal S1, Normal S2 Lungs: diminished breath sounds Abdomen: Normal Bowel Sounds, Soft, No Tenderness Vascular: Normal Pulses Current Medications: Current Medications Sig/Juaquin Start time Last Medication Dose Route Stop Time Status Admin Acetaminophen 650 MG Q6P PRN 06/02 1100 AC 06/06 PO 0558 Albuterol Sulfate 3 ML Q4P PRN 06/02 1945 AC INH Alprazolam 0.25 MG TID PRN 06/02 1115 AC 06/05 PO 06/09 1114 2021 Anastrozole 1 MG DAILY 06/02 1136 AC 06/06 PO 0750 Atorvastatin Calcium 10 MG 1700 06/02 1700 AC 06/05 PO 1636 Budesonide/ 2 PUF BID 06/02 2100 AC 06/06 Formoterol Fumarate INH 0752 Calcium/Vitamin D 500 MG DAILY 06/02 1137 AC 06/06 PO 0751 Cyanocobalamin 1,000 MCG DAILY 06/02 1140 AC 06/06 PO 0751 Docusate Sodium 100 MG DAILY 06/05 1032 AC 06/06 PO 0751 Ezetimibe 10 MG DAILY 06/02 1142 AC 06/06 PO 0751 Guaifenesin/Codeine 10 ML Q6P PRN 06/02 2000 AC 06/06 Phosphate PO 0625 Heparin Sodium 5,000 UNIT Q8 06/02 1400 AC 06/06 (Porcine) SC 0558 Multivitamins 1 TAB DAILY 06/02 1142 AC 06/06 Therapeutic PO 0751 Nebivolol 5 MG DAILY 06/02 1142 AC 06/06 PO 0751 Omeprazole 40 MG DAILY AC 06/02 1142 AC 06/06 PO 0558 Polyethylene Glycol 17 GM DAILY 06/05 1031 AC 06/06 PO 0750 Senna/Docusate Sodium 2 TAB DAILY 06/05 1031 AC 06/06 PO 0751 Sodium Chloride 2 SPRAY Q4P PRN 06/02 2345 AC PATRICIA Tiotropium [place] 1 PUF DAILY 06/02 1143 AC 06/06 INH 0753 Last 24 Hrs of Lab/Roland Results Last 24 Hrs of Labs/Mics: Laboratory Tests 06/06/18 0745: Anion Gap 6, Estimated GFR > 60, BUN/Creatinine Ratio 30.0 H, CBC w Diff NO MAN DIFF REQ, RBC 4.45, MCV 78.4 L, MCH 24.9 L, MCHC 31.8 L, RDW 16.4 H, MPV 8.1 , Gran % 85.0 H, Lymphocytes % 4.9 L, Monocytes % 8.7, Eosinophils % 1.4, Basophils % 0, Absolute Granulocytes 6.1, Absolute Lymphocytes 0.4 L, Absolute Monocytes 0.6, Absolute Eosinophils 0.1, Absolute Basophils 0 Assessment/Plan Assessment: 82-year-old woman with past medical history lung adenocarcinoma status post wedge resection(chemotherapy, radiation), breast cancer, bladder cancer, coronary artery disease, hypertension, hyperlipidemia, COPD, GERD. Presented to emergency department with shortness of breath and pain in the right side of the chest. She is on 3 L of oxygen at home started 21 May. CXR 06/04: Persistent right pleural effusion with loculated component at the right apex. The volume of pleural fluid in the right base is relatively small and decreased compared to 06/03/2018. No pneumothorax. - Overall, the aeration of the right lung has improved compared to 06/03/2018. 06/06: Dr. Chiu of pulmonology on board, repeat clamp of chest tube today. Repeat CT chest will be on Thursday in AM. Otherwise pt stable on 2L NC. PROBLEM LIST: 1. Right Sided Pleural Effusion 2. Lung CA 3. PMH Bladder CA, Breast CA, CAD, HTN, HLD, COPD, GERD Right sided Pleural Effusion in setting of Lung CA * s/p Chest tube placement; 2 L of fluid drained so far; cytology showing malignant cells * Imroved aearation on chest X-ray * Repeat CT Chest on Thursday * atinig well on 3L oxygen * TRC and nebs History of Lunga Adenocarcinoma s/p wedge resection/chemo/radiation * Continue outpatient management Continue all other home medications for HTN/HLD DVT prophylaxis with subcutaneous heparin Code Status: DNI DNR Problem List: 1. Hypertension 2. Bladder cancer 3. Lung cancer, upper lobe 4. Hypoxia 5. Pleural effusion Pain Ratin Pain Location: denies pain today Pain Goal: Remain pain free Pain Plan: as per pain pathway Tomorrow's Labs & Rationales: cbc bep Edison Peña 06/06/18 1339: Attending MD Review Statement Attending Statement Attending MD Statement: examined this patient, discuss w/resident/PA/HARDNESS INSPECTOR, agreed w/resident/PA/HARDNESS INSPECTOR, reviewed EMR data (avail), discussed with nursing Attending Assessment/Plan: 82 yr old female with non small cell lung cancer s/p chemo, wedge resection right side, radiation who was seen recently in the ER on 05/21 for sob and was found to be hypoxic and was sent home on oxygen. Pt presented back to ER with worsening sob and was found to have worsening rt side pleural effusion. 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 Pt in ER had a pleural catheter placed on rt side and had 1 L fluid drained and the tube was clamped after that. Had another liter of fluid removed on 06/03, d/w pulmonary Dr Chiu - clamped chest tube thursday morning till tomorrow morning ( Thursday) Repeat CT chest on Thursday AM. Based on the Chest CT finding we will make further management plan.
--- NOTE | 2018-06-06 13:58 | PN- Pulmonary ---
Subjective HPI/Critical Care Issues: Seen and examiend at bedside. Patient on 2L NC saturating well. Plan for repeat CT chest scan in the AM. Patient on 2L NC saturating well. Afebrile with normal vital signs. Clamped chest tube this mrnav. Denies any acute complaints. Review of Systems Constitutional: Denies: see HPI. Objective Current Medications: Current Medications Sig/Juaquin Start time Last Medication Dose Route Stop Time Status Admin Acetaminophen 650 MG Q6P PRN 06/02 1100 AC 06/06 PO 0558 Albuterol Sulfate 3 ML Q4P PRN 06/02 1945 AC 06/06 INH 1325 Alprazolam 0.25 MG TID PRN 06/02 1115 AC 06/05 PO 06/09 1114 2021 Anastrozole 1 MG DAILY 06/02 1136 AC 06/06 PO 0750 Atorvastatin Calcium 10 MG 1700 06/02 1700 AC 06/05 PO 1636 Budesonide/ 2 PUF BID 06/02 2100 AC 06/06 Formoterol Fumarate INH 0752 Calcium/Vitamin D 500 MG DAILY 06/02 1137 AC 06/06 PO 0751 Cyanocobalamin 1,000 MCG DAILY 06/02 1140 AC 06/06 PO 0751 Docusate Sodium 100 MG DAILY 06/05 1032 AC 06/06 PO 0751 Ezetimibe 10 MG DAILY 06/02 1142 AC 06/06 PO 0751 Guaifenesin/Codeine 10 ML Q6P PRN 06/02 2000 AC 06/06 Phosphate PO 0625 Heparin Sodium 5,000 UNIT Q8 06/02 1400 AC 06/06 (Porcine) SC 1340 Multivitamins 1 TAB DAILY 06/02 1142 AC 06/06 Therapeutic PO 0751 Nebivolol 5 MG DAILY 06/02 1142 AC 06/06 PO 0751 Omeprazole 40 MG DAILY AC 06/02 1142 AC 06/06 PO 0558 Polyethylene Glycol 17 GM DAILY 06/05 1031 AC 06/06 PO 0750 Senna/Docusate Sodium 2 TAB DAILY 06/05 1031 AC 06/06 PO 0751 Sodium Chloride 2 SPRAY Q4P PRN 06/02 2345 AC PATRICIA Tiotropium [place] 1 PUF DAILY 06/02 1143 AC 06/06 INH 0753 Vital Signs & I&O Last 24 Hrs of Vitals and I&O: Vital Signs Date Time Temp Pulse Resp B/P B/P Pulse O2 O2 Flow FiO2 Mean Ox Delivery Rate 06/06 1327 94 Nasal 2.0L Cannula 06/06 08 Nasal 2.0L Cannula 06/06 0751 80 108/56 06/06 0620 97.8 80 18 108/56 97 Nasal Cannula 06/06 0000 Nasal 2.0L Cannula 06/05 2216 97.7 75 20 110/60 98 Nasal Cannula 06/05 1853 95 Nasal 2.0L Cannula 06/05 1523 98.4 69 20 100/60 98 Intake & Output 06/06 1600 06/06 0800 06/06 0000 Intake Total 300 200 Output Total 0 Balance 300 200 Intake, Oral 300 200 Output, Chest 0 Tube Drainage Impression/Plan Impression/Plan Impression/Plan: Gen.: in NAD ENT: Sclera anicteric Chest: Normal respiratory effort, decreased breath sounds, chest tube in place Cor: RRR, no extra sounds Abdomen: Soft, bowel sounds present, no tenderness, no rebound Extremities: Without clubbing, cyanosis, or asymmetric edema Neurology: Alert and oriented 3, no gross deficit 82 year old woman * large pleural effusion in the setting of non-small cell lung cancer * COPD Plan Clamp tube Await studies Would need CT chest on thursday am will follow
[2018-06-06 14:01] VITALS: BP 98/58
[2018-06-06 15:00] VITALS: BP 110/60
[2018-06-06 22:01] VITALS: BP 102/60
[2018-06-07 06:20] VITALS: BP 106/68
--- NOTE | 2018-06-07 07:33 | PN- Oncology ---
Subjective Subjective: She feels that her breathing is a little worse today. She felt well prior to the chest tube being clamped. She feels chest tightness more when she is lying down. She denies any fever or chills. She has no other pain. She has baseline back pain. Review of Systems Constitutional: Denies: chills, fever. EENTM: Denies: blurred vision, double vision. Cardiovascular: Denies: chest pain. Respiratory: Reports: see HPI, short of breath. Gastrointestinal: Denies: constipation. Genitourinary: Denies: dysuria. Musculoskeletal: Reports: back pain. Skin: Denies: rash. Neurological/Psychological: Reports: anxiety. Denies: confusion. Hematologic/Endocrine: Denies: bruising, bleeding. Immunologic/Allergic: Denies: lymphadenopathy. All Other Systems: Reviewed and Negative Objective Vital Signs and I&Os Vital Signs Date Time Temp Pulse Resp B/P B/P Pulse O2 O2 Flow FiO2 Mean Ox Delivery Rate 06/07 0620 98.1 83 18 106/68 95 Nasal Cannula 06/07 0000 Nasal 2.0L Cannula 06/06 2201 98.9 71 20 102/60 96 Nasal Cannula 06/06 1500 110/60 06/06 1401 98.3 68 20 98/58 97 06/06 1327 94 Nasal 2.0L Cannula 06/06 0800 Nasal 2.0L Cannula 06/06 0751 80 108/56 Intake & Output 06/07 0806/07 0000 06/06 1600 06/06 0800 06/06 0000 06/05 1600 Intake Total 300 200 980 300 200 760 Output Total 200 0 0 Balance 300 200 780 300 200 760 Intake, IV 0 0 Intake, Oral 300 200 980 300 200 760 Number 0 0 Bowel Movements Output, Chest 0 Tube Drainage Output, Urine 200 0 Physical Exam General Appearance: no apparent distress, alert, awake, comfortable Head: atraumatic, normal appearance Ears, Nose, Throat: normal pharynx Respiratory: decreased breath sounds (in the right hemithorax), crackles, CT in place Cardiovascular: tachycardia Abdomen: normal bowel sounds, soft, non-tender Extremities: normal inspection, no edema Neurologic/Psychiatric: awake, alert, oriented x 3 Skin: intact, normal color, warm/dry Lymphatic: no anterior cervical shaunna Current Medications: Current Medications Sig/Juaquin Start time Last Medication Dose Route Stop Time Status Admin Acetaminophen 650 MG Q6P PRN 06/02 1100 AC 06/07 PO 0618 Albuterol Sulfate 3 ML Q4P PRN 06/02 1945 AC 06/06 INH 1325 Alprazolam 0.25 MG TID PRN 06/02 1115 AC 06/06 PO 06/09 1114 2101 Anastrozole 1 MG DAILY 06/02 1136 AC 06/06 PO 0750 Atorvastatin Calcium 10 MG 1700 06/02 1700 AC 06/06 PO 1650 Budesonide/ 2 PUF BID 06/02 2100 AC 06/06 Formoterol Fumarate INH 2101 Calcium/Vitamin D 500 MG DAILY 06/02 1137 AC 06/06 PO 0751 Cyanocobalamin 1,000 MCG DAILY 06/02 1140 AC 06/06 PO 0751 Docusate Sodium 100 MG DAILY 06/05 1032 AC 06/06 PO 0751 Ezetimibe 10 MG DAILY 06/02 1142 AC 06/06 PO 0751 Guaifenesin/Codeine 10 ML Q6P PRN 06/02 2000 AC 06/06 Phosphate PO 2101 Heparin Sodium 5,000 UNIT Q8 06/02 1400 AC 06/07 (Porcine) SC 0618 Multivitamins 1 TAB DAILY 06/02 1142 AC 06/06 Therapeutic PO 0751 Nebivolol 5 MG DAILY 06/02 1142 AC 06/06 PO 0751 Omeprazole 40 MG DAILY AC 06/02 1142 AC 06/07 PO 0617 Polyethylene Glycol 17 GM DAILY 06/05 1031 AC 06/06 PO 0750 Senna/Docusate Sodium 2 TAB DAILY 06/05 1031 AC 06/06 PO 0751 Sodium Chloride 2 SPRAY Q4P PRN 06/02 2345 AC PATRICIA Tiotropium [place] 1 PUF DAILY 06/02 1143 AC 06/06 INH 0753 Results Last 24 Hours of Lab Results: Laboratory Tests 06/07 06/06 0612 0745 Chemistry Sodium (137 - 145 mmol/L) Pending 131 L Potassium (3.5 - 5.1 mmol/L) Pending 4.9 Chloride (98 - 107 mmol/L) Pending 93 L Carbon Dioxide (22 - 30 mmol/L) Pending 32 H Anion Gap (5 - 16) Pending 6 BUN (7 - 17 mg/dL) Pending 12 Creatinine (0.5 - 1.0 mg/dL) Pending 0.4 L Estimated GFR (>60 ml/min) > 60 BUN/Creatinine Ratio (7 - 25 %) Pending 30.0 H Hematology CBC w Diff Pending NO MAN DIFF REQ WBC (4.8 - 10.8 /CUMM) Pending 7.1 RBC (4.20 - 5.40 /CUMM) Pending 4.45 Hgb (12.0 - 16.0 G/DL) Pending 11.1 L Hct (37 - 47 %) Pending 34.9 L MCV (81.0 - 99.0 FL) Pending 78.4 L MCH (27.0 - 31.0 PG) Pending 24.9 L MCHC (33.0 - 37.0 G/DL) Pending 31.8 L RDW (11.5 - 14.5 %) Pending 16.4 H Plt Count (130 - 400 /CUMM) Pending 568 H MPV (7.4 - 10.4 FL) Pending 8.1 Gran % (42.2 - 75.2 %) 85.0 H Lymphocytes % (20.5 - 51.1 %) 4.9 L Monocytes % (1.7 - 9.3 %) 8.7 Eosinophils % (0 - 5 %) 1.4 Basophils % (0.0 - 2.0 %) 0 Absolute Granulocytes (1.4 - 6.5 /CUMM) 6.1 Absolute Lymphocytes (1.2 - 3.4 /CUMM) 0.4 L Absolute Monocytes (0.10 - 0.60 /CUMM) 0.6 Absolute Eosinophils (0.0 - 0.7 /CUMM) 0.1 Absolute Basophils (0.0 - 0.2 /CUMM) 0 Assessment/Plan Assessment/Recommendations: Ms. Bowman is an 82-year-old female with metastatic lung cancer s/p chemoradiation for initial stage III disease and now gemcitabine who presented with increasing dyspnea. CT demonstrated significant right pleural effusion. She is status post thoracentesis with chest tube placement. Cytology is positive for adenocarcinoma. CT was clamped yesterday. Symptomatically she is a little worse today. She will undergo CT scan today. She will likely need PleuRx catheter placement given malignant pleural effusion and recurrent effusion. She will follow up with Dr. Fletcher for chemotherapy option. Malignant pleural effusion: -pending CT scan today -likely PleuRx catheter placement Metastatic lung cancer: -Follow up with Dr. Fletcher after discharge Goals of care: -Patient wish to continue with systemic therapy as prior discussion with Dr. Fletcher -No heroic intervention Please call [phone] with any questions or concerns. Problem List: 1. Lung cancer 2. Pleural effusion 3. COPD (chronic obstructive pulmonary disease)
--- NOTE | 2018-06-07 07:44 | PN- Housestaff ---
Joo Smallwood 06/07/18 0744: Subjective Follow-up For: Right side malignant pleural effusion Subjective: Patient seem and examine on bedside. She is complaining of heaviness in her chest, she also complaining of mild shortness of breathness compare to previous.She denies fever, chills, abdominla pain , constipation, diarrhea, Review of Systems Constitutional: Reports: see HPI. Objective Last 24 Hrs of Vital Signs/I&O Vital Signs Date Time Temp Pulse Resp B/P B/P Pulse O2 O2 Flow FiO2 Mean Ox Delivery Rate 06/07 0805 83 106/68 06/07 0800 Nasal 2.0L Cannula 06/07 0620 98.1 83 18 106/68 95 Nasal Cannula 06/07 0000 Nasal 2.0L Cannula 06/06 2201 98.9 71 20 102/60 96 Nasal Cannula 06/06 1500 110/60 06/06 1401 98.3 68 20 98/58 97 06/06 1327 94 Nasal 2.0L Cannula Intake & Output 06/07 1600 06/07 0800 06/07 0000 Intake Total 300 200 Output Total Balance 300 200 Intake, Oral 300 200 Physical Exam General Appearance: Alert, Oriented X3, Cooperative, No Acute Distress Cardiovascular: Regular Rate, Normal S1, Normal S2, No Murmurs Lungs: Normal Air Movement, decrease air entery on right side lung and left lung apex Abdomen: Normal Bowel Sounds, Soft, No Tenderness, No Hepatospenomegaly Extremities: No Cyanosis, No Edema, Normal Pulses, No Tenderness/Swelling, clubbing of nails Assessment/Plan Assessment: 82-year-old woman with past medical history lung adenocarcinoma status post wedge resection(chemotherapy, radiation), breast cancer, bladder cancer, coronary artery disease, hypertension, hyperlipidemia, COPD, GERD. Presented to emergency department with shortness of breath and pain in the right side of the chest. She is on 3 L of oxygen at home started 21 May. At the time of presentation to emergency department her vitals and labs are given below. Vitals: Blood pressure 131/97, heart rate 70, respiratory rate 20, temperature 97.2, SaO2 94%. Labs; CBC WBC: 7.1, Hgb/hematocrit 11.9/36.8 Serum electrolytes are significant for sodium 132. Pleural fluid cytology WBC 1000, mesothelial cell 22, RBC 429, fluid protein 4.2 , LDH 387 Problems list: *Right-sided pleural effusion *Lung cancer Past medical history of bladder cancer breast cancer, CAD, hypertension, hyperlipidemia, COPD, GERD Right-sided pleural effusion: -3 L of fluid were present -Chest tube placed -2100ml of fluid drained so far -Patient CT scan is done today -Report shows:1. Moderate pulmonary emphysema. 2. Large mass of right hilum obstructs the right upper lobe bronchi and right upper lobe remains collapsed. The pulmonary and pleural-based nodules remain unchanged compared to 05/21/2018. Also, although a pleural drainage catheter is present in the inferior right hemithorax, the size of the moderate, loculated right pleural effusion is not appreciably changed compared to 05/21/2018. 3. The mediastinal lymphadenopathy is stable compared to 05/21/2018. 4. Atherosclerotic disease of coronary arteries and thoracic aorta. Pulmonary arteries are enlarged, suggestive of pulmonary arterial hypertension. -We will follow-up pulmonology recommendation -She is on 2 L oxygen and saturation is good -Nebulization will continue Pulmonology recommendation appreciated: -Advised PleurX catheter tommorrow - Patient will be NPO from breakfast tomorrow morning -No further drainage of chest tube - chest tube willl be clamped. -Heparin hold from tonight *History of lung adenocarcinoma status post wedge resection, chemo, and radiation: -Patient will follow up on outpatient basis -Chemotherapy will done on outpatient basis *DNI/DNR *DVT prophylaxis with subcutaneous heparin hold for time being *History of breast cancer, on anastrozole -History of bladder cancer -COPD -CAD -Hypertension -Hyperlipidemia Problem List: 1. Lung cancer 2. Bladder cancer 3. Breast cancer 4. COPD (chronic obstructive pulmonary disease) 5. Pleural effusion 6. Shortness of breath at rest 7. Hypoxia Pain Ratin Pain Location: no pain Pain Goal: Remain pain free Pain Plan: pain management patehway Tomorrow's Labs & Rationales: Brad Marcelino 06/07/18 1210: Attending MD Review Statement Attending Statement Attending MD Statement: examined this patient, discuss w/resident/PA/MEDICAL REVIEW SPECIALIST, agreed w/resident/PA/MEDICAL REVIEW SPECIALIST, discussed with family, reviewed EMR data (avail), discussed with nursing, discussed with case mgmt, reviewed images, amended to note Attending Assessment/Plan: 82 yr old female with non small cell lung cancer s/p chemo, wedge resection right side, radiation who was seen recently in the ER on 05/21 for sob and was found to be hypoxic and was sent home on oxygen. Pt presented back to ER with worsening sob and was found to have worsening rt side pleural effusion. Hypoxia with Worsening rt side pleural effusion in pt with Lung cancer- malignant pleural effusion-recurrent. Hemodynamcially stable on oxygen supplementation. Follow Chest CT and pulmoanry recommendations. Possible plan for pleurex catheter if ok with pulmonary. Oncology f/u. Plan for chemotherapy as per oncology. gi/dvt prophyalxis gi/dvt prophyalxis
--- NOTE | 2018-06-07 08:28 | PN- Pulmonary ---
See Addendum Subjective HPI/Critical Care Issues: pt seen and examined awaiting ct chest this am chest tube clamped afebrile on oxygen hemodynamically stable no n/v/d/c no cp no graham Objective Current Medications: Current Medications Sig/Juaquin Start time Last Medication Dose Route Stop Time Status Admin Acetaminophen 650 MG Q6P PRN 06/02 1100 AC 06/07 PO 0618 Albuterol Sulfate 3 ML Q4P PRN 06/02 1945 AC 06/06 INH 1325 Alprazolam 0.25 MG TID PRN 06/02 1115 AC 06/06 PO 06/09 1114 2101 Anastrozole 1 MG DAILY 06/02 1136 AC 06/07 PO 0805 Atorvastatin Calcium 10 MG 1700 06/02 1700 AC 06/06 PO 1650 Budesonide/ 2 PUF BID 06/02 2100 AC 06/07 Formoterol Fumarate INH 0807 Calcium/Vitamin D 500 MG DAILY 06/02 1137 AC 06/07 PO 0805 Cyanocobalamin 1,000 MCG DAILY 06/02 1140 AC 06/07 PO 0805 Docusate Sodium 100 MG DAILY 06/05 1032 AC 06/07 PO 0805 Ezetimibe 10 MG DAILY 06/02 1142 AC 06/07 PO 0805 Guaifenesin/Codeine 10 ML Q6P PRN 06/02 2000 AC 06/06 Phosphate PO 2101 Heparin Sodium 5,000 UNIT Q8 06/02 1400 AC 06/07 (Porcine) SC 0618 Multivitamins 1 TAB DAILY 06/02 1142 AC 06/07 Therapeutic PO 0805 Nebivolol 5 MG DAILY 06/02 1142 AC 06/07 PO 0805 Omeprazole 40 MG DAILY AC 06/02 1142 AC 06/07 PO 0617 Polyethylene Glycol 17 GM DAILY 06/05 1031 AC 06/07 PO 0805 Senna/Docusate Sodium 2 TAB DAILY 06/05 1031 AC 06/07 PO 0804 Sodium Chloride 2 SPRAY Q4P PRN 06/02 2345 AC PATRICIA Tiotropium [place] 1 PUF DAILY 06/02 1143 AC 06/07 INH 0811 Vital Signs & I&O Last 24 Hrs of Vitals and I&O: Vital Signs Date Time Temp Pulse Resp B/P B/P Pulse O2 O2 Flow FiO2 Mean Ox Delivery Rate 06/07 08 83 106/68 06/07 0620 98.1 83 18 106/68 95 Nasal Cannula 06/07 0000 Nasal 2.0L Cannula 06/06 2201 98.9 71 20 102/60 96 Nasal Cannula 06/06 1500 110/60 06/06 1401 98.3 68 20 98/58 97 06/06 1327 94 Nasal 2.0L Cannula Intake & Output 06/07 1600 06/07 0800 06/07 0000 Intake Total 300 200 Output Total Balance 300 200 Intake, Oral 300 200 Exam Other Physical Findings: [id number] heent-o2 cvs-s1,s2 lungs-right sided catheter, bs diminished on right abd-soft,bs+ ext-without edema Results Last 24 Hrs of Lab Results: Laboratory Tests 06/07/18 0612: Sodium Pending, Potassium Pending, Chloride Pending, Carbon Dioxide Pending, Anion Gap Pending, BUN Pending, Creatinine Pending, BUN/Creatinine Ratio Pending , CBC w Diff Pending, WBC Pending, RBC Pending, Hgb Pending, Hct Pending, MCV Pending, MCH Pending, MCHC Pending, RDW Pending, Plt Count Pending, MPV Pending Impression/Plan Impression/Plan Impression/Plan: Impression 82 year old woman * malignant pleural effusion * COPD Plan -s/p thoracentesis with insertion of an indwelling pleural catheter -CT chest this am to evaluate re-accumulation of pleural fluid after chest tube clamping, will determine need for PleurX catheter based on CT and clinical course -TRC/Nebs -continue inhalers -continue oxygen supplementation to goal fio2 >88% -f/u oncology recommendations -At home - takes Advair/Spiriva/Proair DVT prophylaxis at all times DNR/DNI
[2018-06-07 08:34] LABS: ABSOLUTE BASOPHIL COUNT 0 /CUMM (0.0-0.2); ABSOLUTE EOSINOPHIL COUNT 0.1 /CUMM (0.0-0.7); ABSOLUTE GRANULOCYTE CT 5.7 /CUMM (1.4-6.5); ABSOLUTE LYMPH COUNT 0.5 /CUMM (1.2-3.4); ABSOLUTE MONOCYTE COUNT 0.6 /CUMM (0.10-0.60); BASOPHIL % 0.1 % (0.0-2.0); EOSINOPHIL % 1.7 % (0-5); GRANULOCYTE % 82.8 % (42.2-75.2); HEMATOCRIT 35.9 % (37-47); MEAN CORPUSCULAR HGB 24.6 PG (27.0-31.0); MEAN CORPUSCULAR HGB CONC 31.4 G/DL (33.0-37.0); MEAN CORPUSCULAR VOLUME 78.5 FL (81.0-99.0); MEAN PLATELET VOLUME 8.1 FL (7.4-10.4); PLATELET COUNT 609 /CUMM (130-400); RBC DISTRIBUTION WIDTH 16.5 % (11.5-14.5); RED BLOOD CELL CT 4.57 /CUMM (4.20-5.40); WHITE BLOOD CELL COUNT 6.8 /CUMM (4.8-10.8)
--- NOTE | 2018-06-07 10:30 | CT SCAN REPORT ---
EXAMINATION: CT CHEST WITHOUT CONTRAST CLINICAL INFORMATION: Evaluate for reaccumulation of right pleural effusion. COMPARISON: Chest CT from 05/21/2018. TECHNIQUE: Multidetector volumetric CT imaging of the chest was done. Axial MIP volume rendering provided. Sagittal and coronal reformatted images were obtained. DLP: 158 mGy-cm FINDINGS: LUNGS AND PLEURA: Pleural drainage catheter in the inferior right hemithorax. Moderate right pleural effusion has a loculated component overlying the right apex and lateral right upper lobe. The amount of pleural fluid is similar compared to 05/21/2018. Given that the patient had thoracentesis on 06/02/2018, this appears to represent reaccumulation of some of the previously drained fluid. Again noted is the large mass of the right hilum obstructing bronchi to the right upper lobe, which remains collapsed. Again noted are pulmonary and pleural-based nodules of the right hemithorax, unchanged compared to 05/21/2018. The right pleural effusion produces compressive atelectasis of the right lower lobe and right middle lobe. Moderate centrilobular and paraseptal emphysema. No new findings in the right or left lung compared the prior exam. No pneumothorax. MEDIASTINUM: Severe atherosclerosis of coronary arteries. Main pulmonary artery is 3.4 cm diameter. The pulmonary arterial enlargement is suggestive of chronic arterial hypertension. Atherosclerosis of thoracic aorta without aneurysm. Trace pericardial effusion. The esophagus has normal wall thickness. Thyroid gland is grossly unremarkable. LYMPHATICS: No axillary lymphadenopathy. The largest lower right paratracheal lymph node is 1.6 cm short axis dimension, unchanged. Also, stable lymphadenopathy is present in the subcarinal region. UPPER ABDOMEN: No acute findings in the partially visualized upper abdomen. SKELETAL AND CHEST WALL: Dextroscoliosis of the degenerated thoracic spine. No aggressive osseous lesions. Old, healed fracture right lateral sixth rib. IMPRESSION: 1. Moderate pulmonary emphysema. 2. Large mass of right hilum obstructs the right upper lobe bronchi and right upper lobe remains collapsed. The pulmonary and pleural-based nodules remain unchanged compared to 05/21/2018. Also, although a pleural drainage catheter is present in the inferior right hemithorax, the size of the moderate, loculated right pleural effusion is not appreciably changed compared to 05/21/2018. 3. The mediastinal lymphadenopathy is stable compared to 05/21/2018. 4. Atherosclerotic disease of coronary arteries and thoracic aorta. Pulmonary arteries are enlarged, suggestive of pulmonary arterial hypertension.
[2018-06-07 14:29] VITALS: BP 102/70
[2018-06-07 22:12] VITALS: BP 94/50
[2018-06-08 06:47] VITALS: BP 110/70
--- NOTE | 2018-06-08 06:48 | PN- Oncology ---
Subjective Subjective: Slightly short of breath, otherwise no change in 12 point review of systems Objective Vital Signs and I&Os Vital Signs Date Time Temp Pulse Resp B/P B/P Pulse O2 O2 Flow FiO2 Mean Ox Delivery Rate 06/08 0000 Nasal 1.0L Cannula 06/07 2212 98.9 77 20 94/50 93 Nasal 1.0L Cannula 06/07 1835 97 Nasal 2.0L Cannula 06/07 1429 97.6 71 20 102/70 95 Nasal 2.0L Cannula 06/07 1209 94 Nasal 2.0L Cannula 06/07 0805 83 106/68 06/07 08 Nasal 2.0L Cannula Intake & Output 06/08 0806/08 0000 06/07 1600 06/07 0806/07 0000 06/06 1600 Intake Total 100 360 300 200 980 Output Total 0 200 Balance 100 360 300 200 780 Intake, IV 0 0 Intake, Oral 100 360 300 200 980 Number 0 0 Bowel Movements Output, Urine 0 200 Gen.: in NAD ENT: Sclera anicteric Chest: Normal respiratory effort, decreased breath sounds Cor: RRR, no extra sounds Abdomen: Soft, bowel sounds present, no tenderness, no rebound Extremities: Without clubbing, cyanosis, or asymmetric edema Neurology: Alert and oriented 3, M Current Medications: Current Medications Sig/Juaquin Start time Last Medication Dose Route Stop Time Status Admin Acetaminophen 650 MG Q6P PRN 06/02 1100 AC 06/07 PO 211 Albuterol Sulfate 3 ML Q4P PRN 06/02 1945 AC 06/06 INH 1325 Alprazolam 0.25 MG TID PRN 06/02 1115 AC 06/07 PO 06/09 1114 2116 Anastrozole 1 MG DAILY 06/02 1136 AC 06/07 PO 08 Atorvastatin Calcium 10 MG 1700 06/02 1700 AC 06/07 PO 1717 Budesonide/ 2 PUF BID 06/02 2100 AC 06/07 Formoterol Fumarate INH 2116 Calcium/Vitamin D 500 MG DAILY 06/02 1137 AC 06/07 PO 08 Cyanocobalamin 1,000 MCG DAILY 06/02 1140 AC 06/07 PO 0805 Docusate Sodium 100 MG DAILY 06/05 1032 AC 06/07 PO 0805 Ezetimibe 10 MG DAILY 06/02 1142 AC 06/07 PO 0805 Guaifenesin/Codeine 10 ML Q6P PRN 06/02 2000 AC 06/07 Phosphate PO 2115 Heparin Sodium 5,000 UNIT Q8 06/02 1400 DC 06/07 (Porcine) LA 06/07 2355 1422 Multivitamins 1 TAB DAILY 06/02 1142 AC 06/07 Therapeutic PO 0805 Nebivolol 5 MG DAILY 06/02 1142 AC 06/07 PO 0805 Omeprazole 40 MG DAILY AC 06/02 1142 AC 06/08 PO 0636 Patient Medication 1 ED ONE ONE 06/07 1045 DC Teaching ED 06/07 1046 Polyethylene Glycol 17 GM DAILY 06/05 1031 AC 06/07 PO 0805 Senna/Docusate Sodium 2 TAB DAILY 06/05 1031 AC 06/07 PO 0804 Sodium Chloride 2 SPRAY Q4P PRN 06/02 2345 AC PATRICIA Tiotropium [place] 1 PUF DAILY 06/02 1143 AC 06/07 INH 0811 Results Last 24 Hours of Lab Results: Pleural fluid cytology-positive Assessment/Plan Assessment/Recommendations: Advanced lung cancer-anticipate Pleurx catheter placement Recommend recommend Follow-up my office for systemic chemotherapy therapy
--- NOTE | 2018-06-08 07:00 | PN- Housestaff ---
Joo Smallwood 06/08/18 0700: Subjective Follow-up For: Malganant pleural effusion in setting of lung cancer Subjective: Patient seen and examined at bedside. She was complaining of mild shortness of breath. She denies fever, chills, chest pain, palpitation, abdominal pain, diarrhea, constipation, burning micturition. Review of Systems Constitutional: Reports: see HPI. Objective Last 24 Hrs of Vital Signs/I&O Vital Signs Date Time Temp Pulse Resp B/P B/P Pulse O2 O2 Flow FiO2 Mean Ox Delivery Rate 06/08 0856 82 106/60 06/08 0800 Nasal 1.0L Cannula 06/08 0647 98.3 72 20 110/70 84 06/08 0000 Nasal 1.0L Cannula 06/07 2212 98.9 77 20 94/50 93 Nasal 1.0L Cannula 06/07 1835 97 Nasal 2.0L Cannula 06/07 1429 97.6 71 20 102/70 95 Nasal 2.0L Cannula 06/07 1209 94 Nasal 2.0L Cannula Intake & Output 06/08 1600 06/08 0800 06/08 0000 Intake Total 100 Output Total Balance 100 Intake, Oral 100 Patient 119 lb 118 lb Weight Physical Exam General Appearance: Alert, Oriented X3, Cooperative, No Acute Distress Cardiovascular: Regular Rate, Normal S1, Normal S2, No Murmurs Lungs: Decrease air entery on the left upper and right upper and lower lobe Abdomen: Normal Bowel Sounds, Soft, No Tenderness, No Hepatospenomegaly Extremities: No Cyanosis, No Edema, Normal Pulses, No Tenderness/Swelling, Clubbing of nails. Assessment/Plan Assessment: 82-year-old woman with past medical history lung adenocarcinoma status post wedge resection(chemotherapy, radiation), breast cancer, bladder cancer, coronary artery disease, hypertension, hyperlipidemia, COPD, GERD. Presented to emergency department with shortness of breath and pain in the right side of the chest. She is on 3 L of oxygen at home started 21 May. At the time of presentation to emergency department her vitals and labs are given below. Vitals: Blood pressure 131/97, heart rate 70, respiratory rate 20, temperature 97.2, SaO2 94%. Labs; CBC WBC: 7.1, Hgb/hematocrit 11.9/36.8 Serum electrolytes are significant for sodium 132. Pleural fluid cytology WBC 1000, mesothelial cell 22, RBC 429, fluid protein 4.2 , LDH 387 Problems list: *Right-sided pleural effusion *Lung cancer Past medical history of bladder cancer breast cancer, CAD, hypertension, hyperlipidemia, COPD, GERD Right-sided pleural effusion: -2100 mL of fluid is drained -Patient will go for procedure for permanent placement of catheter for pleural effusion -PleurX catheter catheter was replaced by Dr. Obando CT scan of the chest: -Report shows:1. Moderate pulmonary emphysema. 2. Large mass of right hilum obstructs the right upper lobe bronchi and right upper lobe remains collapsed. The pulmonary and pleural-based nodules remain unchanged compared to 05/21/2018. Also, although a pleural drainage catheter is present in the inferior right hemithorax, the size of the moderate, loculated right pleural effusion is not appreciably changed compared to 05/21/2018. 3. The mediastinal lymphadenopathy is stable compared to 05/21/2018. 4. Atherosclerotic disease of coronary arteries and thoracic aorta. Pulmonary arteries are enlarged, suggestive of pulmonary arterial hypertension. -We will follow-up pulmonology recommendation -She is on 2 L oxygen and saturation is good -Nebulization will continue Pulmonology recommendation appreciated: -PleurX catheter placed today -Heparin hold will be continued tomorrow morning *History of lung adenocarcinoma status post wedge resection, chemo, and radiation: -Patient will follow up on outpatient basis -Chemotherapy will done on outpatient basis *DNI/DNR *DVT prophylaxis with subcutaneous heparin hold for time being *History of breast cancer, on anastrozole -History of bladder cancer -COPD -CAD -Hypertension -Hyperlipidemia Problem List: 1. Lung cancer 2. Breast cancer 3. COPD (chronic obstructive pulmonary disease) 4. Pleural effusion 5. Shortness of breath at rest 6. Hypoxia Pain Ratin Pain Location: No pain Pain Goal: Remain pain free Pain Plan: Pain management pathway Tomorrow's Labs & Rationales: Brad Motta 06/08/18 1111: Attending MD Review Statement Attending Statement Attending MD Statement: examined this patient, discuss w/resident/PA/VOCATIONAL REHABILITATION SPECIALIST, agreed w/resident/PA/VOCATIONAL REHABILITATION SPECIALIST, discussed with family, reviewed EMR data (avail), discussed with nursing, discussed with case mgmt, reviewed images, amended to note Attending Assessment/Plan: 82 yr old female with non small cell lung cancer s/p chemo, wedge resection right side, radiation who was seen recently in the ER on 05/21 for sob and was found to be hypoxic and was sent home on oxygen. Pt presented back to ER with worsening sob and was found to have worsening rt side pleural effusion. Hypoxia with recurrent pleural effusion in pt with Lung cancer- malignant pleural effusion. Hemodynamcially stable on oxygen supplementation with chest tube intact. Afebrile. Follow pulmoanry recommendations. Plan for pleurex catheter today as per pulmonary. Oncology f/u. Plan for chemotherapy as per oncology as outpatient. Discharge recommendations based on pulmonary and oncology input. gi/dvt prophyalxis gi/dvt prophyalxis
--- NOTE | 2018-06-08 11:55 | PN- Pulmonary ---
Subjective HPI/Critical Care Issues: pt seen and examined this morning. she is awaiting pleurx catheter placement. she feels dyspneic with exertion and is aware that she feels that her effusion has re-accumulated. no n/v/d/c, no cp, no graham. Objective Current Medications: Current Medications Sig/Juaquin Start time Last Medication Dose Route Stop Time Status Admin Acetaminophen 650 MG Q6P PRN 06/02 1100 AC 06/08 PO 0851 Albuterol Sulfate 3 ML Q4P PRN 06/02 1945 AC 06/06 INH 1325 Alprazolam 0.25 MG TID PRN 06/02 1115 AC 06/07 PO 06/09 1114 2116 Anastrozole 1 MG DAILY 06/02 1136 AC 06/08 PO 0856 Atorvastatin Calcium 10 MG 1700 06/02 1700 AC 06/07 PO 1717 Budesonide/ 2 PUF BID 06/02 2100 AC 06/08 Formoterol Fumarate INH 0859 Calcium/Vitamin D 500 MG DAILY 06/02 1137 AC 06/08 PO 0858 Cyanocobalamin 1,000 MCG DAILY 06/02 1140 AC 06/08 PO 0857 Docusate Sodium 100 MG DAILY 06/05 1032 AC 06/07 PO 0805 Ezetimibe 10 MG DAILY 06/02 1142 AC 06/08 PO 0857 Fentanyl Citrate 0 .STK-MED ONE 06/08 1057 DC .ROUTE Guaifenesin/Codeine 10 ML Q6P PRN 06/02 2000 AC 06/08 Phosphate PO 0904 Heparin Sodium 5,000 UNIT Q8 06/02 1400 DC 06/07 (Porcine) SC 06/07 2355 1422 Multivitamins 1 TAB DAILY 06/02 1142 AC 06/08 Therapeutic PO 0857 Nebivolol 5 MG DAILY 06/02 1142 AC 06/08 PO 0856 Omeprazole 40 MG DAILY AC 06/02 1142 AC 06/08 PO 0636 Polyethylene Glycol 17 GM DAILY 06/05 1031 AC 06/07 PO 0805 Senna/Docusate Sodium 2 TAB DAILY 06/05 1031 AC 06/07 PO 0804 Sodium Chloride 2 SPRAY Q4P PRN 06/02 2345 AC PATRICIA Tiotropium [place] 1 PUF DAILY 06/02 1143 AC 06/08 INH 0858 Vital Signs & I&O Last 24 Hrs of Vitals and I&O: Vital Signs Date Time Temp Pulse Resp B/P B/P Pulse O2 O2 Flow FiO2 Mean Ox Delivery Rate 06/08 0856 82 106/60 06/08 08 Nasal 1.0L Cannula 06/08 0647 98.3 72 20 110/70 84 06/08 0000 Nasal 1.0L Cannula 06/07 2212 98.9 77 20 94/50 93 Nasal 1.0L Cannula 06/07 1835 97 Nasal 2.0L Cannula 06/07 1429 97.6 71 20 102/70 95 Nasal 2.0L Cannula 06/07 1209 94 Nasal 2.0L Cannula Intake & Output 06/08 1600 06/08 0800 06/08 0000 Intake Total 100 Output Total Balance 100 Intake, Oral 100 Patient 119 lb 118 lb Weight Exam Other Physical Findings: gen-aaox3 heent-o2 cvs-s1,s2 lungs-right sided catheter, bs diminished on right abd-soft,bs+ ext-without edema Impression/Plan Impression/Plan Impression/Plan: Impression 82 year old woman * malignant pleural effusion * COPD Plan -for PleurX catheter today - please obtain social work consultation for visiting nursing/drainage training at home -TRC/Nebs -continue inhalers -continue oxygen supplementation to goal fio2 >88% -f/u oncology recommendations -At home - takes Advair/Spiriva/Proair DVT prophylaxis at all times DNR/DNI
--- NOTE | 2018-06-08 12:26 | RADIOLOGY REPORT ---
EXAMINATION: XR PORTABLE CHEST CLINICAL INFORMATION: Status post pleural catheter insertion. COMPARISON: CT scan of the chest 06/07/2018 TECHNIQUE: Portable frontal view of the chest was obtained. FINDINGS: There has been interval exchange of the pigtail catheter in the right lung base for a left-sided chest tube with decrease of the pleural effusion in the right lung base. There is continued left upper lobe collapse/opacification. There is likely a small left pleural effusion. The cardiomediastinal silhouette is grossly stable. IMPRESSION: Interval placement of a left basilar thoracostomy tube with decrease in the left basilar pleural effusion. Persistent opacification/collapse of the left upper lung field.
[2018-06-08 13:47] VITALS: BP 100/70
--- NOTE | 2018-06-08 16:15 | Cons- Thoracic Surgery ---
General Information and HPI Consulting Request Date of Consult: 06/07/18 Requested By: Tiffany THURMAN,Brad Reason for Consult: Management of malignant right pleural effusion Source of Information: patient, family, old records, PCP Exam Limitations: no limitations History of Present Illness: Patient is very well-known to me. I have treated her for 3 different thoracic malignancies. Her most recent issue is with an unresectable right lung cancer for which she is receiving chemotherapy. She recently developed significant dyspnea and was admitted to the hospital with a large right pleural effusion. Drainage has been done and the cytology is positive for cancer cells. She continues to drain a fairly high volume and thoracic surgical opinion is asked for possible Pleurx catheter management of her malignant symptomatic pleural effusion. Allergies/Medications Allergies: Coded Allergies: ciprofloxacin (From CIPRO) (SWOLLEN FACE 03/03/18) hydromorphone (nausea 03/02/18) ragweed pollen (UNKNOWN 03/02/18) Home Med List: Anastrozole 1 MG TABLET 1 TAB PO DAILY BREAST CANCER (Reported) Aspirin (Ecotrin*) 81 MG TABLET.DR 1 TAB PO DAILY PROPHO (Reported) Calcium (Elemental-Fr Calcarb) (Calcium Carbonate) 600 MG CALCIUM (1,500 MG) TABLET 1 TAB PO DAILY SUPPLEMENT (Reported) Cholecalciferol (Vitamin D3) 1,000 UNIT TABLET 1 TAB PO DAILY VITAMIN SUPPORT (Reported) Cyanocobalamin (Vitamin B-12) (B-12 Dots) 500 MCG TABLET 1 TAB PO Q48 VITAMIN SUPPORT (Reported) Dexlansoprazole (Dexilant) 30 MG CAP.DR.BP 1 CAP PO DAILY GI (Reported) Ezetimibe (Zetia) 10 MG TABLET 1 TAB PO NIGHTLY CHOLESTEROL (Reported) Fluticasone/Salmeterol (Advair 250-50 Diskus) 250 MCG-50 MCG/DOSE BLST.W.DEV 1 PUF INH BID COPD (Reported) Multiple Vitamin (Multivitamins) 1 EACH TABLET 1 TAB PO DAILY SUPPLEMENT ( Reported) Nebivolol HCl (Bystolic) 5 MG TABLET 1 TAB PO DAILY HTN (Reported) Pitavastatin Calcium (Livalo) 4 MG TABLET 1 TAB PO DAILY CHOLESTEROL ( Reported) Tiotropium [place] (Spiriva) 18 MCG CAP.W.DEV 1 CAP INH DAILY COPD (Reported) Ubidecarenone (Coq-10) 100 MG CAPSULE 1 CAP PO Q48 SUPPLEMENT (Reported) Current Medications: Current Medications Sig/Juaquin Start time Last Medication Dose Route Stop Time Status Admin Acetaminophen 650 MG Q6P PRN 06/02 1100 AC 06/08 PO 0851 Albuterol Sulfate 3 ML Q4P PRN 06/02 1945 AC 06/06 INH 1325 Alprazolam 0.25 MG TID PRN 06/02 1115 AC 06/07 PO 06/09 1114 2116 Anastrozole 1 MG DAILY 06/02 1136 AC 06/08 PO 0856 Atorvastatin Calcium 10 MG 1700 06/02 1700 AC 06/07 PO 1717 Budesonide/ 2 PUF BID 06/02 2100 AC 06/08 Formoterol Fumarate INH 0859 Calcium/Vitamin D 500 MG DAILY 06/02 1137 AC 06/08 PO 0858 Cefazolin Sodium 1,000 MG IQ8 06/08 1600 AC IV 06/09 0001 Cyanocobalamin 1,000 MCG DAILY 06/02 1140 AC 06/08 PO 0857 Docusate Sodium 100 MG DAILY 06/05 1032 AC 06/07 PO 0805 Ezetimibe 10 MG DAILY 06/02 1142 AC 06/08 PO 0857 Fentanyl Citrate 0 .STK-MED ONE 06/08 1057 DC .ROUTE Guaifenesin/Codeine 10 ML Q6P PRN 06/02 2000 AC 06/08 Phosphate PO 0904 Heparin Sodium 5,000 UNIT Q8 06/09 0600 AC (Porcine) SC Multivitamins 1 TAB DAILY 06/02 1142 AC 06/08 Therapeutic PO 0857 Nebivolol 5 MG DAILY 06/02 1142 AC 06/08 PO 0856 Omeprazole 40 MG DAILY AC 06/02 1142 AC 06/08 PO 0636 Oxycodone/ 1 TAB Q4-6 PRN PRN 06/08 1245 AC Acetaminophen PO Oxycodone/ 2 TAB Q4-6 PRN PRN 06/08 1245 AC Acetaminophen PO Polyethylene Glycol 17 GM DAILY 06/05 1031 AC 06/07 PO 0805 Senna/Docusate Sodium 2 TAB DAILY 06/05 1031 AC 06/07 PO 0804 Sodium Chloride 2 SPRAY Q4P PRN 06/02 2345 AC PATRICIA Tiotropium [place] 1 PUF DAILY 06/02 1143 AC 06/08 INH 0858 Past History Medical History Blood Transfusion Hx: No Neurological: NONE EENT: NONE Cardiovascular: CAD, hypertension, hyperlipidemia, CARDIAC STENTX1 Respiratory: COPD Gastrointestinal: GERD Hepatic: NONE Renal: NONE Musculoskeletal: sciatica Psychiatric: NONE Endocrine: NONE Blood Disorders: NONE Cancer(s): bladder cancer, breast cancer, 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 Home Who Do You Live With? spouse Services at Home: None Smoking Status: Former Smoker Functional Ability ADLs Independent: dressing, eating, toileting, bathing. Ambulation: independent IADLs Independent: shopping, housework, finances, food prep, telephone, transportation , medication admin. Review of Systems Review of Systems: Review of systems is notable for dyspnea which is gotten worse over the course of the weekend as her catheter has been clamped to assess for reaccumulation. She is having no chest pain and no fevers night sweats or chills. She has had weight loss with her therapy. The rest of the 12 point review of systems is unremarkable. Exam & Diagnostic Data Vital Signs and I&O Vital Signs Date Time Temp Pulse Resp B/P B/P Pulse O2 O2 Flow FiO2 Mean Ox Delivery Rate 06/08 1446 95 Nasal 2.0L Cannula 06/08 1347 98.1 75 18 100/70 92 Nasal 2.0L Cannula 06/08 0856 82 106/60 06/08 0800 Nasal 1.0L Cannula 06/08 0647 98.3 72 20 110/70 84 06/08 0000 Nasal 1.0L Cannula 06/07 2212 98.9 77 20 94/50 93 Nasal 1.0L Cannula 06/07 1835 97 Nasal 2.0L Cannula Intake & Output 06/08 1600 06/08 0800 06/08 0000 06/07 1600 06/07 0800 06/07 0000 Intake Total 400 100 360 300 200 Output Total 0 Balance 400 100 360 300 200 Intake, IV 0 Intake, Oral 400 100 360 300 200 Number 0 Bowel Movements Output, Urine 0 Patient 119 lb 118 lb Weight Physical Exam: On physical examination she appears well. She does get slightly winded with conversation. Her skin is warm and well perfused with no suspicious lesions noted. The sclerae are anicteric and mucous membranes are moist. There is no cervical or subclavicular lymphadenopathy. Breath sounds are diminished on the right side. There is a catheter in place with some clear fluid in the drainage tubing and the catheter is clamped. Cardiac exam shows regular rhythm and rate no murmurs or sounds. The abdomen is soft and nontender with no masses. The periphery shows no cyanosis clubbing or edema. Her neurologic exam is grossly normal for motor and sensory function. Imaging Results: CT scan of the chest shows a catheter in place at the right lung base. There is a loculated pleural effusion at the apex. There is a fairly large pleural fluid collection at the right base. Assessment/Plan Assessment/Plan 82-year-old with metastatic lung cancer and a significant symptomatic malignant pleural effusion. She is obviously draining a high amount and his reaccumulated with clamping of her pleural tube. I think a Pleurx catheter will be excellent outpatient management. We will proceed tomorrow with a Pleurx placement and then get her on a twice a week drainage schedule. This will allow for her to continue with therapy and hopefully remain home as an outpatient. The risks and benefits of the procedure have been explained to the patient and her and they understand and agree Consult Acknowledgment - Thank you for your consult request.
--- NOTE | 2018-06-08 16:17 | Operative Report ---
Operative/Inv Procedure Report Surgery Date: 06/08/18 Name of Procedure: Right Pleurx catheter Pre-Operative Diagnosis: Symptomatic malignant right pleural effusion Post-Operative Diagnosis: Same Estimated Blood Loss: none Surgeon/Sand Wheeler: Abhilash Obando MD Anesthesia: local monitored anesthesi Operative/Procedure Note Note: After placement of monitoring lines patient's right chest was prepped and draped in a sterile fashion. 1% lidocaine was used local anesthetic. The needle catheter was used to enter the chest at approximately the same level as the in place pleural catheter. There was a brisk return of a serous effusion and the catheter was advanced with no resistance. A wire was passed through the catheter into the chest with no resistance. An incision was made along the lower chest wall and a counterincision made at the wire. The Pleurx catheter was tunneled from the anterior the posterior incision with the dacryon cuff placed subcutaneously. The wire tract was then gently and progressively dilated with the sheath dilator. The Pleurx catheter was then passed through the sheath with no resistance. Approximately 2 L of serous effusion was drained. The posterior incision was closed with a Vicryl suture and the catheter was secured to the skin with a silk suture. It was dressed with the enclosed dressing kit. After the dressing was in place the pleural drainage catheter dressing was taken down and the catheter was removed intact with no resistance. The patient tarted the procedure well was brought to the recovery room awake in stable condition.
[2018-06-08 21:57] VITALS: BP 94/52
[2018-06-09 06:29] VITALS: BP 128/70
--- NOTE | 2018-06-09 07:23 | PN- Housestaff ---
Joo Smallwood 06/09/18 0723: Subjective Follow-up For: Malagnant right side pleural effusion. Subjective: Patient seen and examined on bedside. She said she is on 2 litter of oxygen today and she is doing great. She is complaining of Pain when she is coughing. Otherwise her SOB and cough improved alot. She denies fever , chest pain, palpitaion, chest heaviness, abdominal pain diarrhea, constipation, burning micturation. Review of Systems Constitutional: Reports: see HPI. Objective Last 24 Hrs of Vital Signs/I&O Vital Signs Date Time Temp Pulse Resp B/P B/P Pulse O2 O2 Flow FiO2 Mean Ox Delivery Rate 06/09 0629 98.1 63 20 128/70 95 Nasal Cannula 06/09 0000 Nasal 1.0L Cannula 06/08 2157 98.6 70 20 94/52 98 Nasal 2.0L Cannula 06/08 1638 98 Nasal 2.0L Cannula 06/08 1446 95 Nasal 2.0L Cannula 06/08 1347 98.1 75 18 100/70 92 Nasal 2.0L Cannula 06/08 0856 82 106/60 06/08 0800 Nasal 1.0L Cannula Intake & Output 06/09 0800 06/09 0000 06/08 1600 Intake Total 200 100 400 Output Total Balance 200 100 400 Intake, Oral 200 100 400 Patient 119 lb 119 lb Weight Weight Bed scale Measurement Method Physical Exam General Appearance: Alert, Oriented X3, Cooperative, No Acute Distress Cardiovascular: Normal S1, Normal S2 Lungs: Clear to Auscultation, Tthere was decrease air entery on left upper side of the chest and right upper lobe. Abdomen: Normal Bowel Sounds, Soft, No Tenderness Extremities: No Cyanosis, No Edema, Normal Pulses, No Tenderness/Swelling, clubbing Assessment/Plan Assessment: 82-year-old woman with past medical history lung adenocarcinoma status post wedge resection(chemotherapy, radiation), breast cancer, bladder cancer, coronary artery disease, hypertension, hyperlipidemia, COPD, GERD. Presented to emergency department with shortness of breath and pain in the right side of the chest. She is on 3 L of oxygen at home started 21 May. At the time of presentation to emergency department her vitals and labs are given below. Vitals: Blood pressure 131/97, heart rate 70, respiratory rate 20, temperature 97.2, SaO2 94%. Labs; CBC WBC: 7.1, Hgb/hematocrit 11.9/36.8 Serum electrolytes are significant for sodium 132. Pleural fluid cytology WBC 1000, mesothelial cell 22, RBC 429, fluid protein 4.2 , LDH 387 Problems list: *Right-sided pleural effusion *Lung cancer Past medical history of bladder cancer breast cancer, CAD, hypertension, hyperlipidemia, COPD, GERD Right-sided pleural effusion: -2100 mL of fluid is drained -PleurX catheter catheter was replaced by Dr. Obando -Pateint doing good after ctheter placement -He is compalining of Pain on coughing at tube side -Patient tube care will be done on out patient basis CT scan of the chest: -Report shows:1. Moderate pulmonary emphysema. 2. Large mass of right hilum obstructs the right upper lobe bronchi and right upper lobe remains collapsed. The pulmonary and pleural-based nodules remain unchanged compared to 05/21/2018. Also, although a pleural drainage catheter is present in the inferior right hemithorax, the size of the moderate, loculated right pleural effusion is not appreciably changed compared to 05/21/2018. 3. The mediastinal lymphadenopathy is stable compared to 05/21/2018. 4. Atherosclerotic disease of coronary arteries and thoracic aorta. Pulmonary arteries are enlarged, suggestive of pulmonary arterial hypertension. -We will follow-up pulmonology recommendation -She is on 2 L oxygen and saturation is good -Nebulization will continue Pulmonology recommendation appreciated: -PleurX catheter placed today - will be followed up on out patient basis -Home nurse will drain two time a week. *History of lung adenocarcinoma status post wedge resection, chemo, and radiation: -Patient will follow up on outpatient basis -Chemotherapy will done on outpatient basis *DNI/DNR *DVT prophylaxis with subcutaneous heparin hold for time being *History of breast cancer, on anastrozole -History of bladder cancer,COPD,CAD,Hypertension,Hyperlipidemia -Home medication continued Problem List: 1. Lung cancer 2. Bladder cancer 3. Breast cancer 4. Hypoxia 5. Shortness of breath at rest 6. Pleural effusion 7. COPD (chronic obstructive pulmonary disease) Pain Ratin Pain Location: no pain Pain Goal: Remain pain free Pain Plan: Pain managment pathway Tomorrow's Labs & Rationales: Brad Marcelino 06/09/18 0927: Attending MD Review Statement Attending Statement Attending MD Statement: examined this patient, discuss w/resident/PA/HAND ROUNDER, agreed w/resident/PA/HAND ROUNDER, discussed with family, reviewed EMR data (avail), discussed with nursing, discussed with case mgmt, reviewed images, amended to note Attending Assessment/Plan: 82 yr old female with non small cell lung cancer s/p chemo, wedge resection right side, radiation who was seen recently in the ER on 05/21 for sob and was found to be hypoxic and was sent home on oxygen. Pt presented back to ER with worsening sob and was found to have worsening rt side pleural effusion. Hypoxia with recurrent pleural effusion in pt with Lung cancer- malignant pleural effusion. Hemodynamcially stable on oxygen supplementation with chest tube intact. Afebrile. Follow pulmoanry recommendations S/P pleurex catheter placement. Oncology f/u. Plan for chemotherapy as per oncology as outpatient. Discharge recommendations based on pulmonary and [facility]. Arrange home services for pleurex catheter drainage twice a week. Medically stbale for discharge with outpatient follow up with Pulmonary Dr Garcia and oncology Dr Fletcher.
[2018-06-09 08:45] VITALS: BP 128/70
[2018-06-09] MEDS ORDERED: PERCOCET 5-3251 EACH PO ×2 (09:10→09:28)
--- NOTE | 2018-06-09 11:46 | PN- Pulmonary ---
Subjective HPI/Critical Care Issues: pt seen and examined. s/p pleurx catheter placement. feeling better. anticipating discharge. some discomfort at surgical site. no n/v/d/c, no cp, no graham. Objective Current Medications: Current Medications Sig/Juaquin Start time Last Medication Dose Route Stop Time Status Admin Acetaminophen 650 MG Q6P PRN 06/02 1100 DCD 06/08 PO 0851 Albuterol Sulfate 3 ML Q4P PRN 06/02 1945 DCD 06/06 INH 1325 Alprazolam 0.25 MG TID PRN 06/02 1115 DC 06/07 PO 06/09 1114 2116 Anastrozole 1 MG DAILY 06/02 1136 DCD 06/09 PO 0845 Atorvastatin Calcium 10 MG 1700 06/02 1700 DCD 06/08 PO 1616 Budesonide/ 2 PUF BID 06/02 2100 DCD 06/09 Formoterol Fumarate INH 0848 Calcium/Vitamin D 500 MG DAILY 06/02 1137 DCD 06/09 PO 0845 Cefazolin Sodium 1,000 MG IQ8 06/08 1600 DC 06/08 IV 06/09 0001 2308 Cyanocobalamin 1,000 MCG DAILY 06/02 1140 DCD 06/09 PO 0845 Docusate Sodium 100 MG DAILY 06/05 1032 DCD 06/09 PO 0848 Ezetimibe 10 MG DAILY 06/02 1142 DCD 06/09 PO 0845 Guaifenesin/Codeine 10 ML Q6P PRN 06/02 2000 DCD 06/08 Phosphate PO 2229 Heparin Sodium 5,000 UNIT Q8 06/09 0600 DCD 06/09 (Porcine) SC 0511 Multivitamins 1 TAB DAILY 06/02 1142 DCD 06/09 Therapeutic PO 0845 Nebivolol 5 MG DAILY 06/02 1142 DCD 06/09 PO 0845 Omeprazole 40 MG DAILY AC 06/02 1142 DCD 06/09 PO 0510 Oxycodone/ 1 TAB Q4-6 PRN PRN 06/08 1245 DCD 06/09 Acetaminophen PO 0511 Oxycodone/ 2 TAB Q4-6 PRN PRN 06/08 1245 DCD Acetaminophen PO Patient Medication 1 ED ONE ONE 06/09 1115 DC Teaching ED 06/09 1116 Polyethylene Glycol 17 GM DAILY 06/05 1031 DCD 06/09 PO 0851 Senna/Docusate Sodium 2 TAB DAILY 06/05 1031 DCD 06/09 PO 0852 Sodium Chloride 2 SPRAY Q4P PRN 06/02 2345 DCD PATRICIA Tiotropium [place] 1 PUF DAILY 06/02 1143 DCD 06/09 INH 0847 Vital Signs & I&O Last 24 Hrs of Vitals and I&O: Vital Signs Date Time Temp Pulse Resp B/P B/P Pulse O2 O2 Flow FiO2 Mean Ox Delivery Rate 06/09 0845 98.1 63 20 128/70 06/09 0800 95 Nasal 2.0L Cannula 06/09 0629 98.1 63 20 128/70 95 Nasal Cannula 06/09 0000 Nasal 1.0L Cannula 06/08 2157 98.6 70 20 94/52 98 Nasal 2.0L Cannula 06/08 1638 98 Nasal 2.0L Cannula 06/08 1446 95 Nasal 2.0L Cannula 06/08 1347 98.1 75 18 100/70 92 Nasal 2.0L Cannula Intake & Output 06/09 1600 06/09 0800 06/09 0000 Intake Total 200 100 Output Total Balance 200 100 Intake, Oral 200 100 Patient 119 lb Weight Weight Bed scale Measurement Method Exam Other Physical Findings: [id number] heent-o2 cvs-s1,s2 lungs-right sided pleurx catheter, improved breath sounds on right abd-soft,bs+ ext-without edema Impression/Plan Impression/Plan Impression/Plan: Impression 82 year old woman * malignant pleural effusion * COPD Plan -s/p PleurX catheter - ensure that patient is set up with VNA services - visiting nursing/drainage training at home - twice weekly - to see Dr. Obando next week -f/u with me in office -TRC/Nebs -continue inhalers -continue oxygen supplementation to goal fio2 >88% -f/u oncology recommendations -At home - takes Advair/Spiriva/Proair DVT prophylaxis at all times DNR/DNI
== END 2018-06-09 11:32 | disposition home health service (06) | DRG 181 ==
LOC: ERH 06:48 → 2NA 09:52 → ERHI 09:52 → ENRESERV 10:14 → ENTRNSPT 11:04 → EDTRNSPTSTS 11:54 → EDTRNSPT 11:54 → 2NA 12:35 → EDTRNSPTSTS 12:44 → EDTRNSPT 13:22 → CMPTRNSPT 13:37 → 2NA 15:27 → ENTRNSPT 06-08 12:51 → EDTRNSPT 06-08 13:11 → EDTRNSPTSTS 06-08 13:11 → CMPTRNSPT 06-08 13:16 → ENPENDDIS 06-09 09:56 → ENTRNSPT 06-09 11:26 → EDTRNSPTSTS 06-09 11:27 → EDTRNSPT 06-09 11:27 → 2NA 06-09 11:32 → CMPTRNSPT 06-09 11:37
PROVIDERS: Hospitalist; Internal Medicine Interventional Cardiology; Pediatrics; Physical Medicine & Rehabilitation Pain Medicine; Preventive Medicine Addiction Medicine
PROC: 0W9930Z Drainage of Right Pleural Cavity with Drainage Device, Percutaneous Approach (ICD-10-PCS; principal; 2018-06-02)
PROC: 0B9N30Z Drainage of Right Pleura with Drainage Device, Percutaneous Approach (ICD-10-PCS; 2018-06-08)
DX: C34.90 Malignant neoplasm of unspecified part of unspecified bronchus or lung (principal); J91.0 Malignant pleural effusion; R09.02 Hypoxemia; J44.9 Chronic obstructive pulmonary disease, unspecified; C50.919 Malignant neoplasm of unspecified site of unspecified female breast; I25.10 Atherosclerotic heart disease of native coronary artery without angina pectoris; Z85.51 Personal history of malignant neoplasm of bladder; K21.9 Gastro-esophageal reflux disease without esophagitis; Z92.21 Personal history of antineoplastic chemotherapy; Z90.2 Acquired absence of lung [part of]; I10 Essential (primary) hypertension; Z66 Do not resuscitate; Z88.1 Allergy status to other antibiotic agents; Z88.5 Allergy status to narcotic agent; Z79.82 Long term (current) use of aspirin; Z79.51 Long term (current) use of inhaled steroids; Z98.61 Coronary angioplasty status
CPT/HCPCS: 2NASP; 87075; 36592; 71045; 71046; 82436; 88305; 93005; 93010; C1729; J0690; J1644; J2001; J3490